=== PATIENT | female | born 1940 | race Caucasian/White ===

== ENCOUNTER 2020-01-04 10:16 | Outpatient (RCR) | payer MEDICARE, SELFPAY | END 2020-03-31 23:59 | disposition home or self-care (01) | LOC: ANHLAB 10:16 | PROVIDERS: PCP Family Medicine; Visit Provider Physician Assistant | DX: R50.9 Fever, unspecified (principal) | CPT/HCPCS: 36415; 86308; 86757; 87040 ==

== ENCOUNTER 2020-01-04 10:24 | Outpatient (CLI) | payer MEDICARE, SELFPAY ==
[2020-01-04 11:27] LABS: Monoscreen Negative (Negative); Negative Monotest Control Negative (Negative); Positive Monotest Control Positive (Positive)
== END 2020-01-04 10:25 | disposition home or self-care (01) ==
PROVIDERS: PCP Family Medicine; Visit Provider Family Medicine
DX: R50.9 Fever, unspecified (principal)
CPT/HCPCS: 36415; 86308; 86757

== ENCOUNTER → 2020-01-04 12:15 | Outpatient (CLI) | payer MEDICARE, SELFPAY ==
--- NOTE | ~2020-01-04 | CT_ITS ---
EXAMINATION: CT knee RT w con DATE: 01/04/2020 13:06 INDICATION: Fever. Right knee pain post knee replacement. TECHNIQUE: High resolution computed tomography (CT) of the right knee was performed with 75 mL Omnipa que-350 intravenous contrast. Additional sagittal and coronal reconstructions were performed. Automat ed exposure control and iterative reconstruction technique were employed. The dose-length product was 211.85 mGy-cm. COMPARISON: Right knee radiographs dated 02/05/2018 FINDINGS: Right total knee arthroplasty without patellar resurfacing which appears well seated in near-anatomic alignment. Metallic streak artifact obscures some of the adjacent bone and soft tissues most promine nt at the level of the tibial tray and surrounding portions of the femoral component. No fracture. No evident periarticular lucency to suggest loosening or osteomyelitis. Small osseous excrescence with cortical and medullary continuity along the posterolateral metaphyseal region of the proximal tibia a long the margin of the proximal tibiofibular joint line suspicious for a small osteochondroma althoug h differential would include a large degenerative marginal osteophyte. There is a small amount of sub articular cystic change along the patellar apical ridge and medial side of the lateral facet likely r elated to osteoarthritis. Postoperative scarring anterior to the knee. No right knee joint effusion. There is contrast opacification extending from the ivwju-apo-yfqp popliteal artery extending into the anterior and posterior tibial and peroneal arteries with small amount of scattered nonhemodynamicall y significant atherosclerotic plaque. There is abrupt transition in the caliber of the hleuy-tsn-ymdf popliteal vein which appears normal in caliber proximally but decompressed versus atretic more dista lly at the level of the femoral component. Assessment for patency is limited by the absence of contra st opacification of the veins. IMPRESSION: 1. Right total knee arthroplasty with no evident joint effusion or acute osseous abnormality. 2. Abrupt transition in caliber in the vnoyc-dhy-bdlj popliteal vein which is of indeterminate etiolo gy or chronicity. The phase of contrast is arterial with minimal if any contrast within the veins ocwart iting assessment for patency/thrombosis. Could consider lower extremity venous Doppler study as clini navi indicated. Reviewed, dictated and finalized at location A. TOR APPRAISER IMPRESSION: 1. Right total knee arthroplasty with no evident joint effusion or acute osseou s abnormality. 2. Abrupt transition in caliber in the wmapx-nnz-tdvz popliteal vein which is o f indeterminate etiology or chronicity. The phase of contrast is arterial with minimal if any contrast within the veins limiting assessment for patency/thromb osis. Could consider lower extremity venous Doppler study as clinically indicat ed.
[2020-01-04 12:46] LABS: Blood Urea Nitrogen 11 mg/dL (8-26); Estimated Glomerular Filt Rate > 60
== END ==
PROVIDERS: PCP Family Medicine; Visit Provider Physician Assistant
DX: M25.561 Pain in right knee (principal); R50.9 Fever, unspecified
CPT/HCPCS: 73701; Q9967

== ENCOUNTER 2020-06-23 09:00 | Outpatient (RCR) | payer SELFPAY | END 2020-06-23 23:59 | disposition home or self-care (01) | LOC: ANHAUDIO 09:00 | PROVIDERS: PCP Family Medicine | DX: Z46.1 Encounter for fitting and adjustment of hearing aid (principal) | CPT/HCPCS: 92593 ==

== ENCOUNTER 2020-10-12 10:19 | Outpatient (CLI) | payer MEDICARE, SELFPAY | END 2020-10-12 10:20 | disposition home or self-care (01) | LOC: ANHAUDASC 10:20 | PROVIDERS: PCP Family Medicine; Visit Provider Otolaryngology | DX: H61.23 Impacted cerumen, bilateral (principal); H90.3 Sensorineural hearing loss, bilateral | CPT/HCPCS: 92557; 92567 ==

== ENCOUNTER 2020-12-14 11:00 | Outpatient (RCR) | payer MEDICARE, SELFPAY | END 2020-12-14 23:59 | disposition home or self-care (01) | LOC: ANHAUDIO 11:00 | PROVIDERS: PCP Family Medicine; Visit Provider Otolaryngology | DX: Z46.1 Encounter for fitting and adjustment of hearing aid (principal) | CPT/HCPCS: 99199; V5261; V5264 ==

== ENCOUNTER 2021-05-25 13:00 | Outpatient (CLI) | payer MEDICARE, SELFPAY ==
--- NOTE | ~2021-05-25 | US_ITS ---
EXAMINATION: US venous doppler [facility] DATE: 05/25/2021 13:53 INDICATION: Left lower limb swelling TECHNIQUE: Grayscale ultrasound images without and with compression and Doppler ultrasound images of the left lower extremity veins were obtained. COMPARISON: None. FINDINGS: The visualized portions of left common femoral vein, profunda (deep) femoral vein, femoral vein, popl iteal vein, peroneal veins, posterior tibial veins, gastrocnemius vein and greater saphenous vein out flow are patent. There are couple loculated fluid collections at the left popliteal fossa, the more s uperficial measuring 3.9 x 1.6 x 2.3 cm in the deeper collection measuring 5.0 x 2.0 x 4.3 cm, the de eper consistent with a Bryan's cyst and the second likely representing an additional ganglion cyst. IMPRESSION: 1. No deep venous thrombosis in the left lower limb. 2. Moderate-sized Bryan's cyst and likely second smaller and more superficial ganglion cyst at the le ft popliteal fossa. Reviewed, dictated and finalized at location A. IMPRESSION: 1. No deep venous thrombosis in the left lower limb. 2. Moderate-sized Bryan's cyst and likely second smaller and more superficial g anglion cyst at the left popliteal fossa.
== END 2021-05-25 13:01 | disposition home or self-care (01) ==
LOC: ANHIMG 13:08
PROVIDERS: PCP Family Medicine; Visit Provider Family Medicine
DX: R60.9 Edema, unspecified (principal); M71.22 Synovial cyst of popliteal space [Baker], left knee
CPT/HCPCS: 93971

== ENCOUNTER 2021-06-20 12:27 | Outpatient (CLI) | payer MEDICARE, SELFPAY ==
--- NOTE | ~2021-06-20 | XR_ITS ---
XR chest 2V DATE: 06/20/2021 12:49 INDICATION: Shortness of breath, hypertension, atrial fibrillation. TECHNIQUE: PA and lateral views COMPARISON: 07/31/2019 2 view chest FINDINGS: Normal heart size. Normal aortic unfolding. No hilar or mediastinal enlargement. Hiatal hernia. No pulmonary infiltrate or consolidation, pleural effusion or pulmonary vascular congestion or pneumo thorax is detected. Degenerative spurring and minimal dextroscoliosis of the thoracic spine. Osteopenia. IMPRESSION: No active cardiopulmonary disease or significant change since 07/31/2019 Reviewed, dictated and finalized at location A. IMPRESSION: No active cardiopulmonary disease or significant change since 2018
== END 2021-06-20 12:28 | disposition home or self-care (01) ==
PROVIDERS: PCP Family Medicine; Visit Provider Nurse Practitioner Family
DX: R06.02 Shortness of breath (principal)
CPT/HCPCS: 71046

== ENCOUNTER 2021-07-06 11:09 | Outpatient (CLI) | payer MEDICARE, SELFPAY ==
--- NOTE | ~2021-07-06 | XR_ITS ---
XR hip RT min 2V DATE: 07/06/2021 11:25 INDICATION: Right hip pain TECHNIQUE: AP and lateral views COMPARISON: 07/24/2016 right hip FINDINGS: There is levoscoliosis the lumbar spine and prominent degenerative disc disease at L4-5 and L5-S1. The pubic symphysis and sacroiliac joints are intact. No fracture, dislocation, avascular necrosis or bone destruction of the right hip. IMPRESSION: Levoscoliosis and degenerative disc disease of the lumbar spine No significant abnormality of the right hip Reviewed, dictated and finalized at location B.
== END 2021-07-06 11:10 | disposition home or self-care (01) ==
PROVIDERS: PCP Family Medicine; Visit Provider Family Medicine
DX: M25.551 Pain in right hip (principal); M51.36 Other intervertebral disc degeneration, lumbar region
CPT/HCPCS: 73502

== ENCOUNTER 2021-07-09 20:11 | Observation (INO) | payer MEDICARE, SELFPAY ==
--- NOTE | ~2021-07-09 | CT_ITS ---
EXAMINATION: CT abd pelvis lumbar w con DATE: 07/09/2021 22:45 INDICATION: Lower abdominal and right flank pain, back pain TECHNIQUE: Computed tomography (CT) of the abdomen and pelvis was performed with 100 cc Omnipaque 350 intravenous contrast. Automated exposure control and iterative reconstruction technique were employe d. Exam dose: 1007.48 mGy-cm total exam DLP. COMPARISON: 08/13/2016 MRI lumbar spine FINDINGS: Minimal discoid atelectasis or scarring at the lung bases. Heart size is within normal rang e. No pericardial or pleural effusion. Moderate size hiatal hernia. The liver, gallbladder, bile ducts, spleen, pancreas and pancreatic duct, and adrenal glands and kidn eys are unremarkable. No urinary tract calculus or hydroureteronephrosis is detected. The urinary cristina dder is relatively evacuated, which may account for moderate thickening of the wall. Uterus and adnex al areas are unremarkable. There is atherosclerotic calcification of the abdominal aorta and iliac arteries but no aneurysm. No intraperitoneal or retroperitoneal or pelvic mass lesion or adenopathy or ascites is detected. Diverticulosis is noted involving the sigmoid colon and to a minimal extent right colon. No CT eviden ce of diverticulitis. Normal appendix. No bowel obstruction, bowel wall thickening, pneumatosis or in traperitoneal free air is detected. Small fat-containing umbilical hernia. Diffuse idiopathic skeletal hyperostosis of the thoracic spine. Mild compression fracture deformity o f T12. Multilevel degenerative disc disease of the lumbar spine. Grade 1 anterolisthesis at L4-5 and L5-S1. Prominent degenerative change at the apophyseal joints. IMPRESSION: Diverticulosis of the colon; no CT evidence of diverticulitis Normal appendix No urinary tract calculus or hydroureteronephrosis Moderate sized hiatal hernia Mild compression fracture deformity of T12, new since 08/13/2016 MRI of the lumbar spine Reviewed, dictated and finalized at Location [facility]. Reviewed, dictated and finalized at location A. IMPRESSION: Diverticulosis of the colon; no CT evidence of diverticulitis Normal appendix No urinary tract calculus or hydroureteronephrosis Moderate sized hiatal hernia Mild compression fracture deformity of T12, new since 08/13/2016 MRI of the lumb ar spine
[2021-07-09 20:10] VITALS: BP 216/94; PULSE 89; RESP 16; TEMP 36.6; O2SAT 95
--- NOTE | 2021-07-09 20:30 | ED.ABDPAIN ---
HPI - Abdominal Pain General Chief Complaint: Back Pain/Injury Stated Complaint: right flank pain Time Seen by Provider: 07/09/21 20:30 History of Present Illness HPI narrative: Right lower back pain radiating into the right hip for weeks. Much worse over the past few days. Causing difficulty with ambulating and taking care of herself. She has had outpatient x-rays and was started on Sargeant without relief. Related Data Home Medications Medication Instructions Recorded Confirmed aspirin 81 mg tablet,delayed 81 mg PO DAILY 11/26/19 07/10/21 release flecainide 100 mg tablet 100 mg PO Q12H 11/26/19 07/10/21 mecobalamin (vitamin B12) 1,000 2,000 mcg SUBLINGUAL DAILY tablet 12/04/19 07/10/21 mcg disintegrating tablet,sublingual prednisone 5 mg tablet 10 mg PO DAILY 11/04/20 07/10/21 leflunomide 20 mg tablet 10 mg PO DAILY 05/25/21 07/10/21 [place] 3 Fish Oil 100 mg PO DAILY 07/09/21 07/10/21 calcium carbonate-vitamin D3 1 tablet PO DAILY 07/09/21 07/10/21 [Calcium with Vitamin D] acebutolol 200 mg PO DAILY 07/10/21 07/10/21 atorvastatin 10 mg PO DAILY 07/10/21 07/10/21 [id number]-czydybtgh-brmdjfal 1 inh INHALATION DAILY 07/10/21 07/10/21 [Trelegy Ellipta] indapamide 1.25 mg PO DAILY 07/10/21 07/10/21 levothyroxine [Synthroid] 75 mcg PO DAILY 07/10/21 07/10/21 Allergies Allergy/AdvReac Type Severity Reaction Status Date / Time No Known Allergies Allergy Unknown Verified 06/20/21 11:56 Review of Systems Review of Systems: All systems reviewed & are unremarkable except as noted in HPI and below Constitutional: Constitutional: Denies chills and Denies fever(s) ENT: Reports system reviewed and no additional complaints, except as documented Cardiovascular: Cardiovascular: Denies chest pain Respiratory: Respiratory: Denies dyspnea Gastrointestinal: Gastrointestinal: Reports no additional gastrointestinal complaints Genitourinary: Genitourinary: Reports flank pain Musculoskeletal: Musculoskeletal: Reports back pain Neurologic: Reports system reviewed and no additional complaints, except as documented [facility] Past Medical History Medical History COPD exacerbation Essential (primary) hypertension High cholesterol Primary osteoarthritis of left knee Strabismus Temporal arteritis Thyroid disease Surgical History Surgical History H/O cataract extraction History of knee surgery right knee 2019 Family History Family History Father Acute myocardial infarction Family history of cardiovascular disease Family history of sudden , Onset Age: 46 Family history of elevated blood lipids Family history of coronary artery disease Grandparent Diabetes mellitus Family history of coronary artery disease Family history of malignant neoplasm of breast in first degree relative Mother Family history of glaucoma Hypertension Family history of elevated blood lipids Sibling Hypertension Social History Social History Smoking status: Never smoker Second hand tobacco smoke exposure: Yes Alcohol intake: current Drinks per week: 2 Substance use: never Gender identity (if verbalized by the patient): Female Spiritual care concerns: No Exam Const: General: no acute distress and alert Orientation/consciousness: patient oriented x3 HENMT: Head: normal to inspection Resp: Effort & Inspection: normal respiratory effort Auscultation: clear to auscultation bilaterally Cardio: Rate: regular rate Rhythm: regular rhythm GI: GI Palp: Yes Soft to palpation and No Tenderness to palpation present (GI) : General: Yes CVA tenderness on the right Back/Spine/Pelvis: Thoracic/Lumbar Spine: paraspinal muscle tenderness and lumbar spinal tenderness Sacroiliac joints: on
--- NOTE | 2021-07-09 20:49 | ECG_ITS ---
Measurements Intervals [place] Rate: 83 P: 27 W[place]: 175 QRS: -33 QRSD: 86 T: 24 QT: 371 QTc: 436 Interpretive Statements SINUS RHYTHM LOW QRS VOLTAGE IN PRECORDIAL LEADS VOLTAGE CRITERIA FOR LVH BORDERLINE R WAVE PROGRESSION, ANTERIOR LEADS INFERIOR INFARCT, AGE INDETERMINATE BASELINE ARTIFACT- I, II, III, AVR, AVL, AVF, V1-V6 ABNORMAL ECG Electronically Signed On 07-10-2021 7:00:25 CDT by Gael Rincon D.O.
[2021-07-09 21:02] VITALS: BP 220/202; PULSE 85; RESP 14; O2SAT 95
[2021-07-09 21:04] VITALS: BP 180/89; PULSE 86; RESP 11; O2SAT 95
[2021-07-09 21:12] VITALS: BP 196/105; PULSE 86; RESP 15; O2SAT 95
[2021-07-09] MEDS: LABETALOL HCL INJ 100 MG/20 ML VIAL 20 MG IV PUSH (21:12)
[2021-07-09] MEDS: MORPHINE SULFATE (*CRX) 4 MG/ML INJ IV PUSH (21:14)
[2021-07-09 21:19] LABS: Hematocrit 46.3 % (37.0-47.0); Hemoglobin 15.3 g/dL (12.0-15.0); Mean Corpuscular Hemoglobin 32.8 pg (26-34); Mean Corpuscular Volume 99.1 fl (80-100); Mean Platelet Volume 10.3 fl (7.4-10.4); Platelet Count Result 151 k/mm3 (150-375); Red Blood Count 4.67 M/mm3 (4.2-5.4); Red Cell Distribution Width 13.8 % (11.5-14.5); White Blood Count 8.3 K/mm3 (4.5-10.0)
[2021-07-09 21:28] LABS: INR 1.4; Prothrombin Time 16.7 Seconds (11.1-14.7)
[2021-07-09 21:29] LABS: Alanine Aminotransferase 20 U/L (4-35); Albumin Level 4.4 g/dL (3.5-5.1); Alkaline Phosphatase 98 U/L (38-126); Anion Gap 7 mmol/L (8-16); Aspartate Amino Transferase 30 U/L (14-36); Blood Urea Nitrogen 11 mg/dL (7-17); Calcium 9.9 mg/dL (8.4-10.2); Carbon Dioxide 28 mmol/L (22-30); Chloride 102 mmol/L (98-107); Estimated CRCL calculation 57 ml/min; Estimated Glomerular Filt Rate > 60; Glucose 106 mg/dL (65-110); Partial Thromboplastin Time 26.7 SECONDS (22.3-36.8); Potassium 3.7 mmol/L (3.4-5.0); Sodium 137 mmol/L (137-145)
[2021-07-09 21:53] LABS: Band Neutrophils Percent 6 % (0-6); Lymphocytes Absolute Manual 0.91 K/mm3 (1.1-4.5); Monocytes Absolute Manual 1.57 K/mm3 (0.1-0.90); Monocytes Percent Manual 19 % (3-9); Neutrophils Absolute Manual 5.81 K/mm3 (1.7-7.2); Neutrophils Percent Manual 64 % (46-73); Platelet Estimate Adequate (Adequate); Total Cells Counted 100
[2021-07-09 22:00] LABS: Add Urine Microscopic? YES; Appearance Urine Clear (Clear); Bilirubin Urine Negative (Negative); Blood Urine Negative (Negative); Color Urine Yellow (Yellow); Glucose Urine UA Negative (Negative); Ketones Urine Negative (Negative); Leukocyte Esterase Ur Trace LEU/UL (Negative); Mucus Urine Rare /lpf; Nitrate Urine Negative (Negative); Protein Urine Negative (Negative); RBC Urine 0-2 /hpf (0-2); Specific Grav Ur 1.012 (1.001-1.035); Squamous Epithelial Cell Urine Many /hpf (Few); Urobilinogen Urine Negative mg/dL (<2.0)
[2021-07-10] VITALS (11 sets, daily range): BP systolic 111–173; BP diastolic 59–84; PULSE 74–93; RESP 9–22; TEMP 36–36.4; O2SAT 92–96; BMI 36.5
[2021-07-10] MEDS: MORPHINE SULFATE (*CRX) 2 MG/ML INJ IV PUSH ×4 (02:43→21:08)
--- NOTE | 2021-07-10 03:31 | ADMGEN ---
This patient, Nidia Lang, was admitted to 2 Medical Room 244-. Patient/family oriented to hospital policies and general routines including ID bracelet, bed and alarms, visiting hours, pain management, procedures, bathroom and other care routines, personal items, smoking policy, room service/diet, and visiting hours. Information on how to activate the Rapid Response Team has been discussed. Patient/Family are encouraged to report perceived risks to care and to ask questions if they do not understand what they are told or what they should do.
[2021-07-10] MEDS: CYANOCOBALAMIN 1,000 MCG TABLET 2000 MCG PO (11:14)
[2021-07-10] MEDS: FLECAINIDE ACETATE 100 MG TABLET PO ×2 (11:14→21:08)
[2021-07-10] MEDS: ASPIRIN 81 MG ENTERIC TABLET PO (11:14)
[2021-07-10] MEDS: INDAPAMIDE 1.25 MG TABLET PO (11:14)
[2021-07-10] MEDS: ACEBUTOLOL HCL 200 MG CAPSULE PO (11:17)
[2021-07-10] MEDS: allopurinoL 100 MG TABLET PO (11:17)
[2021-07-10] MEDS: ATORVASTATIN 10 MG TABLET PO (11:17)
[2021-07-10] MEDS: predniSONE 10 MG TABLET PO (11:17)
--- NOTE | 2021-07-10 12:32 | PM.IMHP ---
H&P: HPI History of Present Illness Date/Time: 07/10/21 12:32 patient 81-year-old female with history of rheumatoid arthritis as well as osteoarthritis presented emergency department with a complaint back pain radiating to right hip, pain is persisting for few weeks now will couple of days its getting worse and difficulty with ambulation and able to do her ADLs, will start the patient on steroid and gabapentin to help with her pain and have PT OT evaluate the patient and further recommendation to follow. also a presenting complaint was abdominal pain CT scan of abdomen did not show diverticulitis or any other pathology, patient does have my T12 compression fracture age indeterminate, will apply Lidoderm patch, will continue to monitor and further recommendation to follow. Chief Complaint: back and abdominal pain Review of Systems Review of Systems: All systems reviewed & are unremarkable except as noted in HPI and below PMFSH Past Medical History Medical History COPD exacerbation Essential (primary) hypertension High cholesterol Primary osteoarthritis of left knee Strabismus Temporal arteritis Thyroid disease Surgical History Surgical History H/O cataract extraction History of knee surgery right knee 2019 Family History Family History Father Acute myocardial infarction Family history of cardiovascular disease Family history of sudden , Onset Age: 46 Family history of elevated blood lipids Family history of coronary artery disease Grandparent Diabetes mellitus Family history of coronary artery disease Family history of malignant neoplasm of breast in first degree relative Mother Family history of glaucoma Hypertension Family history of elevated blood lipids Sibling Hypertension Social History Social History Smoking status: Never smoker Second hand tobacco smoke exposure: Yes Alcohol intake: current Drinks per week: 2 Substance use: never Gender identity (if verbalized by the patient): Female Spiritual care concerns: No Meds Home Medications and Allergies Home Medications Medication Instructions Recorded Confirmed Type aspirin 81 mg tablet,delayed 81 mg PO DAILY 11/26/19 07/10/21 History release flecainide 100 mg tablet 100 mg PO Q12H 11/26/19 07/10/21 History mecobalamin (vitamin B12) 1,000 2,000 mcg SUBLINGUAL DAILY tablet 12/04/19 07/10/21 History mcg disintegrating tablet,sublingual prednisone 5 mg tablet 10 mg PO DAILY 11/04/20 07/10/21 History allopurinol 100 mg tablet 100 mg PO DAILY #90 tablet 11/10/20 07/10/21 Rx leflunomide 20 mg tablet 10 mg PO DAILY 05/25/21 07/10/21 History albuterol sulfate 90 mcg/actuation 1 - 2 inh INHALATION Q4-6H PRN 06/20/21 07/10/21 Rx aerosol inhaler #8.5 g [place] 3 Fish Oil 100 mg PO DAILY 07/09/21 07/10/21 History calcium carbonate-vitamin D3 1 tablet PO DAILY 07/09/21 07/10/21 History [Calcium with Vitamin D] acebutolol 200 mg PO DAILY 07/10/21 07/10/21 History atorvastatin 10 mg PO DAILY 07/10/21 07/10/21 History eiwfqliiust-atsbospvp-wgzbwqub 1 inh INHALATION DAILY 07/10/21 07/10/21 History [Trelegy Ellipta] indapamide 1.25 mg PO DAILY 07/10/21 07/10/21 History levothyroxine [Synthroid] 75 mcg PO DAILY 07/10/21 07/10/21 History Allergies Allergy/AdvReac Type Severity Reaction Status Date / Time No Known Allergies Allergy Unknown Verified 06/20/21 11:56 Vital Signs Vital Signs - 24 hr 07/09/21 20:10 07/09/21 21:02 07/09/21 21:04 Temperature 97.9 F Pulse Rate 89 85 86 Respiratory Rate 16 14 11 L Blood Pressure 216/94 H 220/202 H 180/89 H Pulse Oximetry 95 95 95 07/09/21 21:12 07/10/21 00:32 07/10/21 01:02 Temperature Pulse Rate 86 81 78 Respiratory Rate 15 9 L 2
[2021-07-10] MEDS: LIDOCAINE 5% PATCH 2 PATCH TRANSDERM (15:42)
[2021-07-10] MEDS: OMEGA 3 POLYUNSAT FATTY ACIDS 1 GM CAP PO (15:43)
[2021-07-10] MEDS: methylPREDNISolone SOD SUCC 125 MG VIAL 60 MG IV PUSH (15:43)
[2021-07-10] MEDS: LEFLUNOMIDE 10 MG TABLET 1 EACH BY MOUTH (15:44)
[2021-07-10] MEDS: GABAPENTIN 100 MG CAPSULE PO ×2 (16:18→18:09)
[2021-07-10] MEDS: methylPREDNISolone SOD SUCC 40 MG VIAL 20 MG IV PUSH (21:07)
[2021-07-11 05:38] VITALS: BP 140/73; PULSE 94; RESP 18; TEMP 36.3; O2SAT 93
[2021-07-11] MEDS: LIDOCAINE 5% PATCH 2 PATCH TRANSDERM (08:44)
[2021-07-11 08:45] VITALS: PULSE 100
[2021-07-11] MEDS: ACEBUTOLOL HCL 200 MG CAPSULE PO (08:45)
[2021-07-11] MEDS: allopurinoL 100 MG TABLET PO (08:45)
[2021-07-11] MEDS: GABAPENTIN 100 MG CAPSULE PO (08:46)
[2021-07-11] MEDS: ATORVASTATIN 10 MG TABLET PO (08:46)
[2021-07-11] MEDS: CYANOCOBALAMIN 1,000 MCG TABLET 2000 MCG PO (08:46)
[2021-07-11] MEDS: ASPIRIN 81 MG ENTERIC TABLET PO (08:47)
[2021-07-11] MEDS: LEFLUNOMIDE 10 MG TABLET 1 EACH BY MOUTH (08:47)
[2021-07-11] MEDS: INDAPAMIDE 1.25 MG TABLET PO (08:47)
[2021-07-11] MEDS: OMEGA 3 POLYUNSAT FATTY ACIDS 1 GM CAP PO (08:47)
[2021-07-11 08:48] VITALS: PULSE 100
[2021-07-11] MEDS: FLECAINIDE ACETATE 100 MG TABLET PO (08:48)
--- NOTE | 2021-07-11 09:27 | PM.IMPN ---
Progress Note: A&P Assessment and Plan (1) Low back pain: Code(s): M54.5 - Low back pain Status: Acute Assessment and Plan: 07/10/21 12:32 patient 81-year-old female with history of rheumatoid arthritis as well as osteoarthritis presented emergency department with a complaint back pain radiating to right hip, pain is persisting for few weeks now will couple of days its getting worse and difficulty with ambulation and able to do her ADLs, will start the patient on steroid and gabapentin to help with her pain and have PT OT evaluate the patient and further recommendation to follow. also a presenting complaint was abdominal pain CT scan of abdomen did not show diverticulitis or any other pathology, patient does have my T12 compression fracture age indeterminate, will apply Lidoderm patch, will continue to monitor and further recommendation to follow. (2) Uncontrolled hypertension: Code(s): I10 - Essential (primary) hypertension Status: Acute Assessment and Plan: upon arrival patient blood pressure was extremity 216/94, most likely secondary to pain and patient may have not taken home medication, since then patient blood pressure is close to target will continue to monitor. (3) Right hip pain: Code(s): M25.551 - Pain in right hip Status: Acute Assessment and Plan: patient with history of osteoarthritis, most likely patient has osteoarthritis will start the patient on steroid and gabapentin, will have PT OT evaluate the patient and further recommendation to follow. (4) Primary osteoarthritis of left knee: Code(s): M17.12 - Unilateral primary osteoarthritis, left knee Status: Chronic Assessment and Plan: patient with history of osteoarthritis of the knee seen by orthopedic surgeon recommending arthroplasty however patient on oral prednisone due to temporal arteritis unable to get off the prednisone, surgery is on hold until patient is off the prednisone. (5) Temporal arteritis: Code(s): M31.6 - Other giant cell arteritis Status: Chronic Assessment and Plan: patient with a temperature arthritis seen by Rheumatology on prednisone states the headache is better. Subjective Date/time seen: 07/11/21 09:27 Review of Systems Review of Systems: All systems reviewed & are unremarkable except as noted in HPI and below Exam Narrative: elderly frail hard of hearing Patient is comfortable, NAD HEENT: eyes are clear and none icteric LUNGS:CTA HEART: RR S1S2 ABD: BS+, Soft and nontender Lower extremities: no edema SKIN: nonjaundiced Neuro: grossly intact. Objective Data Vital Signs Vital Signs: Vital Signs - 24 hr 07/10/21 11:14 07/10/21 11:17 07/10/21 12:00 Temperature 96.9 F L Pulse Rate 93 93 74 Respiratory Rate 16 Blood Pressure 111/68 Pulse Oximetry 94 07/10/21 21:08 07/10/21 21:37 07/11/21 05:38 Temperature 97.6 F 97.4 F L Pulse Rate 74 85 94 Respiratory Rate 18 18 Blood Pressure 138/59 L 140/73 Pulse Oximetry 92 93 07/11/21 08:45 07/11/21 08:48 Temperature Pulse Rate 100 100 Respiratory Rate Blood Pressure Pulse Oximetry Intake/Output Intake/Output: Intake & Output 07/08/21 07/09/21 07/10/21 07/11/21 23:59 23:59 23:59 23:59 Intake Total 760 200 Output Total 400 100 Balance 360 100 Meds/Results Medications: Active Medications Generic Name Dose Route Start Last Admin Trade Name Freq PRN Reason Stop Dose Admin Acebutolol HCl 200 mg 07/10/21 09:00 07/11/21 08:45 Acebutolol Hcl 200 Mg Capsule PO 200 mg DAILY KEYON Administration Albuterol 1 - 2 puff 07/10/21 10:04 Albuterol Sulfate (*Sp) Aerosol 1 Puff INHALATION Q4-6H PRN shortness of breath or wheezing Allopurinol 100 mg 07/10/21 09:00 07/11/21 08:45 Allopurinol 100 Mg Tablet PO 100 mg DAILY KEYON Administration Aspirin 81 mg 07/10/21 09:00 07/11/21 08:47 Aspirin 81 Mg
--- NOTE | 2021-07-11 09:51 | PM.DS ---
DS: Admitting Diagnosis Admitting Diagnosis back pain right hip pain DS: Discharge Diagnosis Discharge Diagnosis (1) Low back pain: Code(s): M54.5 - Low back pain Status: Acute (2) Uncontrolled hypertension: Code(s): I10 - Essential (primary) hypertension Status: Acute (3) Right hip pain: Code(s): M25.551 - Pain in right hip Status: Acute (4) Temporal arteritis: Code(s): M31.6 - Other giant cell arteritis Status: Chronic DS: Summary Hospital Course Hospital Course: 81-year-old female with history of rheumatoid arthritis as well as osteoarthritis presented emergency department with a complaint back pain radiating to right hip, pain is persisting for few weeks now will couple of days its getting worse and difficulty with ambulation and able to do her ADLs. patient had seen primary care doctor who has ordered x-rays and Vicodin for pain control however pain was not bearable hands came to the ER for evaluation. She was evaluated with a right hip x-ray which showed levoscoliosis and degenerative disc disease of the lumbar spine with no significant abnormality in the right hip. A CT of the abdomen pelvis lumbar with contrast was done which showed diverticulosis of the colon with no evidence of diverticulitis. With normal apnea next. No urinary tract calculus or hydronephrosis. Shows moderate-size hiatal hernia with mild compression fracture deformity of T12 which is new since 2015 MRI she was started on IV steroid along with gabapentin is small does and lidocaine patch. She was evaluated with physical therapy and occupational therapy during the hospital stay. She improved with these management. Is suspected that the pain is related to lumbar strain versus osteoarthritis and degenerative disc disease in the back. She does not have any evidence of any fracture or any osteoarthritis in the hip. She has had gabapentin in the past with limited success however she did improve with start of this medication has suggested to continue and follow up as an outpatient for continued need for this medication. She was suggested to have home health therapy to continue physical therapy and occupational therapy at home which is arranged at the time of discharge. With improvement with steroid her ASD and usual prednisone dose was increased to 20 mg a day with further taper in the next week or 2 back to her usual doses of 10 mg daily. She takes prednisone 10 mg a day for history of temporal arteritis. She was noted have uncontrolled hypertension on admission which is most likely related to her pain. Her blood pressure was better controlled with better control of the pain and was within normal limit at the time of discharge. She was continued on her usual home medications for her blood pressure during the hospital stay. She is advised to follow up with primary care doctor for continued evaluation and management of her back pain/ right hip pain Quality Status at Discharge Overall status at discharge: patient is progressing back to baseline Time Spent with Patient Time attestation: Total time spent providing and/or coordinating discharge services: 45 minutes Exam Narrative: elderly frail hard of hearing not in acute distress Patient is comfortable, NAD HEENT: eyes are clear and none icteric LUNGS:CTA no respiratory distress HEART: RR S1S2 ABD: BS+, Soft and nontender Lower extremities: no edema no cyanosis or clubbing SKIN: nonjaundiced Neuro: grossly intact. alert and oriented x3 able to ambulate without any support /device DS: Data Imaging Radiologist's impression: ITS Impressions Miscellaneous CT Procedure 07/10/21 06:58 IMPRESSION: Diverticulosis of the colon; no CT evidence of diverticulitis Normal appendix No urinary tract calculus or hydroureteronephrosis Moderate sized hiatal hernia Mild compression fracture deformity of T12, new since 08/13/2016 MRI of the lumbar spine
[2021-07-11] MEDS: FLUTICASONE/UMECLIDIN/VILANTER 100-62.5-25 MCG ELLIPTA 1 PUFF INHALATION (10:20)
[2021-07-11 10:22] VITALS: O2SAT 95
[2021-07-11] MEDS: predniSONE 20 MG TABLET PO (10:33)
--- NOTE | 2021-07-11 11:08 | PCOTNOTE ---
Attempted to see patient, patient declined as she was getting discharged.
== END 2021-07-11 11:56 | disposition home health service (06) ==
LOC: ANHED 07-10 03:03 → ANH2MED 07-10 06:30
PROVIDERS: Admitting Provider Internal Medicine; Emergency Provider Emergency Medicine; PCP Family Medicine; Visit Provider Internal Medicine
DX: M54.5 Low back pain (principal); M48.54XA Collapsed vertebra, not elsewhere classified, thoracic region, initial encounter for fracture; I10 Essential (primary) hypertension; J44.9 Chronic obstructive pulmonary disease, unspecified; E78.00 Pure hypercholesterolemia, unspecified; M31.6 Other giant cell arteritis; M06.9 Rheumatoid arthritis, unspecified; E07.9 Disorder of thyroid, unspecified; Z79.82 Long term (current) use of aspirin; Z79.51 Long term (current) use of inhaled steroids; K57.30 Diverticulosis of large intestine without perforation or abscess without bleeding; K44.9 Diaphragmatic hernia without obstruction or gangrene
CPT/HCPCS: 36415; 72132; 74177; 80053; 81001; 85025; 85610; 85730; 93005; 96374; 96375; 96376; 97110; 97161; 97165; 99285; A9270; G0378; J2270; J2920; J2930; J7512; Q9967

== ENCOUNTER 2021-07-23 11:58 | Emergency (ER) | payer MEDICARE, SELFPAY ==
[2021-07-23 12:00] VITALS: BP 158/89; PULSE 80; RESP 16; TEMP 36.4; O2SAT 96
--- NOTE | 2021-07-23 13:01 | ED.BACK ---
HPI - Back Pain/Injury General Chief Complaint: Back Pain/Injury Stated Complaint: BACK PAIN Time Seen by Provider: 07/23/21 12:49 History of Present Illness HPI Narrative: 81 yo female w/ h/o compression fracture presents to the ED c/o back pain. She was admitted here 2 weeks ago for pain control after she was found to have a lumbar compression fracture. She has been on hydrocodone 10/325 mg. She reports that this was not controlling her pain, so tramadol 100 mg was added. Even after taking both of these this morning her pain was not controlled. On the way here EMS gave her 4 mg morphine. She says that improved her pain ,but it is still significant. She refused penitentiary placement. She has an appointment with pain management next week. Related Data Home Medications Medication Instructions Recorded Confirmed aspirin 81 mg tablet,delayed 81 mg PO DAILY 11/26/19 07/18/21 release [place] 3 Fish Oil 100 mg PO DAILY 07/09/21 07/18/21 calcium carbonate-vitamin D3 1 tablet PO DAILY 07/09/21 07/18/21 [Calcium with Vitamin D] Trelegy Ellipta 1 inh INHALATION DAILY 07/10/21 07/18/21 acebutolol 200 mg PO DAILY 07/10/21 07/18/21 indapamide 1.25 mg PO DAILY 07/10/21 07/18/21 levothyroxine [Synthroid] 75 mcg PO DAILY 07/10/21 07/18/21 Allergies Allergy/AdvReac Type Severity Reaction Status Date / Time No Known Allergies Allergy Unknown Verified 07/23/21 12:20 Review of Systems Review of Systems: All systems reviewed & are unremarkable except as noted in HPI and below Constitutional: Constitutional: Denies chills, Denies fever(s) and Denies weakness ENT: Denies dizziness Cardiovascular: Cardiovascular: Denies chest pain Respiratory: Respiratory: Denies dyspnea Gastrointestinal: Gastrointestinal: Denies nausea Genitourinary: Genitourinary: Denies hematuria and Denies dysuria Musculoskeletal: Musculoskeletal: Reports back pain Neurologic: Denies numbness and Denies weakness [facility] Past Medical History Medical History COPD exacerbation Essential (primary) hypertension High cholesterol Primary osteoarthritis of left knee Strabismus Temporal arteritis Thyroid disease Surgical History Surgical History H/O cataract extraction History of knee surgery right knee 2019 Family History Family History Father Acute myocardial infarction Family history of cardiovascular disease Family history of sudden , Onset Age: 46 Family history of elevated blood lipids Family history of coronary artery disease Grandparent Diabetes mellitus Family history of coronary artery disease Family history of malignant neoplasm of breast in first degree relative Mother Family history of glaucoma Hypertension Family history of elevated blood lipids Sibling Hypertension Social History Social History Smoking status: Never smoker Second hand tobacco smoke exposure: Yes Alcohol intake: current Drinks per week: 2 Substance use: never Gender identity (if verbalized by the patient): Female Spiritual care concerns: No Exam Const: General: cooperative, no acute distress and uncomfortable Nutritional Appearance: well nourished Orientation/consciousness: patient oriented x3 HENMT: Head: normal to inspection Resp: Effort & Inspection: normal respiratory effort Auscultation: clear to auscultation bilaterally Cardio: Rate: regular rate Rhythm: regular rhythm Skin: General skin exam: normal color Neuro: General: patient oriented x3, moves all extremities, no focal motor deficits and CN's II-XI intact bilaterally Speech: normal speech Extrem: General: normal to inspection Psych: Appearance: grossly normal Mental Status: mental status grossly normal Affect: normal affect At
[2021-07-23] MEDS: HYDROmorphone HCL INJ (*CRX) 1 MG/ML SYR 0.5 MG IM (14:59)
[2021-07-23 16:05] VITALS: BP 173/86; PULSE 74; RESP 16; O2SAT 100
== END 2021-07-23 16:05 | disposition home or self-care (01) ==
PROVIDERS: Emergency Provider Emergency Medicine; PCP Family Medicine
DX: M54.5 Low back pain (principal); J44.9 Chronic obstructive pulmonary disease, unspecified; I10 Essential (primary) hypertension; Z79.82 Long term (current) use of aspirin
CPT/HCPCS: 96372; 99283; J1170

== ENCOUNTER → 2021-08-03 17:49 | Outpatient (CLI) | payer MEDICARE, SELFPAY ==
--- NOTE | ~2021-08-03 | MR_ITS ---
EXAMINATION: MR lumbar spine wo con DATE: 08/03/2021 18:43 INDICATION: Acute lumbar radiculopathy. TECHNIQUE: Magnetic resonance imaging (MRI) of the lumbar spine was performed without intravenous con trast. Sequences included sagittal T2-weighted FSE, sagittal T2-weighted FS FSE, sagittal STIR FSE, s agittal T1-weighted FSE, and axial T2-weighted FSE. COMPARISON: Lumbar spine MRI 08/13/2016, CT 07/09/2021 FINDINGS: There is 22 degrees levoscoliosis of lumbar spine. There is a burst fracture of L1 inferior endplate with 1/5 loss of height of bone marrow edema, and retropulsion of bone 3 mm into central sp inal canal. There is 3 mm retrolisthesis of T12 on L1 and L1 on L2, 3 mm anterolisthesis of L3 on L4, and 5 mm anterolisthesis of L5 on S1. There is a chronic compression fracture of T12 with 1/5 loss o f height. There is severely decreased disc height at L1-L2 and L2-L3, mildly decreased disc height at L3-L4, severely decreased disc height at L4-L5, and moderately decreased disc height at L5-S1. The d istal spinal cord signal intensity is normal. The conus medullaris is at L2. The following disc level s are specifically discussed: L1-L2: The disc is bulging and has an annular fissure. There is severe bilateral facet joint osteoart hritis. There is moderate right and mild left neural foraminal stenosis. There is moderate central ca nal stenosis. L2-L3: The disc is bulging. There is severe bilateral facet joint osteoarthritis. There is mild bilat eral neural foraminal stenosis. There is mild central canal stenosis. L3-L4: The disc is bulging and has an annular fissure. There is severe bilateral facet joint osteoart hritis. There is mild bilateral neural foraminal stenosis. There is moderate central canal stenosis. L4-L5: The disc is bulging and has an annular fissure. There is severe bilateral facet joint osteoart hritis. There is mild bilateral neural foraminal stenosis. There is mild central canal stenosis. L5-S1: The disc is bulging and has an annular fissure. There is severe bilateral facet joint osteoart hritis. There is mild bilateral neural foraminal stenosis. There is no central canal stenosis. IMPRESSION: 1. Acute L1 burst fracture, new from 07/09/2021. 2. Severe lumbar spondylosis. 3. Lumbar levoscoliosis. Reviewed, dictated and finalized at location A.
== END ==
PROVIDERS: PCP Family Medicine; Visit Provider Pain Medicine Pain Medicine
DX: M54.16 Radiculopathy, lumbar region (principal); M47.816 Spondylosis without myelopathy or radiculopathy, lumbar region; S32.011A Stable burst fracture of first lumbar vertebra, initial encounter for closed fracture; M41.9 Scoliosis, unspecified
CPT/HCPCS: 72148

== ENCOUNTER 2021-09-03 08:50 | Inpatient (IN) | payer MEDICARE, SELFPAY ==
[2021-09-03] VITALS (9 sets, daily range): BP systolic 117–177; BP diastolic 63–104; PULSE 70–83; RESP 12–18; TEMP 36.3–36.6; O2SAT 94–99
--- NOTE | ~2021-09-03 | CT_ITS ---
EXAMINATION: CT abdomen pelvis wo con DATE: 09/03/2021 12:53 INDICATION: History of compression fracture. Abdomen pain. Bilateral hip pain. TECHNIQUE: Computed tomography (CT) of the abdomen and pelvis was performed without intravenous contr ast. The dose-length product was 1146.71 mGy-cm. Automated exposure control and iterative reconstruction technique were employed. COMPARISON: CT lumbar spine and abdomen dated 07/09/2021. FINDINGS: Lung bases are unremarkable. Heart size normal. No significant pleural or pericardial effus ion. The liver, spleen, pancreas, adrenal glands and kidneys are unremarkable. Gallbladder is mildly diste nded. Nonobstructive bowel gas pattern. Normal appendix. Colonic diverticulosis without evidence for diverticulitis. There is focal soft tissue anterior to the left psoas muscle measuring 2.8 x 1.3 cm w hich has a cystic appearance, likely benign. There is a new compression fracture of L1. There is stab le chronic T12 compression fracture at the superior endplate. There is levoscoliosis. There is osteoa rthritis of the hips. No acute hip fracture is identified. No definite sacral fracture. No significan t vascular abnormality. No lymphadenopathy. IMPRESSION: 1. New L1 compression fracture with approximately 25% loss of vertebral body height. 2: Stable superior endplate compression fracture of T12. Reviewed, dictated and finalized at location A. IMPRESSION: 1. New L1 compression fracture with approximately 25% loss of vertebral body he ight. 2: Stable superior endplate compression fracture of T12.
--- NOTE | ~2021-09-03 | XR_ITS ---
XR hip BI 2V w AP pelvis 09/03/2021 11:24 INDICATION: Bilateral hip pain PROCEDURE: 2 views each hip and AP pelvis COMPARISON: 07/06/2021 FINDINGS: Fracture, dislocation or subluxation is not identified. Pelvic rings are intact. There are mild degenerative changes of the hips. The soft tissues appear within normal limits. No foreign bodi es are identified. IMPRESSION: 1: NO ACUTE BONE OR JOINT ABNORMALITY IDENTIFIED. Reviewed, dictated and finalized at location A.
--- NOTE | 2021-09-03 11:05 | ED.GENADULT ---
HPI - General Adult General Chief complaint: Extremity Injury, Lower <JEAN PAUL Mccoy BC - Last Filed: 09/03/21 15:41> Stated complaint: pain that is worse <JEAN PAUL Mccoy BC - Last Filed: 09/03/21 15:41> Time Seen by Provider: 09/03/21 10:22 <JEAN PAUL Mccoy BC - Last Filed: 09/03/21 15:41> Source: patient <JEAN PAUL Mccoy BC - Last Filed: 09/03/21 15:41> Mode of arrival: EMS <JEAN PAUL Mccoy BC - Last Filed: 09/03/21 15:41> Limitations: no limitations <JEAN PAUL Mccoy BC - Last Filed: 09/03/21 15:41> History of Present Illness HPI narrative: Patient presents for evaluation of left hip pain since yesterday. She contacted EMS due to severity of her pain. She cannot identify any injury or event that caused her pain. She was sitting in a chair at the time of symptom onset and pain progressively worsened since then. She states the pain is throbbing, 10 out of 10 in severity, without radicular component. No saddle anesthesia. No bladder/bowel incontinence. She was admitted here in July of she was having low back pain. Prior to the time of her admission she had an x-ray of her lumbar spine that showed level scoliosis with DDD. She was treated with vicodin. Pain persisted. She had a CT here that showed compression deformity at T12. She was evaluated by PT and OT. She returned after her time of discharge with continued pain. She was discharged from the emergency department after that evaluation with an increase in her pain medication. She states that her vocational psychologist told her that her T12 compression fracture was likely secondary to prednisone use for temporal arteritis. No additional complaints or concerns. <JEAN PAUL Mccoy BC - Last Filed: 09/03/21 15:41> Related Data Home medications: Home Medications Medication Instructions Recorded Confirmed aspirin 81 mg tablet,delayed 81 mg PO DAILY 11/26/19 09/03/21 release [place] 3 Fish Oil 100 mg PO DAILY 07/09/21 09/03/21 calcium carbonate-vitamin D3 1 tablet PO DAILY 07/09/21 09/03/21 [Calcium with Vitamin D] Alia Ellipta 1 inh INHALATION DAILY 07/10/21 09/03/21 acebutolol 200 mg PO DAILY 07/10/21 09/03/21 indapamide 1.25 mg PO DAILY 07/10/21 09/03/21 allopurinol 100 mg PO DAILY 09/03/21 09/03/21 atorvastatin 10 mg PO DAILY 09/03/21 09/03/21 docusate sodium 100 mg PO DAILY 09/03/21 09/03/21 flecainide 100 mg PO Q12H 09/03/21 09/03/21 leflunomide 20 mg PO DAILY 09/03/21 09/03/21 levothyroxine [Synthroid] 75 mcg PO DAILY 09/03/21 09/03/21 oxycodone-acetaminophen [Percocet] 1 tablet PO Q6H PRN 09/03/21 09/03/21 prednisone 12.5 mg PO DAILY 09/03/21 09/03/21 <JEAN PAUL Mccoy BC - Last Filed: 09/03/21 15:41> Allergies/adverse reactions: Allergies Allergy/AdvReac Type Severity Reaction Status Date / Time No Known Allergies Allergy Unknown Verified 09/03/21 18:48 <JEAN PAUL Mccoy BC - Last Filed: 09/03/21 15:41> Review of Systems Review of Systems: CONSTITUTIONAL: Denies fever, chills, or sweats. EYES: Denies visual changes, redness, or discharge. ENT: Denies rhinorrhea, congestion, sore throat, or otalgia. CARDIOVASCULAR: Denies chest pain, palpitations, or edema. RESPIRATORY: Denies cough or dyspnea. GASTROINTESTINAL: Denies abdominal pain, nausea, vomiting, or diarrhea. GENITOURINARY: Denies dysuria or hematuria. SKIN: Denies rash or itching. MUSCULOSKELETAL: Reports low back pain and bilateral hip pain NEUROLOGIC: Denies headache, numbness, dizziness, or weakness. PSYCHIATRIC: Denies anxiety or depression. <JEAN PAUL Mccoy BC - Last Filed: 09/03/21 15:41> PMFSH Past Medical History Medical History: Medical History (Updated 09/03/21 @ 22:59 by Radha Mack PA-C) Essential (primary) hypertension Gastroesophageal reflux disease Gout High cholesterol Hypothyroidism Obstructive sleep apnea on CPAP Paroxysmal atr
[2021-09-03] MEDS: ONDANSETRON INJ 4 MG/2 ML VIAL IV PUSH (11:18)
[2021-09-03] MEDS: MORPHINE SULFATE (*CRX) 2 MG/ML INJ IV PUSH (11:18)
[2021-09-03 12:15] LABS: Basophils Absolute Auto 0.1 K/mm3 (0.0-0.1); Basophils Percent Auto 0.5 % (0.2-1.2); Eosinophils Absolute Auto 0.1 K/mm3 (0-0.3); Eosinophils Percent Auto 0.5 % (0-4.4); Hematocrit 41.5 % (37.0-47.0); Hemoglobin 14.2 g/dL (12.0-15.0); Immature Granulocyte Absolute 0.64 K/mm3 (0.00-0.031); Immature Granulocyte Percent A 5.8 % (0-0.5); Lymphocytes Absolute Auto 1.92 K/mm3 (0.9-3.2); Lymphocytes Percent Auto 17.5 % (18.3-44.2); Mean Corpuscular HGB Conc 34.2 g/dl (32-36); Mean Corpuscular Hemoglobin 33.8 pg (26-34); Mean Corpuscular Volume 98.8 fl (80-100); Mean Platelet Volume 10.1 fl (7.4-10.4); Monocytes Absolute Auto 2.7 K/mm3 (0.1-0.6); Monocytes Percent Auto 24.6 % (2.6-8.5); Neutrophils Absolute Auto 5.6 K/mm3 (1.3-6.7); Neutrophils Percent Auto 51.1 % (45.5-73.1); Platelet Count Result 111 k/mm3 (150-375); Red Cell Distribution Width 14.1 % (11.5-14.5)
[2021-09-03 12:24] LABS: Prothrombin Time 12.8 Seconds (11.1-14.7)
[2021-09-03 12:25] LABS: Partial Thromboplastin Time 24.8 SECONDS (22.3-36.8)
[2021-09-03 12:26] LABS: Alanine Aminotransferase 16 U/L (4-35); Albumin Level 3.9 g/dL (3.5-5.1); Alkaline Phosphatase 107 U/L (38-126); Anion Gap 4 mmol/L (8-16); Aspartate Amino Transferase 26 U/L (14-36); Bilirubin,Total 1.4 mg/dL (0.2-1.3); Blood Urea Nitrogen 16 mg/dL (7-17); Calcium 8.9 mg/dL (8.4-10.2); Carbon Dioxide 32 mmol/L (22-30); Chloride 101 mmol/L (98-107); Estimated CRCL calculation 55 ml/min; Estimated Glomerular Filt Rate > 60; Glucose 81 mg/dL (65-110); Sodium 137 mmol/L (137-145)
[2021-09-03] MEDS: oxyCODONE/ACETAMINOPHEN (*CRX) 5-325 MG TABLET 1 TABLET PO (12:33)
[2021-09-03] MEDS: POTASSIUM CHLORIDE 20 MEQ TABLET 40 MEQ PO (13:38)
--- NOTE | 2021-09-03 14:36 | PCCCNOTE ---
Spoke with Ruthie at [facility] regarding possible transfer there today from the ED. Appears there is bed availability and Coordinator at [facility] will evaluate whether patient can be accepted. Clinicals faxed over. Updated Mauro in the ED
[2021-09-03 15:06] LABS: EDCOVIDSCREEN Negative (Negative)
[2021-09-03] MEDS: diazePAM (*CRX) 5 MG TABLET PO (15:41)
--- NOTE | 2021-09-03 16:13 | PCCCNOTE ---
Patient unable to pay $334 x30 day cost of [employer] and is unable to ambulate due to pain. Please update [employer] with patient's progress and potential for long-term care insurance coverage (patient does not have policy information with her but will attempt to have her son obtain the information when he arrives from [place])
--- NOTE | 2021-09-03 17:40 | ADMGEN ---
This patient, Nidia Lang, was admitted to Medical Room 252-. Patient/family oriented to hospital policies and general routines including ID bracelet, bed and alarms, visiting hours, pain management, procedures, bathroom and other care routines, personal items, smoking policy, room service/diet, and visiting hours. Information on how to activate the Rapid Response Team has been discussed. Patient/Family are encouraged to report perceived risks to care and to ask questions if they do not understand what they are told or what they should do.
--- NOTE | 2021-09-03 17:45 | PM.IMHP ---
H&P: HPI History of Present Illness Date/Time: 09/03/21 17:45 Chief Complaint: Back and left hip pain. Narrative: This is an 81-year-old female with COPD, paroxysmal atrial fibrillation, sleep apnea, hypertension, hypothyroidism, temporal arteritis, and dyslipidemia who presented to the emergency department earlier today via EMS from home for evaluation of back and left hip pain. She has been having ongoing issues with chronic back pain for the past 4 to 5 months, to the point where she is now having to see pain management. Per patient report, she had a thoracic burst fracture which has been causing most of her pain, and her dress operator attributes it to her long-term steroid use. She takes oxycodone at home which does help somewhat however last Saturday she received a steroid injection which helped her pain for only a few days. In any regard, yesterday she began experiencing worsening, diffuse low back pain radiating to the left hip that she describes as constant and throbbing though will become sharp with movement.. Her pain medications have not provided her with any relief whatsoever and due to such severe pain she came in today for evaluation where she was found to have a new L1 compression fracture. Due to difficulties controlling her pain and inability to care for herself at home at this time (she lives alone and cannot currently move without pain) she is being admitted. She has not had any falls or injury. No saddle anesthesia, numbness, bowel, or bladder incontinence. She has not had fever, chills, or sweats. Review of Systems Review of Systems: Twelve systems were reviewed with pertinent positives and negatives as per HPI. No fever, chills, or sweats. No recent cold or flu symptoms. Diagnosed with temporal arteritis in January 2020 and she has been on long-term steroids since that time. When they try to wean her steroids her headaches come back, unfortunately. No nausea, vomiting, or diarrhea. She denies dysuria. Except as documented, all other systems were reviewed and are negative. [facility] Past Medical History Medical History (Updated 09/03/21 @ 22:59 by Radha Mack PA-C) Essential (primary) hypertension Gastroesophageal reflux disease Gout High cholesterol Hypothyroidism Obstructive sleep apnea on CPAP Paroxysmal atrial fibrillation Primary osteoarthritis of left knee Strabismus T12 compression fracture Temporal arteritis Surgical History Surgical History (Updated 09/03/21 @ 22:47 by Radha Mack PA-C) History of arthroscopy of right knee (2019) History of cataract extraction History of thyroidectomy History of tonsillectomy History of tubal ligation Family History Family History Father Acute myocardial infarction Family history of cardiovascular disease Family history of sudden , Onset Age: 46 Family history of elevated blood lipids Family history of coronary artery disease Grandparent Diabetes mellitus Family history of coronary artery disease Family history of malignant neoplasm of breast in first degree relative Mother Family history of glaucoma Hypertension Family history of elevated blood lipids Sibling Hypertension Social History Social History (Updated 09/03/21 @ 22:47 by Radha Mack PA-C) Social History: Surrogate decision maker: Chris Lang, son. Code status: Full code. 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 Meds Home Medications and Allergies Home Medications Medication Instructions Recorded Confirmed Type aspirin 81 mg tablet,delayed 81 mg PO DAILY 11/26/19 09/03/21 History release [place] 3 Fish Oil 100 mg PO DAILY 07/09/21 09/03/21 History calcium carbonate-vitamin D3 1 tablet P
[2021-09-03] MEDS: HYDROmorphone HCL INJ (*CRX) 1 MG/ML SYR 0.5 MG IV PUSH (18:23)
[2021-09-03] MEDS: MORPHINE SULFATE (*CRX) 4 MG/ML INJ IV PUSH (21:45)
[2021-09-04] VITALS (8 sets, daily range): BP systolic 117–143; BP diastolic 51–60; PULSE 80–102; RESP 12–20; TEMP 36.3–36.7; O2SAT 94–99; BMI 35.6
[2021-09-04] MEDS: DOCUSATE SODIUM 100 MG CAPSULE PO ×2 (00:19→08:50)
[2021-09-04] MEDS: FLECAINIDE ACETATE 100 MG TABLET PO ×3 (00:19→20:53)
[2021-09-04] MEDS: HYDROcodone/acetaminophen (*CRX) 10-325 MG TABLET 1 TAB PO ×4 (00:20→22:03)
[2021-09-04] MEDS: MORPHINE SULFATE (*CRX) 4 MG/ML INJ IV PUSH (04:16)
[2021-09-04 05:50] LABS: Basophils Absolute Auto 0.1 K/mm3 (0.0-0.1); Basophils Percent Auto 0.6 % (0.2-1.2); Hematocrit 41.4 % (37.0-47.0); Hemoglobin 14.1 g/dL (12.0-15.0); Immature Granulocyte Absolute 0.59 K/mm3 (0.00-0.031); Immature Granulocyte Percent A 7.2 % (0-0.5); Lymphocytes Absolute Auto 1.58 K/mm3 (0.9-3.2); Lymphocytes Percent Auto 19.3 % (18.3-44.2); Mean Corpuscular HGB Conc 34.1 g/dl (32-36); Mean Corpuscular Hemoglobin 33.7 pg (26-34); Mean Corpuscular Volume 98.8 fl (80-100); Mean Platelet Volume 9.9 fl (7.4-10.4); Monocytes Absolute Auto 2.6 K/mm3 (0.1-0.6); Monocytes Percent Auto 31.5 % (2.6-8.5); Neutrophils Absolute Auto 3.4 K/mm3 (1.3-6.7); Neutrophils Percent Auto 41.4 % (45.5-73.1); Platelet Count Result 106 k/mm3 (150-375); Red Blood Count 4.19 M/mm3 (4.2-5.4); Red Cell Distribution Width 14.2 % (11.5-14.5); White Blood Count 8.2 K/mm3 (4.5-10.0)
[2021-09-04 06:04] LABS: Anion Gap 2 mmol/L (8-16); Blood Urea Nitrogen 14 mg/dL (7-17); Calcium 9.1 mg/dL (8.4-10.2); Carbon Dioxide 31 mmol/L (22-30); Chloride 102 mmol/L (98-107); Estimated CRCL calculation 55 ml/min; Estimated Glomerular Filt Rate > 60; Glucose 76 mg/dL (65-110); Magnesium 1.9 mg/dL (1.6-2.3); Potassium 3.8 mmol/L (3.4-5.0); Sodium 135 mmol/L (137-145)
[2021-09-04] MEDS: LEVOTHYROXINE SODIUM 75 MCG TABLET PO (06:14)
[2021-09-04 07:41] LABS: Add Urine Microscopic? YES; Appearance Urine Clear (Clear); Bilirubin Urine Negative (Negative); Blood Urine Negative (Negative); Color Urine Yellow (Yellow); Glucose Urine UA Negative (Negative); Ketones Urine Trace mg/dL (Negative); Leukocyte Esterase Ur Trace LEU/UL (Negative); Mucus Urine Rare /lpf; Nitrate Urine Negative (Negative); Protein Urine Negative (Negative); Specific Grav Ur 1.019 (1.001-1.035); Squamous Epithelial Cell Urine Few /hpf (Few); Urobilinogen Urine Negative mg/dL (<2.0)
--- NOTE | 2021-09-04 07:57 | PCOTNOTE ---
Attempted OT evaluation, per RN wait for determining if patient needs a back brace. Will follow and attempt at later time.
[2021-09-04] MEDS: FLUTICASONE/UMECLIDIN/VILANTER 100-62.5-25 MCG ELLIPTA 1 PUFF INHALATION (08:29)
[2021-09-04] MEDS: allopurinoL 100 MG TABLET PO (08:49)
[2021-09-04] MEDS: predniSONE 10 MG TABLET PO (08:49)
[2021-09-04] MEDS: ACEBUTOLOL HCL 200 MG CAPSULE PO (08:50)
[2021-09-04] MEDS: ASPIRIN 81 MG ENTERIC TABLET PO (08:50)
[2021-09-04] MEDS: ATORVASTATIN 10 MG TABLET PO (08:50)
[2021-09-04] MEDS: INDAPAMIDE 1.25 MG TABLET PO (08:51)
[2021-09-04] MEDS: LEFLUNOMIDE 20 MG TABLET PO (08:51)
[2021-09-04] MEDS: LIDOCAINE 5% PATCH 1 PATCH TRANSDERM (08:52)
--- NOTE | 2021-09-04 10:50 | PCOTNOTE ---
Attempted OT evaluation, per RN back brace is ordered but has not arrived yet, will follow and attempt when back brace is received.
--- NOTE | 2021-09-04 11:00 | PM.IMPN ---
Progress Note: A&P Assessment and Plan (1) Closed compression fracture of L1 vertebra: Qualifiers: Encounter type: initial encounter Qualified Code(s): S32.010A - Wedge compression fracture of first lumbar vertebra, initial encounter for closed fracture Code(s): S32.010A - Wedge compression fracture of first lumbar vertebra, initial encounter for closed fracture Status: Acute Assessment and Plan: Presented with back pain radiating to bilateral hips that she rates as 8/10. CT abdomen/pelvis showed new L1 compression fracture with approximately 25% loss of vertebral body height MRI performed on 08/03/21 reviewed, shows acute L1 burst fracture Appreciate orthopedic surgery evaluation TLSO brace ordered Supportive care to include ice, heat, lidocaine patch, analgesics as needed Appreciate PT/OT evals. She has requested rehab placement Will evaluate vitamin-D levels and supplement as needed. She will need DEXA scan as an outpatient. She is at high risk for fractures given chronic steroid use (2) T12 compression fracture: Code(s): S22.080A - Wedge compression fracture of T11-T12 vertebra, initial encounter for closed fracture Status: Acute Assessment and Plan: Onset June 2021 She has been followed by pain management Had steroid injection on 08/28/2021 (3) Intractable pain: Code(s): R52 - Pain, unspecified Status: Acute Assessment and Plan: Plan as above (4) Hypokalemia: Code(s): E87.6 - Hypokalemia Status: Acute Assessment and Plan: Potassium low on presentation and was supplemented Potassium 3.8 today Continue to monitor BMP (5) Paroxysmal atrial fibrillation: Code(s): I48.0 - Paroxysmal atrial fibrillation Status: Acute Assessment and Plan: Rate is controlled at this time. Established with Cardiology at [facility] Continue flecainide Not on chronic anticoagulation as she reports only 1 episode of atrial fibrillation in the past (6) Obstructive sleep apnea on CPAP: Code(s): G47.33 - Obstructive sleep apnea (adult) (pediatric); Z99.89 - Dependence on other enabling machines and devices Status: Acute Assessment and Plan: Continue CPAP during hospitalization (7) Temporal arteritis: Code(s): M31.6 - Other giant cell arteritis Status: Chronic Assessment and Plan: Onset over 1 year ago Managed by Rheumatology on immunosuppressive therapy Continue prednisone daily Continue leflunomide She reports her cad operator suspects chronic steroid use to be the cause of her compression fractures Subjective Date/time seen: 09/04/21 11:00 Interval history: Date of service: 09/04/2021 Nidia Lang is an 81-year-old female with a history of hypertension, hypothyroidism, MEGAN, paroxysmal atrial fibrillation not on chronic anticoagulation, history of T12 compression fracture followed by pain management and maintained with steroid injections, and history of temporal arteritis on immunosuppresive therapy who is seen in follow up for L1 compression fracture. She has steroid injection 1 week ago on 08/28/2021 per her pain management provider that gave her some pain relief for 2-3 days and since then developed worsened low back pain that started in the right lower back and then spread across the bilateral hips. She denies numbness or tingling of her lower extremities but reports that her right leg feels a bit funny. She denies pain in the buttocks or the back of the legs. Denies loss of bowel or bladder control, though notes 2 days ago, she was incontinent symptoms because she could not get up to use the restroom due to her pain. Denies saddle anesthesia. She rates her back pain as 8/10. She denies nausea or vomiting but does know a decreased appetite. Her last bowel movement was 3 days ago. She denies any urinary symptoms. Denies shortness breath, cough, chest pain,
--- NOTE | 2021-09-04 13:14 | PM.CNOR ---
Assessment and Plan Assessment and plan (1) Closed compression fracture of L1 vertebra: Qualifiers: Encounter type: initial encounter Qualified Code(s): S32.010A - Wedge compression fracture of first lumbar vertebra, initial encounter for closed fracture Code(s): S32.010A - Wedge compression fracture of first lumbar vertebra, initial encounter for closed fracture Status: Acute Assessment and Plan: History, exam, radiographs, CT scan and lumbar spine MRI reviewed. Lumbar spine MRI from August revealed an acute L1 burst fracture which was new from CT scan in July of 2021. CT scan July of 2021 revealed a mild compression fracture of T12. CT scan performed during this hospitalization revealed an L1 compression fracture with approximately 25% loss of vertebral body height. Patient is being followed by pain management and underwent injection 1 week ago per patient report. There is previous discussion regarding a vertebroplasty. Patient was deemed not to be a candidate per patient report. Records requested from [facility] in [facility] for further evaluation review. Patient does have a lumbar corset brace which she received from pain management per patient report an explanation. She reports mild relief of pain today. She can be weight-bearing as tolerated. Recommended family to bring her lumbar corset brace for mobilization with physical therapy. Pain control. Ice or heat as patient tolerates. no surgical intervention planned at this time. Will continue to monitor. History of Present Illness HPI Consult date: 09/04/21 Consult reason: fracture (L1 Burst Fracture ) Chief complaint: L1 fracture/intractable pain Narrative: 81-year-old female admitted with acute lumbar spine pain. History, exam and imaging reviewed with the patient. She reports having been seen by the [facility] in [facility] last week. She underwent a cortisone injection in her lumbar spine due to an L1 compression fracture which was found on lumbar spine MRI on August 03. Patient reports that she had previously discussed both surgical and conservative treatment options with the pain management physician. It was determined that she would not be a successful candidate for what sounds to be vertebroplasty. There was a decision made to proceed with cortisone injection. Injection was performed last week per the patient report and she noticed an increase in pain status post injection. This prompted her Rival to the emergency room. A CT scan was obtained which revealed an acute L1 burst fracture. Upon further review, L1 burst fracture was present on MRI seen on 08/03. Today, patient reports that she is starting to have some relief of pain. She reports that she does have a lumbar corset brace at home. She has not been wearing that. Review of Systems Constitutional: Constitutional: Reports no additional constitutional complaints, Denies excessive sweating, Denies fever(s) and Denies weight gain Eyes: Eyes: Reports no additional eye complaints and Denies change in vision ENT: Reports system reviewed and no additional complaints, except as documented and Reports Normal hearing present Cardiovascular: Cardiovascular: Denies chest pain, Denies diaphoresis, Denies leg ulcers and Denies dyspnea on exertion Respiratory: Respiratory: Reports no additional respiratory complaints, Denies cough and Denies dyspnea on exertion Gastrointestinal: Gastrointestinal: Reports no additional gastrointestinal complaints, Denies abdominal pain, Denies constipation, Denies nausea and Denies vomiting Genitourinary: Genitourinary: Denies hematuria and Denies urinary frequency Musculoskeletal: Musculoskeletal: Reports no additional musculoskeletal complaints and Reports as per HPI Neurologic: Reports Normal hearing present Endocrine: Endocrine: Reports no additional endocrine complaints, Denies change in body appea
--- NOTE | 2021-09-04 17:28 | PC.NURSE ---
plate hanger here to fir brace
[2021-09-05] VITALS (10 sets, daily range): BP systolic 117–150; BP diastolic 59–83; PULSE 77–92; RESP 14–20; TEMP 36–36.7; O2SAT 92–96
[2021-09-05] MEDS: HYDROcodone/acetaminophen (*CRX) 10-325 MG TABLET 1 TAB PO ×2 (04:46→12:33)
[2021-09-05] MEDS: LEVOTHYROXINE SODIUM 75 MCG TABLET PO (06:16)
[2021-09-05 06:21] LABS: Hematocrit 40.6 % (37.0-47.0); Hemoglobin 13.6 g/dL (12.0-15.0); Mean Corpuscular HGB Conc 33.5 g/dl (32-36); Mean Corpuscular Hemoglobin 33.6 pg (26-34); Mean Corpuscular Volume 100.2 fl (80-100); Mean Platelet Volume 10.6 fl (7.4-10.4); Platelet Count Result 97 k/mm3 (150-375); Red Blood Count 4.05 M/mm3 (4.2-5.4); Red Cell Distribution Width 14.2 % (11.5-14.5); White Blood Count 6.9 K/mm3 (4.5-10.0)
[2021-09-05 06:33] LABS: Anion Gap 5 mmol/L (8-16); Blood Urea Nitrogen 12 mg/dL (7-17); Calcium 9.2 mg/dL (8.4-10.2); Carbon Dioxide 31 mmol/L (22-30); Chloride 102 mmol/L (98-107); Estimated CRCL calculation 56 ml/min; Estimated Glomerular Filt Rate > 60; Glucose 91 mg/dL (65-110); Potassium 3.3 mmol/L (3.4-5.0); Sodium 138 mmol/L (137-145)
[2021-09-05] MEDS: oxyCODONE/ACETAMINOPHEN (*CRX) 5-325 MG TABLET 1 TABLET PO (06:59)
[2021-09-05 08:13] LABS: Vitamin D 25 Hydroxy 18.9 ng/mL
[2021-09-05] MEDS: LIDOCAINE 5% PATCH 1 PATCH TRANSDERM (08:55)
[2021-09-05] MEDS: DOCUSATE SODIUM 100 MG CAPSULE PO (08:57)
[2021-09-05] MEDS: LEFLUNOMIDE 20 MG TABLET PO (08:58)
[2021-09-05] MEDS: ACEBUTOLOL HCL 200 MG CAPSULE PO (08:58)
[2021-09-05] MEDS: allopurinoL 100 MG TABLET PO (08:58)
[2021-09-05] MEDS: FLECAINIDE ACETATE 100 MG TABLET PO ×2 (08:58→21:07)
[2021-09-05] MEDS: INDAPAMIDE 1.25 MG TABLET PO (08:58)
[2021-09-05] MEDS: ATORVASTATIN 10 MG TABLET PO (08:58)
[2021-09-05] MEDS: ASPIRIN 81 MG ENTERIC TABLET PO (08:58)
[2021-09-05] MEDS: predniSONE 10 MG TABLET PO (08:58)
[2021-09-05] MEDS: FLUTICASONE/UMECLIDIN/VILANTER 100-62.5-25 MCG ELLIPTA 1 PUFF INHALATION (09:14)
[2021-09-05] MEDS: MORPHINE SULFATE (*CRX) 2 MG/ML INJ 1 MG IV PUSH ×2 (09:54→17:13)
--- NOTE | 2021-09-05 10:01 | PM.PNORT ---
Progress Note: A&P Assessment and Plan (1) Closed compression fracture of L1 vertebra: Qualifiers: Encounter type: initial encounter Qualified Code(s): S32.010A - Wedge compression fracture of first lumbar vertebra, initial encounter for closed fracture <JEAN PAUL Brady - Last Filed: 09/05/21 10:25> Code(s): S32.010A - Wedge compression fracture of first lumbar vertebra, initial encounter for closed fracture <JEAN PAUL Brady - Last Filed: 09/05/21 10:25> Status: Acute <JEAN PAUL Brady - Last Filed: 09/05/21 10:25> Assessment and Plan: As previously indicated, lumbar spine MRI from August revealed an acute L1 burst fracture which is new from a CT scan noted in July 2021. CT scan on this admission also shows an L1 compression fracture with approximately 25% loss of vertebral body height. Patient has been being followed by Dr. Chao at [facility] in [place], [place]. Patient underwent a an injection of her lumbar spine last week. Awaiting records to be faxed from this office for confirmation of procedures and recent treatment history. She has previously discussed vertebroplasty however was not felt to be a candidate and wanted to proceed with conservative treatment. Patient does have a lumbar corset brace at home. She has 1 at the bedside as well. Patient did get out of the bed to the chair today with her corset brace on. She reports being unable to tolerate out of the chair due to pain. Her pain has worsened from yesterday. She felt her pain was tolerable yesterday. Will initiate scheduled ibuprofen. Discussed with hospitalist service who agrees with plan of care. Continue pain control. Heat pack to be obtained for lumbar spine pain. Lidocaine patches as well. Patient to utilize lumbar corset when out of bed. PT and OT as tolerated. Upon discharge, patient will follow up with Dr. Chao's office. <Lisa GonzalezJEAN PAUL anguiano - Last Filed: 09/05/21 10:25> Additional Plan Imaging, assessment and plan reviewed with attending MD, Dr. Love. No further recommendations at this time. <Lisa ManSharri CarlosJEAN PAUL anguiano - Last Filed: 09/05/21 10:25> Record, diagnostics and orthopedic consultation reviewed. Chronic T12 compression fracture and subacute L1 compression fracture. Apparently not a candidate for vertebroplasty. Currently under care of pain management. Agree with orthopedic consultation and recommendations. Will continue to follow. <Gino Love MD - Last Filed: 09/05/21 11:44> Subjective Subjective Date/Time Seen: 09/05/21 10:01 <JEAN PAUL Brady - Last Filed: 09/05/21 10:25> Interval history: Patient reports increasing lumbar spine pain today. She feels her pain was well controlled yesterday however she has increased pain today. She attempted to get out of the bed to the chair with her lumbar corset brace and was unable to tolerate sitting up in the chair for very long. She is now back in bed and her pain has slightly improved. Overall, no new concerns today aside from increased pain. <JEAN PAUL Brady - Last Filed: 09/05/21 10:25> Review of Systems Constitutional: Constitutional: Reports no additional constitutional complaints, Denies excessive sweating, Denies fever(s) and Denies weight gain <JEAN PAUL Brady - Last Filed: 09/05/21 10:25> Eyes: Eyes: Reports no additional eye complaints and Denies change in vision <JEAN PAUL Brady - Last Filed: 09/05/21 10:25> ENT: Reports system reviewed and no additional complaints, except as documented and Reports Normal hearing present <JEAN PAUL Brady - Last Filed: 09/05/21 10:25> Cardiovascular: Cardiovascular: Denies chest pain, Denies diaphoresis, Denies leg ulcers and Denies dyspnea on exertion <JEAN PAUL Brady - Last Filed: 09/05/21 10:25> Respiratory: Respiratory: Reports no additional respiratory complaints, Denies cough and Denies dyspnea on exertio
[2021-09-05] MEDS: PANTOPRAZOLE 40 MG TABLET PO (12:29)
[2021-09-05] MEDS: IBUPROFEN 600 MG TABLET PO ×2 (12:29→17:08)
[2021-09-05] MEDS: POTASSIUM CHLORIDE 20 MEQ TABLET PO (12:29)
--- NOTE | 2021-09-05 16:02 | PM.IMPN ---
Progress Note: A&P Assessment and Plan (1) Closed compression fracture of L1 vertebra: Qualifiers: Encounter type: initial encounter Qualified Code(s): S32.010A - Wedge compression fracture of first lumbar vertebra, initial encounter for closed fracture Code(s): S32.010A - Wedge compression fracture of first lumbar vertebra, initial encounter for closed fracture Status: Acute Assessment and Plan: Presented with back pain radiating to bilateral hips that she rates as 8/10. CT abdomen/pelvis showed L1 compression fracture with approximately 25% loss of vertebral body height, also evident on MRI performed on 08/03/2021. Appreciate orthopedic surgery evaluation Continue TLSO brace Supportive care to include ice, heat, lidocaine patch, analgesics as needed Appreciate PT/OT evals. She has requested rehab placement She will need DEXA scan as an outpatient. She is at high risk for fractures given chronic steroid use. Will begin vitamin-D supplementation. (2) T12 compression fracture: Code(s): S22.080A - Wedge compression fracture of T11-T12 vertebra, initial encounter for closed fracture Status: Acute Assessment and Plan: Onset June 2021 She has been followed by pain management Had steroid injection on 08/28/2021 Pain management records have been requested (3) Intractable pain: Code(s): R52 - Pain, unspecified Status: Acute Assessment and Plan: Plan as above (4) Hypokalemia: Code(s): E87.6 - Hypokalemia Status: Acute Assessment and Plan: Potassium 3.3 today, likely related to poor p.o. intake Supplement of 20 mEq p.o. KCl Continue to monitor BMP (5) Paroxysmal atrial fibrillation: Code(s): I48.0 - Paroxysmal atrial fibrillation Status: Acute Assessment and Plan: Rate is controlled at this time. Established with Cardiology at [facility] Continue flecainide Not on chronic anticoagulation as she reports only 1 episode of atrial fibrillation in the past (6) Obstructive sleep apnea on CPAP: Code(s): G47.33 - Obstructive sleep apnea (adult) (pediatric); Z99.89 - Dependence on other enabling machines and devices Status: Acute Assessment and Plan: Continue CPAP during hospitalization (7) Temporal arteritis: Code(s): M31.6 - Other giant cell arteritis Status: Chronic Assessment and Plan: Onset over 1 year ago Managed by Rheumatology on immunosuppressive therapy Continue prednisone daily Continue leflunomide 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 She is doing better at this time. This morning she was having uncontrolled pain but she notes improvement this afternoon. She still complains of 6/10 pain that starts in her left hip in spreads across her low back. Denies numbness or tingling of lower extremities. Denies saddle anesthesia. She was able to get up today and walk to the bathroom, but noted this did cause her increased pain. She has been wearing her brace but does not like wearing this as it is uncomfortable. She reports her appetite has been lower. She denies abdominal pain, nausea, vomiting, fevers, or chills. Her last bowel movement was 4 days ago. She denies any urinary symptoms and has been using the bedpan without difficulty. Review of Systems Review of Systems: All systems reviewed & are unremarkable except as
[2021-09-06] VITALS (13 sets, daily range): BP systolic 120–145; BP diastolic 54–78; PULSE 72–101; RESP 18–22; TEMP 36–36.5; O2SAT 94–97
[2021-09-06] MEDS: IBUPROFEN 600 MG TABLET PO ×4 (00:07→23:47)
[2021-09-06 05:39] LABS: Hematocrit 38.7 % (37.0-47.0); Mean Corpuscular HGB Conc 33.6 g/dl (32-36); Mean Corpuscular Hemoglobin 33.6 pg (26-34); Mean Platelet Volume 10.5 fl (7.4-10.4); Platelet Count Result 94 k/mm3 (150-375); Red Blood Count 3.87 M/mm3 (4.2-5.4); White Blood Count 8.2 K/mm3 (4.5-10.0)
[2021-09-06 05:53] LABS: Anion Gap 4 mmol/L (8-16); Blood Urea Nitrogen 15 mg/dL (7-17); Calcium 9.1 mg/dL (8.4-10.2); Carbon Dioxide 31 mmol/L (22-30); Chloride 103 mmol/L (98-107); Estimated CRCL calculation 50 ml/min; Estimated Glomerular Filt Rate > 60; Glucose 91 mg/dL (65-110); Magnesium 1.9 mg/dL (1.6-2.3); Potassium 3.5 mmol/L (3.4-5.0); Sodium 138 mmol/L (137-145)
[2021-09-06] MEDS: LEVOTHYROXINE SODIUM 75 MCG TABLET PO (06:14)
[2021-09-06] MEDS: FLUTICASONE/UMECLIDIN/VILANTER 100-62.5-25 MCG ELLIPTA 1 PUFF INHALATION (07:47)
[2021-09-06] MEDS: HYDROcodone/acetaminophen (*CRX) 10-325 MG TABLET 1 TAB PO ×3 (07:52→21:02)
[2021-09-06] MEDS: allopurinoL 100 MG TABLET PO (07:53)
[2021-09-06] MEDS: predniSONE 10 MG TABLET PO (07:53)
[2021-09-06] MEDS: ACEBUTOLOL HCL 200 MG CAPSULE PO (07:53)
[2021-09-06] MEDS: predniSONE 2.5 MG TABLET PO (07:53)
[2021-09-06] MEDS: ASPIRIN 81 MG ENTERIC TABLET PO (07:54)
[2021-09-06] MEDS: CHOLECALCIFEROL 1,000 UNITS TABLET 1000 UNITS PO (07:54)
[2021-09-06] MEDS: DOCUSATE SODIUM 100 MG CAPSULE PO (07:54)
[2021-09-06] MEDS: ATORVASTATIN 10 MG TABLET PO (07:54)
[2021-09-06] MEDS: PANTOPRAZOLE 40 MG TABLET PO (07:55)
[2021-09-06] MEDS: FLECAINIDE ACETATE 100 MG TABLET PO ×2 (07:55→20:46)
[2021-09-06] MEDS: LEFLUNOMIDE 20 MG TABLET PO (07:55)
[2021-09-06] MEDS: LIDOCAINE 5% PATCH 1 PATCH TRANSDERM (07:55)
[2021-09-06] MEDS: INDAPAMIDE 1.25 MG TABLET PO (07:55)
[2021-09-06] MEDS: ENOXAPARIN 40 MG/0.4 ML SYRINGE SUB-Q (07:55)
--- NOTE | 2021-09-06 07:59 | PM.PNORT ---
Progress Note: A&P Assessment and Plan (1) Closed compression fracture of L1 vertebra: Qualifiers: Encounter type: initial encounter Qualified Code(s): S32.010A - Wedge compression fracture of first lumbar vertebra, initial encounter for closed fracture Code(s): S32.010A - Wedge compression fracture of first lumbar vertebra, initial encounter for closed fracture Status: Acute Assessment and Plan: Lumbar spine MRI from August revealed an acute L1 burst fracture which is new from a CT scan noted in July 2021. CT scan on this admission also shows an L1 compression fracture with approximately 25% loss of vertebral body height. Continue pain control. Heat pack to be obtained for lumbar spine pain. Lidocaine patches as well. Patient to utilize lumbar corset when out of bed. PT and OT as tolerated. Okay for discharge to rehab/skilled nursing when cleared. Upon discharge, patient will follow up with Dr. Chao's office. Subjective Subjective Date/Time Seen: 09/06/21 07:59 Principal diagnosis: L1 compression fracture Interval history: patient awake and alert this morning. Complains of low back pain. Difficulty mobilizing. Plan for rehab/skilled nursing. Review of Systems Constitutional: Constitutional: Reports no additional constitutional complaints, Denies excessive sweating, Denies fever(s) and Denies weight gain Eyes: Eyes: Reports no additional eye complaints and Denies change in vision ENT: Reports system reviewed and no additional complaints, except as documented and Reports Normal hearing present Cardiovascular: Cardiovascular: Denies chest pain, Denies diaphoresis, Denies leg ulcers and Denies dyspnea on exertion Respiratory: Respiratory: Reports no additional respiratory complaints, Denies cough and Denies dyspnea on exertion Gastrointestinal: Gastrointestinal: Reports no additional gastrointestinal complaints, Denies abdominal pain, Denies constipation, Denies nausea and Denies vomiting Genitourinary: Genitourinary: Denies hematuria and Denies urinary frequency Musculoskeletal: Musculoskeletal: Reports no additional musculoskeletal complaints and Reports as per HPI Neurologic: Reports Normal hearing present Endocrine: Endocrine: Reports no additional endocrine complaints, Denies change in body appearance, Denies excessive sweating, Denies polyphagia, Denies polydipsia and Denies polyuria Exam Const: General: cooperative Nutritional Appearance: average body habitus Orientation/consciousness: patient oriented x3 Limitations: no limitations HENMT: Head: normal to inspection Ears: hearing grossly normal bilaterally General nose exam: Normal external nose present Face and sinus: normal facial exam Mouth: Yes moist mucous membranes Teeth and gingiva: dentition normal Eyes: General: appearance normal, both eyes and all related structures Pupils: Equal, round and reactive pupils present EOM: EOMs intact bilaterally Neck: Neck: normal visual inspection Chest: Chest palpation & inspection: normal inspection of the chest Resp: Effort & Inspection: normal respiratory effort and able to speak in complete sentences Cardio: Jugular venous distension: no JVD Back/Spine/Pelvis: Thoracic/Lumbar Spine: thoraco-lumbar ROM limited (by pain ) with forward flexion, with lateral flexion to the right, with lateral flexion to the left, with rotation to the right and with rotation to the left and straight leg raise positive (b/l ) Pelvis: buttock tenderness Other: Lumbar spine pain with radiation across bilateral hips. Positive ankle dorsiflexion/ plantar flexion. Sensation intact to the toes. Range of motion of the knees without limitation. No joint effusions noted. Neuro: General: patient oriented x3 Cranial nerves: Yes Equal, round and reactive pupils present Extrem: Other: Patient with lumbar spine pain which radiates across the lumbar back to both the right and left hip. Palpable
[2021-09-06] MEDS: MORPHINE SULFATE (*CRX) 2 MG/ML INJ 1 MG IV PUSH (10:29)
--- NOTE | 2021-09-06 15:16 | PM.IMPN ---
Progress Note: A&P Assessment and Plan (1) Closed compression fracture of L1 vertebra: Qualifiers: Encounter type: initial encounter Qualified Code(s): S32.010A - Wedge compression fracture of first lumbar vertebra, initial encounter for closed fracture Code(s): S32.010A - Wedge compression fracture of first lumbar vertebra, initial encounter for closed fracture Status: Acute Assessment and Plan: Presented with back pain radiating to bilateral hips CT abdomen/pelvis showed L1 compression fracture with approximately 25% loss of vertebral body height, also evident on MRI performed on 08/03/2021. Appreciate orthopedic surgery evaluation Continue TLSO brace Supportive care to include ice, heat, lidocaine patch, analgesics as needed Appreciate PT/OT evals. Hopeful discharge to SNF tomorrow She will need DEXA scan as an outpatient. She is at high risk for fractures given chronic steroid use. Will begin vitamin-D supplementation. (2) T12 compression fracture: Code(s): S22.080A - Wedge compression fracture of T11-T12 vertebra, initial encounter for closed fracture Status: Acute Assessment and Plan: Onset June 2021 She has been followed by pain management Had steroid injection on 08/28/2021 Pain management records have been requested Continue outpatient follow-up with pain management (3) Intractable pain: Code(s): R52 - Pain, unspecified Status: Acute Assessment and Plan: Plan as above. Pain has improved significantly. (4) Hypokalemia: Code(s): E87.6 - Hypokalemia Status: Acute Assessment and Plan: Potassium 3.5 today Continue to monitor BMP (5) Paroxysmal atrial fibrillation: Code(s): I48.0 - Paroxysmal atrial fibrillation Status: Acute Assessment and Plan: Rate is controlled at this time. Established with Cardiology at [facility] Continue flecainide Not on chronic anticoagulation as she reports only 1 episode of atrial fibrillation in the past (6) Obstructive sleep apnea on CPAP: Code(s): G47.33 - Obstructive sleep apnea (adult) (pediatric); Z99.89 - Dependence on other enabling machines and devices Status: Acute Assessment and Plan: Continue CPAP during hospitalization (7) Temporal arteritis: Code(s): M31.6 - Other giant cell arteritis Status: Chronic Assessment and Plan: Onset over 1 year ago Managed by Rheumatology on immunosuppressive therapy Continue prednisone daily Continue leflunomide 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 She is doing pretty well today. She rates her low back pain as 6/10. She has been able to get up and walk around with therapy and has been sitting in the chair. She has been wearing her brace. She still has not had a bowel movement and reports feeling constipated. She states that she is not eating much but did do well with eating her lunch today. Denies urinary symptoms. Denies nausea, vomiting, fever, chills, shortness breath, cough, chest pain, dizziness, lightheadedness. Review of Systems Review of Systems: All systems reviewed & are unremarkable except as noted in HPI and below Exam Narrative: Ms. Lang is a well-nourished, well-appearing 81-year-old female who is lying supine in bed. She appears comfortable and is in NARD. Neuro: awake, alert and oriented x4, speech clear,
[2021-09-07] VITALS (7 sets, daily range): BP systolic 110–120; BP diastolic 52–60; PULSE 62–85; RESP 14–20; TEMP 35.8–36.6; O2SAT 96–98
[2021-09-07] MEDS: IBUPROFEN 600 MG TABLET PO ×2 (06:09→11:09)
[2021-09-07] MEDS: LEVOTHYROXINE SODIUM 75 MCG TABLET PO (06:09)
[2021-09-07 07:05] LABS: Anion Gap 5 mmol/L (8-16); Blood Urea Nitrogen 16 mg/dL (7-17); Calcium 8.9 mg/dL (8.4-10.2); Carbon Dioxide 28 mmol/L (22-30); Chloride 104 mmol/L (98-107); Estimated CRCL calculation 50 ml/min; Estimated Glomerular Filt Rate > 60; Glucose 81 mg/dL (65-110); Potassium 2.9 mmol/L (3.4-5.0); Sodium 137 mmol/L (137-145)
[2021-09-07] MEDS: polyethylene glycoL 3350 17 GM POWD.PACK PO (07:42)
[2021-09-07] MEDS: LIDOCAINE 5% PATCH 1 PATCH TRANSDERM (07:42)
[2021-09-07] MEDS: FLUTICASONE/UMECLIDIN/VILANTER 100-62.5-25 MCG ELLIPTA 1 PUFF INHALATION (07:55)
[2021-09-07] MEDS: predniSONE 10 MG TABLET PO (08:02)
[2021-09-07] MEDS: allopurinoL 100 MG TABLET PO (08:02)
[2021-09-07] MEDS: predniSONE 2.5 MG TABLET PO (08:02)
[2021-09-07] MEDS: ASPIRIN 81 MG ENTERIC TABLET PO (08:03)
[2021-09-07] MEDS: FLECAINIDE ACETATE 100 MG TABLET PO (08:03)
[2021-09-07] MEDS: CHOLECALCIFEROL 1,000 UNITS TABLET 1000 UNITS PO (08:03)
[2021-09-07] MEDS: ACEBUTOLOL HCL 200 MG CAPSULE PO (08:03)
[2021-09-07] MEDS: DOCUSATE SODIUM 100 MG CAPSULE PO (08:03)
[2021-09-07] MEDS: ATORVASTATIN 10 MG TABLET PO (08:03)
[2021-09-07] MEDS: LEFLUNOMIDE 20 MG TABLET PO (08:04)
[2021-09-07] MEDS: INDAPAMIDE 1.25 MG TABLET PO (08:04)
[2021-09-07] MEDS: PANTOPRAZOLE 40 MG TABLET PO (08:04)
[2021-09-07] MEDS: HYDROcodone/acetaminophen (*CRX) 10-325 MG TABLET 1 TAB PO ×3 (08:07→16:05)
[2021-09-07 08:33] LABS: Basophils Percent Auto 0.2 % (0.2-1.2); Hematocrit 40.9 % (37.0-47.0); Hemoglobin 13.4 g/dL (12.0-15.0); Immature Granulocyte Absolute 0.34 K/mm3 (0.00-0.031); Immature Granulocyte Percent A 3.5 % (0-0.5); Lymphocytes Absolute Auto 1.21 K/mm3 (0.9-3.2); Lymphocytes Percent Auto 12.5 % (18.3-44.2); Mean Corpuscular HGB Conc 32.8 g/dl (32-36); Mean Corpuscular Hemoglobin 33.4 pg (26-34); Mean Platelet Volume 11.4 fl (7.4-10.4); Monocytes Absolute Auto 2.6 K/mm3 (0.1-0.6); Monocytes Percent Auto 26.7 % (2.6-8.5); Neutrophils Absolute Auto 5.5 K/mm3 (1.3-6.7); Neutrophils Percent Auto 57.1 % (45.5-73.1); Platelet Count Result 94 k/mm3 (150-375); Red Blood Count 4.01 M/mm3 (4.2-5.4); Red Cell Distribution Width 14.2 % (11.5-14.5); White Blood Count 9.7 K/mm3 (4.5-10.0)
--- NOTE | 2021-09-07 09:15 | PM.PNORT ---
Progress Note: A&P Assessment and Plan (1) Closed compression fracture of L1 vertebra: Qualifiers: Encounter type: initial encounter Qualified Code(s): S32.010A - Wedge compression fracture of first lumbar vertebra, initial encounter for closed fracture Code(s): S32.010A - Wedge compression fracture of first lumbar vertebra, initial encounter for closed fracture Status: Acute Assessment and Plan: Lumbar spine MRI from August revealed an acute L1 burst fracture which is new from a CT scan noted in July 2021. CT scan on this admission also shows an L1 compression fracture with approximately 25% loss of vertebral body height. Continue pain control. Heat pack to be obtained for lumbar spine pain. Lidocaine patches as well. Patient to utilize lumbar corset when out of bed. PT and OT as tolerated. Dispo: Okay for d/c to rehab/skilled nursing when medically cleared. Upon discharge, patient will follow up with Dr. Chao's office. Subjective Subjective Date/Time Seen: 09/07/21 09:15 Interval history: Patient awake and alert this morning. Continue complaints of low back pain, mild improvement today. Improvement with pain when ambulating around the room yesterday with PT. Review of Systems Constitutional: Constitutional: Reports no additional constitutional complaints, Denies excessive sweating, Denies fever(s) and Denies weight gain Eyes: Eyes: Reports no additional eye complaints and Denies change in vision ENT: Reports system reviewed and no additional complaints, except as documented and Reports Normal hearing present Cardiovascular: Cardiovascular: Denies chest pain, Denies diaphoresis, Denies leg ulcers and Denies dyspnea on exertion Respiratory: Respiratory: Reports no additional respiratory complaints, Denies cough and Denies dyspnea on exertion Gastrointestinal: Gastrointestinal: Reports no additional gastrointestinal complaints, Denies abdominal pain, Denies constipation, Denies nausea and Denies vomiting Genitourinary: Genitourinary: Denies hematuria and Denies urinary frequency Musculoskeletal: Musculoskeletal: Reports no additional musculoskeletal complaints and Reports as per HPI Neurologic: Reports Normal hearing present Endocrine: Endocrine: Reports no additional endocrine complaints, Denies change in body appearance, Denies excessive sweating, Denies polyphagia, Denies polydipsia and Denies polyuria Exam Const: General: cooperative Nutritional Appearance: average body habitus Orientation/consciousness: patient oriented x3 Limitations: no limitations HENMT: Head: normal to inspection Ears: hearing grossly normal bilaterally General nose exam: Normal external nose present Face and sinus: normal facial exam Mouth: Yes moist mucous membranes Teeth and gingiva: dentition normal Eyes: General: appearance normal, both eyes and all related structures Pupils: Equal, round and reactive pupils present EOM: EOMs intact bilaterally Neck: Neck: normal visual inspection Chest: Chest palpation & inspection: normal inspection of the chest Resp: Effort & Inspection: normal respiratory effort and able to speak in complete sentences Cardio: Jugular venous distension: no JVD Back/Spine/Pelvis: Thoracic/Lumbar Spine: thoraco-lumbar ROM limited (by pain ) with forward flexion, with lateral flexion to the right, with lateral flexion to the left, with rotation to the right and with rotation to the left and straight leg raise positive (b/l ) Pelvis: buttock tenderness Other: Lumbar spine pain with radiation across bilateral hips. Positive ankle dorsiflexion/ plantar flexion. Sensation intact to the toes. Range of motion of the knees without limitation. No joint effusions noted. Neuro: General: patient oriented x3 Cranial nerves: Yes Equal, round and reactive pupils present Extrem: Other: Patient with lumbar spine pain which radiates across the lumbar back to both the right and left h
--- NOTE | 2021-09-07 10:31 | PCNFU ---
Nutrition Follow-Up Complete: Inadequate Oral Intake as related to L1 fx as evidenced by poor po intake and weight loss reported. Goal: Meet estimated nutritional needs Patient is progressing towards goal. We will continue current goal. Pt current nutrition is Regular with Ensure compact BID. Last recorded weight is 90.5 kg, up from 86.1 kg. Bowel Motility:+BM reported 09/06 Labs Reviewed:Glu 205, Alb 2.5,Hgb 10.0, Hct 30.8 Meds Noted:Vit D, Lipitor, Lozol, Tambocor, Protonix, Prednisone, Synthroid. Additional Notes: Nutrition follow up. Patient seen today, states to poor appetite. Oral intake has been 5-50% of most meals, for breakfast today-bites. She is receiving the Ensure compact BID but telling me today she has not drank them yet. Diet supplements were encouraged and will send chocolate per patient preference. Agree with diet orders. Monitoring: Will monitor every 3 days.
[2021-09-07] MEDS: POTASSIUM CHLORIDE 20 MEQ TABLET 40 MEQ PO (11:09)
[2021-09-07 14:19] LABS: Potassium 4.5 mmol/L (3.4-5.0)
--- NOTE | 2021-09-07 14:59 | PM.DS ---
DS: Admitting Diagnosis Discharge Date 09/07/2021 Admitting Diagnosis Intractable low back pain DS: Discharge Diagnosis Discharge Diagnosis (1) Closed compression fracture of L1 vertebra: Qualifiers: Encounter type: initial encounter Qualified Code(s): S32.010A - Wedge compression fracture of first lumbar vertebra, initial encounter for closed fracture Code(s): S32.010A - Wedge compression fracture of first lumbar vertebra, initial encounter for closed fracture Status: Acute Assessment and Plan: Presented with back pain radiating to bilateral hips CT abdomen/pelvis showed L1 compression fracture with approximately 25% loss of vertebral body height, also evident on MRI performed on 08/03/2021. She was seen in consultation by Orthopedic surgery Lumbar corset brace was applied and is to be worn when out of bed and with ambulation Supportive care provided including ice, heat, lidocaine patch, analgesics as needed She was evaluated PT/OT and will continue therapy at SNF She will need DEXA scan as an outpatient. She is at high risk for fractures given chronic steroid use. Vitamin-D levels found to be low and supplementation was initiated. (2) T12 compression fracture: Code(s): S22.080A - Wedge compression fracture of T11-T12 vertebra, initial encounter for closed fracture Status: Acute Assessment and Plan: Onset June 2021 She has been followed by pain management Had steroid injection on 08/28/2021 Pain management records were requested, she will need to follow-up with her pain management provider on discharge (3) Intractable pain: Code(s): R52 - Pain, unspecified Status: Acute Assessment and Plan: Secondary to compression fractures as above. She had symptomatic improvement. Continue with analgesics and supportive care at SNF. (4) Hypokalemia: Code(s): E87.6 - Hypokalemia Status: Acute Assessment and Plan: Potassium was low, etiology for this not entirely clear. Potassium monitor daily and supplemented as needed. She will be started on 10 mEq potassium daily for 1 week and will recheck potassium levels in 1 week with results to PCP (5) Paroxysmal atrial fibrillation: Code(s): I48.0 - Paroxysmal atrial fibrillation Status: Acute Assessment and Plan: Rate remained well controlled. Established with Cardiology at [facility] Continue flecainide Not on chronic anticoagulation as she reports only 1 episode of atrial fibrillation in the past (6) Obstructive sleep apnea on CPAP: Code(s): G47.33 - Obstructive sleep apnea (adult) (pediatric); Z99.89 - Dependence on other enabling machines and devices Status: Acute Assessment and Plan: Continue CPAP (7) Temporal arteritis: Code(s): M31.6 - Other giant cell arteritis Status: Chronic Assessment and Plan: Onset over 1 year ago Managed by Rheumatology on immunosuppressive therapy Continue prednisone daily Continue leflunomide She reports her vice president of academic affairs suspects chronic steroid use to be the cause of her compression fractures; she is at risk for additional fractures due to this (8) Thrombocytopenia: Code(s): D69.6 - Thrombocytopenia, unspecified Status: Acute Assessment and Plan: Mildly low platelet count down to 94,000. Lovenox was discontinued. Repeat CBC with differential in 1 week for further monitoring. Anticipate return back to baseline. DS: Summary Hospital Course Hospital Course: Date of admission: 09/03/2021 Date of discharge: 09/07/2021 Nidia Lang is an 81-year-old female with a history of hypertension, hypothyroidism, MEGAN, paroxysmal atrial fibrillation not on chronic anticoagulation, history of T12 compression fracture followed by pain management and maintained with steroid injections, and history of temporal arteritis on immunosuppresive therapy who presented to the
== END 2021-09-07 16:15 | DRG 552 ==
LOC: ANHED 15:40 → ANH2MED 09-04 06:56
PROVIDERS: Physician Assistant; Admitting Provider Family Medicine; Emergency Provider Nurse Practitioner; PCP Family Medicine; Visit Provider Family Medicine
DX: S32.010A Wedge compression fracture of first lumbar vertebra, initial encounter for closed fracture (principal); S22.080A Wedge compression fracture of T11-T12 vertebra, initial encounter for closed fracture; E87.6 Hypokalemia; Z20.822 Contact with and (suspected) exposure to COVID-19; G47.33 Obstructive sleep apnea (adult) (pediatric); M31.6 Other giant cell arteritis; D69.6 Thrombocytopenia, unspecified; I48.0 Paroxysmal atrial fibrillation; K21.9 Gastro-esophageal reflux disease without esophagitis; M17.12 Unilateral primary osteoarthritis, left knee; E03.9 Hypothyroidism, unspecified; M10.9 Gout, unspecified; E78.5 Hyperlipidemia, unspecified; I10 Essential (primary) hypertension; J44.9 Chronic obstructive pulmonary disease, unspecified; K59.03 Drug induced constipation; T40.605A Adverse effect of unspecified narcotics, initial encounter; Z99.89 Dependence on other enabling machines and devices; Z79.82 Long term (current) use of aspirin; Z98.42 Cataract extraction status, left eye; Z98.41 Cataract extraction status, right eye; Z79.52 Long term (current) use of systemic steroids
CPT/HCPCS: 36415; 73521; 74176; 80048; 80053; 81001; 82306; 83735; 84132; 84443; 85025; 85027; 85610; 85730; 87426; 94640; 96374; 96375; 96376; 97110; 97116; 97162; 97165; 97530; 97535; 99285; A9270; C9803; G0378; J1170; J1650; J2270; J2405; J3480; J7512

== ENCOUNTER 2021-10-30 13:58 | Outpatient (CLI) | payer MEDICARE, SELFPAY ==
--- NOTE | ~2021-10-30 | DEXA_ITS ---
Bone Density Report Name: Nidia Lang Age: 81 Sex: Female Ethnicity: White Date of : 1940 Indication: monitoring treatment; parental hip fracture; height loss; history of glucocorticoids; postmenopausal Referring Provider: Denise Balderas Study: Bone densitometry was performed. Exam Date: October 30, 2021 Accession number: [id number] Bone Density: Region BMD T-score Z-score Classification AP Spine (L2, L3) 1.225 1.5 4.3 Normal Femoral Neck (Left) 0.771 -0.7 1.7 Normal Total Hip (Left) 0.960 0.1 2.3 Normal Total Hip Bilateral Avg 0.942 -0.1 2.2 Normal Femoral Neck (Right) 0.709 -1.3 1.1 Osteopenia Total Hip (Right) 0.923 -0.2 2.0 Normal World Health Organization criteria for BMD impression classify patients as: Normal (T-score at or above -1.0), Osteopenia (T-score between -1.0 and -2.5), or Osteoporosis (T-score at or below -2.5). 10-year Fracture Risk: FRAX not reported because: Treated for osteoporosis Previous Exams: Region Exam Age BMD T-score BMD Change BMD Change Date g/cm2 vs Baseline vs Previous AP Spine(L2, L3) 10/30/2021 81 1.225 1.5 0.246(25.1%)# 0.110(9.9%)* 04/12/2015 75 1.115 0.5 0.136(13.9%)# 0.086(8.4%)# 08/02/2011 71 1.029 -0.3 0.050(5.1%)* 0.031(3.1%)* 06/11/2008 68 0.998 -0.5 0.019(1.9%) 0.019(1.9%) 09/14/2004 64 0.979 -0.7 Total Hip(Left) 10/30/2021 81 0.960 0.1 0.017(1.9%)# 0.062(6.9%)* 04/12/2015 75 0.898 -0.4 -0.044(-4.7%)# -0.022(-2.4%)# 08/02/2011 71 0.920 -0.2 -0.023(-2.4%) -0.055(-5.6%)* 06/11/2008 68 0.975 0.3 0.032(3.4%)* 0.032(3.4%)* 09/14/2004 64 0.943 0.0 Total Hip(Right) 10/30/2021 81 0.923 -0.2 0.021(2.3%)# 0.015(1.6%) 04/12/2015 75 0.908 -0.3 0.006(0.7%)# 0.000(0.0%)# 08/02/2011 71 0.908 -0.3 0.006(0.6%) 0.047(5.5%)* 06/11/2008 68 0.860 -0.7 -0.042(-4.6%)* -0.042(-4.6%)* 09/14/2004 64 0.902 -0.3 *Denotes significance at 95% confidence level, LSC for AP Spine = 0.022 g/cm2, LSC for Total Hip = 0.027 g/cm2 Clinical Information Provided by Patient: Parent has had a hip fracture Has taken Glucocorticoids Is being treated for osteoporosis Has used the following medications: Boniva (i.e. ibandronate), Vitamin D, Calcium Patient maximum height was 66.5 Menopause Age: 50 Does not regularly consume dairy products Drinks caffeinated beverages Onset of menses at age 13 Number of children 4
== END 2021-10-30 13:59 | disposition home or self-care (01) ==
LOC: ANHIMG 13:59
PROVIDERS: PCP Family Medicine
DX: M31.6 Other giant cell arteritis (principal); M80.08XA Age-related osteoporosis with current pathological fracture, vertebra(e), initial encounter for fracture; M85.851 Other specified disorders of bone density and structure, right thigh
CPT/HCPCS: 77080

== ENCOUNTER 2021-11-30 14:01 | Outpatient (CLI) | payer MEDICARE, SELFPAY ==
--- NOTE | ~2021-11-30 | CT_ITS ---
EXAMINATION: CT thoracic lumbar wo con DATE: 11/30/2021 14:42 INDICATION: Mid to low back pain with radiculopathy. TECHNIQUE: Computed tomography (CT) of the thoracic and lumbar spine was performed without intravenou s contrast. Automated exposure control and iterative reconstruction technique were employed. The dose -length product was 1371.81 mGy-cm. COMPARISON: CT lumbar spine 07/09/2021, chest CT 07/19/2017, CT abdomen and pelvis 09/03/2021 FINDINGS: CT THORACIC SPINE: There is mild scarring at right lung apex. There are mild airspace opacities in ba silar right lower lobe, consistent with atelectasis versus pneumonia. No pleural effusion. There is 9 degrees dextrocurvature of upper thoracic spine. There is a Schmorl's node of T12 superior endplate. There is mildly decreased disc height from T3-T4 through T12-L1. There are bridging endplate osteoph ytes from T5 to T9, consistent with diffuse idiopathic skeletal hyperostosis (DISH). There is multile brenda facet joint osteoarthritis. There is mild neural foraminal stenosis at many levels bilaterally. O n the right, there is moderate neural foraminal stenosis at T8-T9 and T10-T11. On the left, there is moderate neural foraminal stenosis at T4-T5, T8-T9, T9-T10, and T11-T12. There is mild central canal stenosis at T10-T11, T11-T12, and T12-L1. CT LUMBAR SPINE: There is 19 degrees levoscoliosis of lumbar spine. There is a burst fracture of L1 w ith retropulsion of bone 3 mm into central spinal canal and 2/5 height loss. There is 3 mm anterolist hesis of L3 on L4 and L4 on L5 and 6 mm anterolisthesis of L5 on S1. There is moderately decreased di sc height at L1-L2, severely decreased disc height at L2-L3, mildly decreased disc height at L3-L4, a nd moderately decreased disc height at L4-L5 and L5-S1. There is Baastrup disease at L2-L3 and L3-L4. The following disc levels are specifically discussed: L1-L2: The disc is bulging. There is moderate bilateral facet joint osteoarthritis. There is moderate right and mild left neural foraminal stenosis. There is mild central canal stenosis. L2-L3: The disc is bulging. There is severe bilateral facet joint osteoarthritis. There is mild bilat eral neural foraminal stenosis. There is mild central canal stenosis. L3-L4: The disc is bulging. There is severe bilateral facet joint osteoarthritis. There is mild bilat eral neural foraminal stenosis. There is moderate central canal stenosis. L4-L5: The disc is bulging. There is severe bilateral facet joint osteoarthritis. There is mild bilat eral neural foraminal stenosis. There is mild central canal stenosis. L5-S1: The disc is bulging. There is severe bilateral facet joint osteoarthritis. There is mild bilat eral neural foraminal stenosis. There is no central canal stenosis. IMPRESSION: 1. Subacute L1 burst fracture, worsened from 09/03/2021. 2. Severe lumbar spondylosis and moderate thoracic spondylosis. 3. Scoliosis. 4. Mild airspace opacities in right lung lower lobe, consistent with atelectasis versus pneumonia. Reviewed, dictated and finalized at location A. CTICIDE MIXER IMPRESSION: 1. Subacute L1 burst fracture, worsened from 09/03/2021. 2. Severe lumbar spondylosis and moderate thoracic spondylosis. 3. Scoliosis. 4. Mild airspace opacities in right lung lower lobe, consistent with atelectasi s versus pneumonia.
--- NOTE | ~2021-11-30 | CT_ITS ---
EXAMINATION: CT pelvis wo con DATE: 11/30/2021 14:42 INDICATION: Mid and low back pain with radiculopathy. TECHNIQUE: Computed tomography (CT) of the pelvis was performed without intravenous contrast. Automat ed exposure control and iterative reconstruction technique were employed. The dose-length product was 494.90 mGy-cm. COMPARISON: CT abdomen and pelvis 09/03/2021 FINDINGS: There is an umbilical hernia containing fat. There are no dilated loops of bowel. There is diverticulosis of the colon without evidence of diverticulitis. There are bilateral inguinal hernias containing fat. Pelvic floor relaxation is noted. There is lumbar levoscoliosis and severe spondylosi s. There is mild osteoarthritis of the hips. Osteitis pubis is noted. IMPRESSION: 1. Umbilical hernia and bilateral inguinal hernias containing fat. 2. Pelvic floor relaxation. 3. Mild osteoarthritis of the hips. Reviewed, dictated and finalized at location B. E WORKER
== END 2021-11-30 14:02 | disposition home or self-care (01) ==
LOC: ANHIMG 14:16
PROVIDERS: PCP Family Medicine; Visit Provider Family Medicine
DX: M47.26 Other spondylosis with radiculopathy, lumbar region (principal); M41.9 Scoliosis, unspecified; M16.0 Bilateral primary osteoarthritis of hip; K42.9 Umbilical hernia without obstruction or gangrene
CPT/HCPCS: 72128; 72131; 72192

== ENCOUNTER 2022-04-12 10:55 | Outpatient (CLI) | payer MEDICARE, SELFPAY ==
--- NOTE | ~2022-04-12 | XR_ITS ---
XR lumbar spine min 4V DATE: 04/12/2022 11:21 INDICATION: Back pain TECHNIQUE: Standing AP, lateral views. Flexion and extension standing lateral views. COMPARISON: 11/30/2021 CDT thoracic and lumbar spine FINDINGS: There is diffuse osteopenia. Degenerative spurring of the lower thoracic spine. There is prominent rotatory levoscoliosis of the lower thoracic and lumbar spine. There is loss of height, biconcavity, anterior wedging, sclerosis of L1 due to burst fracture. This a ppears relatively stable since 11/30/2021. There is severe degenerative disc disease throughout the lumbar spine. There is very prominent degene rative change at the apophyseal joints as well, with associated grade 1 anterolisthesis at L4-5 and L 5-S1. No instability is noted on flexion or extension. The sacroiliac joints and pubic symphysis are intact. Mild bilateral hip osteoarthritis. IMPRESSION: Chronic burst fracture deformity of L1 Osteopenia Prominent rotatory levoscoliosis of the thoracolumbar spine Severe multilevel degenerative disc disease of the lumbar spine Prominent degenerative change at the lumbar apophyseal joints with associated grade 1 anterolisthesis at L4-5 and L5-S1 Reviewed, dictated and finalized at location B. IMPRESSION: Chronic burst fracture deformity of L1 Osteopenia Prominent rotatory levoscoliosis of the thoracolumbar spine Severe multilevel degenerative disc disease of the lumbar spine Prominent degenerative change at the lumbar apophyseal joints with associated g rade 1 anterolisthesis at L4-5 and L5-S1
== END 2022-04-12 10:56 | disposition home or self-care (01) ==
PROVIDERS: PCP Family Medicine; Visit Provider Neurological Surgery
DX: M85.88 Other specified disorders of bone density and structure, other site (principal); M51.36 Other intervertebral disc degeneration, lumbar region
CPT/HCPCS: 72110

== ENCOUNTER 2022-09-04 19:00 | Emergency (ER) | payer MEDICARE, SELFPAY ==
[2022-09-04] VITALS (20 sets, daily range): BP systolic 133–170; BP diastolic 65–96; PULSE 85–96; RESP 15–23; TEMP 37.2; O2SAT 86–100
--- NOTE | ~2022-09-04 | XR_ITS ---
EXAMINATION: XR chest 2V Exam Date/Time: 09/04/2022 19:10 CDT HISTORY: sob Comparison: 06/20/2021. RESULT: Lines, tubes, and devices: None. Lungs and pleura: Diffuse reticulonodular opacities, slightly increased. Pulmonary opacities may rep resent bronchiolitis, as can be seen with atypical infection, asthma, aspiration, and small airways d isease. Emphysematous change. Cardiomediastinal silhouette: Stable cardiomegaly and aortic ectasia. Other: No acute osseous or upper abdominal finding. IMPRESSION: Worsening bronchiolitis. Reviewed, dictated and finalized at location K. IMPRESSION: Worsening bronchiolitis.
--- NOTE | ~2022-09-04 | CT_ITS ---
EXAMINATION: CT thoracic lumbar wo con DATE: 09/04/2022 19:32 INDICATION: back pain . TECHNIQUE: Computed tomography (CT) of the thoracic and lumbar spine was performed without intravenou s contrast. The dose-length product was 1829.65 mGy-cm. COMPARISON: CT 11/30/2021 FINDINGS: THORACIC SPINE: Vertebral body alignment intact. Mild thoracic scoliosis. Mild anterior wedge deformity in the midtho racic spine. Exaggerated thoracic kyphosis. Multilevel disc space narrowing and marginal osteophytosi s and bridging osteophytes. No traumatic malalignment or fracture. Visualized lung parenchyma is sera r. LUMBAR SPINE: Moderate lumbar scoliosis. Multilevel severe degenerative disc disease and facet arthropathy. Grade 1 anterolistheses at L3-4 and L5-S1. Mild wedge deformity at L3, with worsening inferior endplate defo rmity, worse than in the prior study. Moderate anterior wedge deformity at L1, slightly worse than in the prior study. Sclerosis of the L1 and L3 vertebral bodies, new at L3. Increasing superior endplat e deformity at L3. IMPRESSION: Worsening, likely pathologic vertebral body fractures at L1 and L3. Reviewed, dictated and finalized at location K.
--- NOTE | 2022-09-04 19:07 | ECG_ITS ---
Measurements Intervals [place] Rate: 93 P: 74 OK: 201 QRS: 38 QRSD: 80 T: 79 QT: 334 QTc: 416 Interpretive Statements SINUS RHYTHM CANNOT RULE OUT SEPTAL MYOCARDIAL INFARCTION , PROBABLY OLD ABNORMAL ECG COMPARED TO ECG 07/09/2021 21:13:01 INFERIOR INFARCTION NOT APPRECIATED Electronically Signed On 09-05-2022 14:58:16 CDT by Ruben Hobson M.D.
--- NOTE | 2022-09-04 19:11 | ED.GENADULT ---
HPI - General Adult General Chief complaint: Shortness of Breath/Dyspnea Stated complaint: SOB, BLE EDEMA Time Seen by Provider: 09/04/22 19:09 History of Present Illness HPI narrative: 82-year-old female with history of COPD and previous T12 fracture presented to the emergency department for evaluation of worsening back pain along with worsening lower extremity swelling and shortness of breath. Patient reports she had a spontaneous fracture of her back a few months ago but states for the last few weeks she has had worsening back pain. Patient states that this has caused her to have decreased ambulation patient states that she is primarily wheelchair-bound. Patient states that over the last few days she has had worsening lower extremity edema and has also developed some shortness of breath. Patient had previously been taking a water pill but stopped it because it was not doing anything . Patient does have history of thrombocytopenia, paroxysmal atrial fibrillation, compression fractures, rheumatoid arthritis on prednisone Related Data Home Medications Medication Instructions Recorded Confirmed aspirin 81 mg tablet,delayed 81 mg PO DAILY 11/26/19 09/03/21 release [place] 3 Fish Oil 100 mg PO DAILY 07/09/21 09/03/21 calcium carbonate 600 mg-vitamin 1 tablet PO DAILY 07/09/21 09/03/21 D3 10 mcg (400 unit) tablet (Calcium with Vitamin D) fluticasone fur. 100 mcg-umeclid 1 inh inhalation DAILY 07/10/21 09/03/21 62.5 mcg-vilant 25 mcg inhalat.powder (Trelegy Ellipta) allopurinol 100 mg tablet 100 mg PO DAILY 09/03/21 09/03/21 atorvastatin 10 mg tablet 10 mg PO DAILY 09/03/21 09/03/21 docusate sodium 100 mg tablet 100 mg PO DAILY 09/03/21 09/03/21 flecainide 100 mg tablet 100 mg PO Q12H 09/03/21 09/03/21 leflunomide 20 mg tablet 20 mg PO DAILY 09/03/21 09/03/21 levothyroxine 75 mcg tablet 75 mcg PO DAILY 09/03/21 09/03/21 (Synthroid) prednisone 5 mg tablet 12.5 mg PO DAILY 09/03/21 09/03/21 Allergies Allergy/AdvReac Type Severity Reaction Status Date / Time No Known Allergies Allergy Unknown Verified 09/03/21 18:48 Review of Systems Review of Systems: CONSTITUTIONAL: Denies fever, chills, or sweats. EYES: Denies visual changes, redness, or discharge. ENT: Denies rhinorrhea, congestion, sore throat, or otalgia. CARDIOVASCULAR: Denies chest pain, palpitations, lower extremity swelling RESPIRATORY: Shortness of breath GASTROINTESTINAL: Denies abdominal pain, nausea, vomiting, or diarrhea. GENITOURINARY: Denies dysuria or hematuria. SKIN: Denies rash or itching. MUSCULOSKELETAL: Low back pain NEUROLOGIC: Denies headache, numbness, or weakness. [facility] Past Medical History Medical History Essential (primary) hypertension Gastroesophageal reflux disease Gout High cholesterol Hypothyroidism Obstructive sleep apnea on CPAP Paroxysmal atrial fibrillation Primary osteoarthritis of left knee Strabismus T12 compression fracture Temporal arteritis Surgical History Surgical History History of arthroscopy of right knee (2019) History of cataract extraction History of thyroidectomy History of tonsillectomy History of tubal ligation Family History Family History Father Acute myocardial infarction Family history of cardiovascular disease Family history of sudden , Onset Age: 46 Family history of elevated blood lipids Family history of coronary artery disease Grandparent Diabetes mellitus Family history of coronary artery disease Family history of malignant neoplasm of breast in first degree relative Mother Family history of glaucoma Hypertension Family history of elevated blood lipids Sibling Hypertension Social History Social History (Updated 09/03/21 @ 22:47 by Radha Mack PA-C) Social History: Surrogate decision maker: Bettye
[2022-09-04 19:40] LABS: Basophils Percent Auto 0.1 % (0.2-1.2); Eosinophils Percent Auto 0.1 % (0-4.4); Hematocrit 29.3 % (37.0-47.0); Hemoglobin 8.6 g/dL (12.0-15.0); Immature Granulocyte Absolute 0.47 K/mm3 (0.00-0.031); Immature Granulocyte Percent A 4.6 % (0-0.5); Lymphocytes Absolute Auto 0.49 K/mm3 (0.9-3.2); Lymphocytes Percent Auto 4.8 % (18.3-44.2); Mean Corpuscular HGB Conc 29.4 g/dl (32-36); Mean Corpuscular Hemoglobin 27.7 pg (26-34); Mean Corpuscular Volume 94.5 fl (80-100); Mean Platelet Volume 9.7 fl (7.4-10.4); Monocytes Absolute Auto 3.2 K/mm3 (0.1-0.6); Monocytes Percent Auto 30.7 % (2.6-8.5); Neutrophils Absolute Auto 6.2 K/mm3 (1.3-6.7); Neutrophils Percent Auto 59.7 % (45.5-73.1); Platelet Count Result 143 k/mm3 (150-375); Red Cell Distribution Width 15.3 % (11.5-14.5); White Blood Count 10.3 K/mm3 (4.5-10.0)
[2022-09-04 19:49] LABS: Alanine Aminotransferase 22 U/L (6-35); Alkaline Phosphatase 127 U/L (38-126); Anion Gap 11 mmol/L (8-16); Aspartate Amino Transferase 33 U/L (14-36); Bilirubin,Total 0.4 mg/dL (0.2-1.3); Blood Urea Nitrogen 21 mg/dL (7-17); Calcium 9.4 mg/dL (8.4-10.2); Carbon Dioxide 28 mmol/L (22-30); Chloride 102 mmol/L (98-107); Estimated CRCL calculation 42 ml/min; Estimated Glomerular Filt Rate 53; Glucose 87 mg/dL (65-110); Potassium 4.7 mmol/L (3.4-5.0); Sodium 141 mmol/L (137-145)
[2022-09-04 19:58] LABS: NT Pro B Type Natriuretic Pept 529 pg/mL (5-100)
[2022-09-04] MEDS: ALBUTEROL SULFATE NEB 2.5 MG/3 ML INH 5 MG INHALATION (20:26)
--- NOTE | 2022-09-04 23:01 | PC.NURSE ---
Patient care report called to Hema nurse at [facility].
[2022-09-04] MEDS: HYDROcodone/acetaminophen (*CRX) 10-325 MG TABLET 1 TAB PO (23:19)
[2022-09-04] MEDS: AZITHROMYCIN 250 MG TABLET 500 MG PO (23:20)
== END 2022-09-04 23:45 ==
PROVIDERS: Physician Assistant; Emergency Provider Emergency Medicine; PCP Family Medicine
DX: J21.9 Acute bronchiolitis, unspecified (principal); M48.56XA Collapsed vertebra, not elsewhere classified, lumbar region, initial encounter for fracture; I48.0 Paroxysmal atrial fibrillation; M06.9 Rheumatoid arthritis, unspecified; I10 Essential (primary) hypertension; K21.9 Gastro-esophageal reflux disease without esophagitis; M10.9 Gout, unspecified; E78.00 Pure hypercholesterolemia, unspecified; G47.33 Obstructive sleep apnea (adult) (pediatric); E89.0 Postprocedural hypothyroidism; Z79.82 Long term (current) use of aspirin; Z79.51 Long term (current) use of inhaled steroids; Z79.52 Long term (current) use of systemic steroids; Z79.891 Long term (current) use of opiate analgesic
CPT/HCPCS: 36415; 71046; 72128; 72131; 80053; 83880; 85025; 93005; 94640; 99284; A9270

== ENCOUNTER 2022-10-16 10:23 | Outpatient (CLI) | payer MEDICARE, SELFPAY ==
--- NOTE | ~2022-10-16 | XR_ITS ---
XR chest 2V DATE: 10/16/2022 10:56 INDICATION: Cough for one week. Acute bronchiolitis. TECHNIQUE: AP and lateral views COMPARISON: 09/04/2022 AP and lateral chest FINDINGS: Heart size is normal. Mild aortic arch calcification and minimal aortic unfolding. No hilar or mediastinal enlargement. No pulmonary infiltrate or consolidation, pleural effusion or pulmonary vascular congestion or pneumo thorax. There is dextroscoliosis and diffuse idiopathic skeletal hyperostosis of the thoracic spine. Osteoart hritic changes at the glenohumeral joints. Old healed left clavicular shaft fracture. Osteopenia. IMPRESSION: No active cardiopulmonary disease Reviewed, dictated and finalized at location A. R MIXER
[2022-10-16 10:43] LABS: Hematocrit 31.7 % (37.0-47.0); Hemoglobin 9.1 g/dL (12.0-15.0); Mean Corpuscular HGB Conc 28.7 g/dl (32-36); Mean Corpuscular Volume 94.1 fl (80-100); Mean Platelet Volume 9.6 fl (7.4-10.4); Platelet Count Result 253 k/mm3 (150-375); Red Blood Count 3.37 M/mm3 (4.2-5.4); Red Cell Distribution Width 16.7 % (11.5-14.5); White Blood Count 11.4 K/mm3 (4.5-10.0)
[2022-10-16 10:49] LABS: Alanine Aminotransferase 14 U/L (6-35); Albumin Level 4.2 g/dL (3.5-5.1); Alkaline Phosphatase 104 U/L (38-126); Anion Gap 14 mmol/L (8-16); Aspartate Amino Transferase 23 U/L (14-36); Bilirubin,Total 0.4 mg/dL (0.2-1.3); Blood Urea Nitrogen 25 mg/dL (7-17); Calcium 9.3 mg/dL (8.4-10.2); Carbon Dioxide 29 mmol/L (22-30); Chloride 100 mmol/L (98-107); Estimated Glomerular Filt Rate 43; Glucose 102 mg/dL (65-110); Potassium 4.3 mmol/L (3.4-5.0); Sodium 143 mmol/L (137-145)
[2022-10-16 12:40] LABS: Band Neutrophils Percent 2 % (0-6); Lymphocytes Absolute Manual 1.48 K/mm3 (1.1-4.5); Monocytes Absolute Manual 0.45 K/mm3 (0.1-0.90); Monocytes Percent Manual 4 % (3-9); Neutrophils Absolute Manual 9.46 K/mm3 (1.7-7.2); Neutrophils Percent Manual 81 % (46-73); Platelet Estimate Adequate (Adequate); Schistocytes None Seen (NORMAL); Total Cells Counted 100
[2022-10-16 12:41] LABS: Anisocytosis 1+ (NORMAL); Hypochromasia 1+ (NORMAL)
== END 2022-10-16 10:24 | disposition home or self-care (01) ==
PROVIDERS: PCP Family Medicine; Visit Provider Internal Medicine Critical Care Medicine
DX: J21.9 Acute bronchiolitis, unspecified (principal); R05.9 Cough, unspecified
CPT/HCPCS: 36415; 71046; 80053; 85025

== ENCOUNTER 2022-11-28 09:57 | Outpatient (CLI) | payer MEDICARE, SELFPAY ==
--- NOTE | 2022-11-30 08:31 | WPDPFTINT ---
PFT Procedure Performed PFT Procedure Performed Spirometry with Pre/Post Bronchodilator Plethysmography (Lung Vol) Diffusing Cap (DLCO) Flow Vol Loop PFT Interpretation Lung volumes were measured with the body plethysmography method. Apparently the extremely large lung volumes are related to error in measurement. Consider repeating lung volume measurements. Spirometry showed diminished expiratory flow rates and a normal FEV1 to FVC ratio 74%. Following administration of a bronchodilator there was no significant increase in expiratory flow rates. Lung diffusion capacity is severely reduced at 42% predicted. The flow volume loop is consistent with possible restrictive defect. Impression: Restrictive pattern on spirometry. Severely reduced lung diffusion capacity. Uninterpretable lung volumes.
== END 2022-11-28 09:58 | disposition home or self-care (01) ==
LOC: ANHPFT 09:59
PROVIDERS: PCP Family Medicine; Visit Provider Internal Medicine Critical Care Medicine
DX: J21.9 Acute bronchiolitis, unspecified (principal); R94.2 Abnormal results of pulmonary function studies
CPT/HCPCS: 94060; 94726; 94729

== ENCOUNTER 2022-12-05 15:24 | Emergency (ER) | payer MEDICARE, SELFPAY ==
[2022-12-05] VITALS (7 sets, daily range): BP systolic 141–173; BP diastolic 69–75; PULSE 76–79; RESP 16–20; TEMP 36.4; O2SAT 95–98
--- NOTE | ~2022-12-05 | XR_ITS ---
XR chest 2V DATE: 12/05/2022 16:12 INDICATION: Shortness of breath, chest tightness TECHNIQUE: AP and lateral views COMPARISON: 10/16/2022 AP and lateral chest FINDINGS: There is patchy infiltrate and/or atelectasis in the left mid and to a greater extent lower lung zones, including lingula and lower lobe. The right lung appears essentially clear. Heart size appears within normal range. Aortic arch calcification. No pleural effusion is noted. Pulmonary vascularity is within normal range. No pneumothorax. IMPRESSION: Patchy infiltrate and/or atelectasis, left mid and particularly lower lung Reviewed, dictated and finalized at location B. Y LEVEL STAFF ACCOUNTANT IMPRESSION: Patchy infiltrate and/or atelectasis, left mid and particularly low er lung
--- NOTE | 2022-12-05 15:25 | ECG_ITS ---
Measurements Intervals [place] Rate: 81 P: 35 OK: 194 QRS: -24 QRSD: 94 T: 43 QT: 369 QTc: 431 Interpretive Statements SINUS RHYTHM LOW QRS VOLTAGE IN PRECORDIAL LEADS ANTEROSEPTAL INFARCT, AGE INDETERMINATE CONSIDER INFERIOR INFARCT, AGE INDETERMINATE BASELINE ARTIFACT- I, II, III, AVR, AVL, V1-V3 ABNORMAL ECG COMPARED TO ECG 09/04/2022 20:28:13 NO SIGNIFICANT CHANGES Electronically Signed On 12-05-2022 15:58:59 HOMICIDE SQUAD CAPTAIN by Gael Rincon D.O.
[2022-12-05 16:01] LABS: Basophils Percent Auto 0.2 % (0.2-1.2); Eosinophils Percent Auto 0.2 % (0-4.4); Hematocrit 30.4 % (37.0-47.0); Hemoglobin 8.7 g/dL (12.0-15.0); Immature Granulocyte Absolute 0.44 K/mm3 (0.00-0.031); Immature Granulocyte Percent A 4.4 % (0-0.5); Lymphocytes Absolute Auto 1.28 K/mm3 (0.9-3.2); Lymphocytes Percent Auto 12.9 % (18.3-44.2); Mean Corpuscular HGB Conc 28.6 g/dl (32-36); Mean Corpuscular Hemoglobin 26.4 pg (26-34); Mean Corpuscular Volume 92.1 fl (80-100); Mean Platelet Volume 10.8 fl (7.4-10.4); Monocytes Absolute Auto 1.4 K/mm3 (0.1-0.6); Monocytes Percent Auto 13.8 % (2.6-8.5); Neutrophils Absolute Auto 6.8 K/mm3 (1.3-6.7); Neutrophils Percent Auto 68.5 % (45.5-73.1); Platelet Count Result 183 k/mm3 (150-375); Red Cell Distribution Width 18.1 % (11.5-14.5)
[2022-12-05 16:04] LABS: Alanine Aminotransferase 20 U/L (6-35); Albumin Level 4.5 g/dL (3.5-5.1); Alkaline Phosphatase 121 U/L (38-126); Anion Gap 6 mmol/L (8-16); Aspartate Amino Transferase 29 U/L (14-36); Bilirubin,Total 0.5 mg/dL (0.2-1.3); Blood Urea Nitrogen 27 mg/dL (7-17); Calcium 9.2 mg/dL (8.4-10.2); Carbon Dioxide 30 mmol/L (22-30); Chloride 99 mmol/L (98-107); Estimated CRCL calculation 35 ml/min; Estimated Glomerular Filt Rate 48; Glucose 104 mg/dL (65-110); Potassium 4.7 mmol/L (3.4-5.0); Sodium 135 mmol/L (137-145)
[2022-12-05 16:20] LABS: Platelet Estimate Adequate (Adequate)
[2022-12-05 16:21] LABS: Hypochromasia 1+ (NORMAL); Ovalocytes 1+ (NORMAL); Schistocytes None Seen (NORMAL)
--- NOTE | 2022-12-05 18:59 | ED.GENADULT ---
HPI - General Adult General Chief complaint: Shortness of Breath/Dyspnea Stated complaint: SOB, COPD GOT NEB BY EMS Time Seen by Provider: 12/05/22 18:42 History of Present Illness HPI narrative: Ms. Lang is an 82-year-old female who presented to the emergency room with complaints of increasing shortness of breath over the last week. Patient states that she has not been able to use her CPAP recently secondary to the fact that is no longer working and she is waiting for new equipment. Patient states that over the last week she has had dyspnea on exertion today she noticed that she was short of breath at rest. Patient states she does have a rescue inhaler at home that she has never utilized, but today she did use it and felt mildly improved. She does live in an assisted living and the assisted living decided to call EMS for her shortness of breath. Patient states that she received a breathing treatment EN route to the hospital and she feels significantly improved. She states that she is not sure why the assisted living did call EMS. Patient denies any chest pain, orthopnea, PND, fever, or chills. Patient states she has been vaccinated for COVID-19 and has also had COVID-19 in the past. Patient states that she has been vaccinated for influenza. Patient states that she does take [place] 10/325 mg for chronic pain and is going to miss a dose of if she is not discharged soon, so she would like to have a dose of her [place] while she is in the emergency room. Related Data Home Medications Medication Instructions Recorded Confirmed aspirin 81 mg tablet,delayed 81 mg PO DAILY 11/26/19 09/03/21 release [place] 3 Fish Oil 100 mg PO DAILY 07/09/21 09/03/21 calcium carbonate 600 mg-vitamin 1 tablet PO DAILY 07/09/21 09/03/21 D3 10 mcg (400 unit) tablet (Calcium with Vitamin D) fluticasone fur. 100 mcg-umeclid 1 inh inhalation DAILY 07/10/21 09/03/21 62.5 mcg-vilant 25 mcg inhalat.powder (Trelegy Ellipta) allopurinol 100 mg tablet 100 mg PO DAILY 09/03/21 09/03/21 atorvastatin 10 mg tablet 10 mg PO DAILY 09/03/21 09/03/21 flecainide 100 mg tablet 100 mg PO Q12H 09/03/21 09/03/21 leflunomide 20 mg tablet 20 mg PO DAILY 09/03/21 09/03/21 levothyroxine 75 mcg tablet 75 mcg PO DAILY 09/03/21 09/03/21 (Synthroid) prednisone 5 mg tablet 9 mg PO DAILY 10/16/22 Allergies Allergy/AdvReac Type Severity Reaction Status Date / Time No Known Allergies Allergy Unknown Verified 10/16/22 09:13 Review of Systems Review of Systems: A 12 point review of systems was completed patient all pertinent positive and negative per HPI the remainder are unremarkable. [facility] Past Medical History Medical History Essential (primary) hypertension Gastroesophageal reflux disease Gout High cholesterol Hypothyroidism Obstructive sleep apnea on CPAP Paroxysmal atrial fibrillation Primary osteoarthritis of left knee Strabismus T12 compression fracture Temporal arteritis Surgical History Surgical History History of arthroscopy of right knee (2019) History of cataract extraction History of thyroidectomy History of tonsillectomy History of tubal ligation Family History Family History Father Acute myocardial infarction Family history of cardiovascular disease Family history of sudden , Onset Age: 46 Family history of elevated blood lipids Family history of coronary artery disease Grandparent Diabetes mellitus Family history of coronary artery disease Family history of malignant neoplasm of breast in first degree relative Mother Family history of glaucoma Hypertension Family history of elevated blood lipids Sibling Hypertension Social History Social History Social History: Surrogate decision maker: Chris Lang,
[2022-12-05] MEDS: HYDROcodone/acetaminophen (*CRX) 10-325 MG TABLET 1 TAB PO (19:29)
[2022-12-05 20:29] LABS: NT Pro B Type Natriuretic Pept 350 pg/mL (5-100)
[2022-12-05 22:30] LABS: Influenza A QL RT-PCR Negative (Negative); Influenza B QL RT-PCR Negative (Negative); RSV RNA, RT-PCR Negative (Negative); SARS-CoV-2 RNA PCR Negative
== END 2022-12-05 23:01 ==
PROVIDERS: Emergency Medicine; Emergency Provider Nurse Practitioner Adult Health; PCP Family Medicine
DX: J40 Bronchitis, not specified as acute or chronic (principal); Z20.822 Contact with and (suspected) exposure to COVID-19; I10 Essential (primary) hypertension; E78.00 Pure hypercholesterolemia, unspecified; I48.0 Paroxysmal atrial fibrillation; E89.0 Postprocedural hypothyroidism; M17.12 Unilateral primary osteoarthritis, left knee; M10.9 Gout, unspecified; K21.9 Gastro-esophageal reflux disease without esophagitis; Z98.49 Cataract extraction status, unspecified eye; Z77.22 Contact with and (suspected) exposure to environmental tobacco smoke (acute) (chronic); R94.31 Abnormal electrocardiogram [ECG] [EKG]
CPT/HCPCS: 36415; 71045; 71046; 80053; 83880; 85025; 87637; 93005; 99284; A9270

== ENCOUNTER 2022-12-14 13:27 | Outpatient (CLI) | payer MEDICARE, SELFPAY ==
--- NOTE | ~2022-12-14 | US_ITS ---
EXAMINATION: US venous doppler [facility] DATE: 12/14/2022 14:31 INDICATION: Lower limb swelling. Abnormal results of pulmonary function studies. TECHNIQUE: Grayscale ultrasound images without and with compression and Doppler ultrasound images of the bilateral lower extremity veins were obtained. COMPARISON: Ultrasound 05/25/2021 FINDINGS: The visualized portions of right common femoral vein, profunda (deep) femoral vein, femoral vein, pop liteal vein, peroneal veins, posterior tibial veins, and greater saphenous vein outflow are patent. The visualized portions of left common femoral vein, profunda femoral vein, femoral vein, popliteal v ein, peroneal veins, posterior tibial veins, and greater saphenous vein outflow are patent. There is a moderate-sized Bryan's cyst. IMPRESSION: 1. No deep venous thrombosis. 2. Moderate-sized left Bryan's cyst. Reviewed, dictated and finalized at location A. INE FLIGHT ATTENDANT
--- NOTE | ~2022-12-14 | NM_ITS ---
EXAMINATION: NM pulmonary perfusion DATE: 12/14/2022 14:21 INDICATION: Shortness of breath. TECHNIQUE: 4.7 mCi Tc-99m MAA was administered intravenously for perfusion images. Scintigraphic elizabet ges of the chest were obtained. COMPARISON: Chest 2 views 12/14/2022, CT thoracic spine 09/04/2022 FINDINGS: Perfusion images show small defects bilaterally. There are moderate-sized defects in the upper lobes. IMPRESSION: 1. Nondiagnostic (intermediate probability for pulmonary embolism). Reviewed, dictated and finalized at location A. ORATE TREASURY ANALYST
--- NOTE | ~2022-12-14 | XR_ITS ---
XR chest 2V DATE: 12/14/2022 13:50 INDICATION: Acute bronchiolitis. Cough. TECHNIQUE: AP and lateral views COMPARISON: 12/15/2022 AP and lateral chest FINDINGS: Normal heart size. Aortic calcification. Moderate hiatal hernia. Mild discoid atelectasis or scarring in the left lower lung, primarily lingular. No interval pulmonary infiltrate or consolidation, pleural effusion, pulmonary vascular congestion, a denopathy or pneumothorax or other significant change since 12/05/2022 IMPRESSION: No significant change since 12/15/2022 Reviewed, dictated and finalized at location A. T SERVICES DIRECTOR
== END 2022-12-14 13:28 | disposition home or self-care (01) ==
PROVIDERS: PCP Family Medicine; Visit Provider Internal Medicine Critical Care Medicine
DX: R06.02 Shortness of breath (principal); R94.2 Abnormal results of pulmonary function studies; J21.9 Acute bronchiolitis, unspecified; M71.22 Synovial cyst of popliteal space [Baker], left knee
CPT/HCPCS: 71046; 78580; 93970; A9540

== ENCOUNTER 2023-01-09 12:48 | Outpatient (CLI) | payer MEDICARE, SELFPAY ==
--- NOTE | ~2023-01-09 | MR_ITS ---
EXAMINATION: MR lumbar spine wo con DATE: 01/09/2023 14:01 INDICATION: Low back pain. TECHNIQUE: Magnetic resonance imaging (MRI) of the lumbar spine was performed without intravenous con trast. Sequences included sagittal T2-weighted FSE, sagittal T2-weighted FS FSE, sagittal T1-weighted FSE, and axial T2-weighted FSE. COMPARISON: Lumbar spine MRI 08/03/2021 FINDINGS: There is 17 degrees levoscoliosis of lumbar spine. There is 3 mm retrolisthesis of T12 on L 1 and 5 mm retrolisthesis of L1 on L2. There is 3 mm anterolisthesis of L3 on L4 and L4 on L5 and 7 m m anterolisthesis of L5 on S1. There is a chronic compression fracture of T12 with 1/5 loss of height . There is a chronic burst fracture of L1 with 2/5 loss of height and retropulsion of bone 2 mm into central spinal canal. There is a chronic burst fracture of L3 with 2/5 loss of height. There is mild chronic height loss of L4 and L5 vertebral bodies. There is severely decreased disc height at T11-T12 , T12-L1, L1-L2, and L2-L3, moderately decreased disc height at L3-L4, and severely decreased disc he ight at L4-L5 and L5-S1. The distal spinal cord signal intensity is normal. The conus medullaris is a t L2. The following disc levels are specifically discussed: L1-L2: The disc is bulging and has an annular fissure. There is severe bilateral facet joint osteoart hritis. There is severe right and moderate left neural foraminal stenosis. There is mild central jagdish l stenosis. L2-L3: The disc is bulging and has an annular fissure. There is severe bilateral facet joint osteoart hritis. There is mild bilateral neural foraminal stenosis. There is mild central canal stenosis. L3-L4: The disc is bulging with superimposed right foraminal extrusion. There is severe bilateral fac et joint osteoarthritis. There is moderate right and mild left neural foraminal stenosis. There is mi ld central canal stenosis. L4-L5: The disc is bulging and has an annular fissure. There is severe bilateral facet joint osteoart hritis. There is mild bilateral neural foraminal stenosis. There is mild central canal stenosis. L5-S1: The disc does not extend beyond the endplate margin. There is severe bilateral facet joint ost eoarthritis. There is mild bilateral neural foraminal stenosis. There is no central canal stenosis. IMPRESSION: 1. Severe lumbar spondylosis, worsened from 08/03/2021. 2. Lumbar levoscoliosis. Reviewed, dictated and finalized at location A. NCT PROFESSOR OF LAW
== END 2023-01-09 12:49 | disposition home or self-care (01) ==
PROVIDERS: PCP Family Medicine; Visit Provider Anesthesiology Pain Medicine
DX: M47.896 Other spondylosis, lumbar region (principal)
CPT/HCPCS: 72148

== ENCOUNTER 2023-02-03 14:42 | Inpatient (IN) | payer MEDICARE, SELFPAY ==
[2023-02-03] VITALS (24 sets, daily range): BP systolic 86–177; BP diastolic 55–122; PULSE 16–168; RESP 16–39; TEMP 36.9–39.3; O2SAT 85–100; BMI 33.7
--- NOTE | ~2023-02-03 | CT_ITS ---
EXAMINATION: CT diagnostic chest w con DATE: 02/03/2023 18:17 INDICATION: Abnormal chest x-ray TECHNIQUE: Transaxial computed tomographic images of the chest were obtained after the administration of 75 cc of Omnipaque 350 intravenous contrast. The dose-length product (DLP) was 646.02 mGy-cm. Ite rative reconstruction was used. COMPARISON: 07/19/2017, 09/04/2022 FINDINGS: There is a 7.4 x 5.3 cm mass of the left lower lobe not seen on the comparison dated 022. There are patchy airspace opacities of the left lung and right upper lobe. There is a small left pleural effusion. No pneumothorax is identified. There is mild left hilar lymphadenopathy. Calcified coronary artery atherosclerosis is noted. The heart size is normal. The endotracheal and nasogastric tubes are in adequate position. There is a small sliding hiatal hernia. There is severe thoracic spo ndylosis. IMPRESSION: 1. Left lower lobe mass and patchy bilateral airspace opacities of the lungs. Given the relatively sh ort interval between comparison examinations, findings are most consistent with multifocal pneumonia. Reviewed, dictated and finalized at location F. TICK MOLDER IMPRESSION: 1. Left lower lobe mass and patchy bilateral airspace opacities of the lungs. G iven the relatively short interval between comparison examinations, findings ar e most consistent with multifocal pneumonia.
--- NOTE | ~2023-02-03 | XR_ITS ---
EXAMINATION: XR chest 1V portable DATE: 02/05/2023 06:29 INDICATION: Respiratory failure TECHNIQUE: frontal view of the chest was obtained. COMPARISON: Chest radiograph dated 02/04/2023 FINDINGS: Endotracheal tube tip 3.9 cm above the nancy. Nasogastric tube extends below the left hemidiaphragm with distal tip collimated off the study. Right internal jugular central venous catheter with distal tip at the midsuperior vena cava. No significant change in scattered bilateral patchy airspace opacities throughout both lungs. No pneu mothorax or definitive pleural effusion. Heart size is normal. IMPRESSION: 1. No significant change in scattered bilateral patchy airspace opacities consistent with pneumonia. Reviewed, dictated and finalized at location A. NOGRAPHER PHYSICAL IMPRESSION: 1. No significant change in scattered bilateral patchy airspace opacities consi stent with pneumonia.
--- NOTE | ~2023-02-03 | CT_ITS ---
EXAMINATION: CT chest abdomen pelvis wo con DATE: 02/10/2023 08:42 INDICATION: Sepsis. Drop in hemoglobin. TECHNIQUE: Computed tomography (CT) of the chest, abdomen, and pelvis was performed without intraveno us contrast. Automated exposure control and iterative reconstruction technique were employed. The dos e-length product was 1811.74 mGy-cm. COMPARISON: Chest CT dated 02/03/2023 FINDINGS: CHEST CT: Calcified nodule in the right upper lobe consistent with old granulomatous disease. Small posterior l ayering left pleural effusion with slightly greater than simple fluid attenuation, likely Date . Persistent consolidation in the dependent left lower lobe likely combination of atelectasis an d pneumonia. Additional scattered patchy groundglass opacities throughout both lungs which could repr esent additional pneumonia or pulmonary edema. Heart size is normal. Atherosclerotic coronary artery calcifications. No pericardial effusion. Thoracic aorta is normal in caliber. Endotracheal tube tip 2 .8 cm above the nancy. Right internal jugular central venous catheter with distal tip at the caudal superior vena cava. Moderate thoracic spondylosis. ABDOMEN/PELVIS CT: Moderate-sized sliding-type hiatal hernia. Nasogastric tube tip at the gastric antrum. Liver, gallbla dder, spleen, bilateral adrenal glands and kidneys are normal. Moderate fatty atrophy of the pancreas . There are a few sigmoid diverticula without adjacent inflammatory stranding to suggest diverticulit is. Small bowel and appendix are normal. Vicente catheter within the decompressed bladder. Large left p elvic retroperitoneal hematoma which measures approximately 12 x 11 x 10 cm and which displaces the b ladder and uterus to the right. Additional smaller amount of intramuscular hematoma within the left o bturator internus muscle which may represent the etiology of the hemorrhage. No free intraperitoneal gas or fluid. Age-indeterminate T12, L1 and L3 compression fractures. Mild lumbar levocurvature with moderate spondylosis. IMPRESSION: 1. Left obturator internus intramuscular hematoma with larger 12 x 11 x 10 cm retroperitoneal hematom a in the left hemipelvis. 2. Left lower lobe consolidation likely combination of atelectasis and pneumonia with small likely ex udative left pleural effusion. 2. Additional scattered bilateral patchy airspace opacities which could represent additional pneumoni a or pulmonary edema. 3. Cardiomegaly. 4. Moderate-sized hiatal hernia. 5. Age-indeterminate T12, L1 and L3 compression fractures. Reviewed, dictated and finalized at location A. IMPRESSION: 1. Left obturator internus intramuscular hematoma with larger 12 x 11 x 10 cm r etroperitoneal hematoma in the left hemipelvis. 2. Left lower lobe consolidation likely combination of atelectasis and pneumoni a with small likely exudative left pleural effusion. 2. Additional scattered bilateral patchy airspace opacities which could represe nt additional pneumonia or pulmonary edema. 3. Cardiomegaly. 4. Moderate-sized hiatal hernia. 5. Age-indeterminate T12, L1 and L3 compression fractures.
--- NOTE | ~2023-02-03 | US_ITS ---
EXAMINATION: US venous doppler [facility] DATE: 02/04/2023 09:26 INDICATION: Lower limb swelling. TECHNIQUE: Grayscale ultrasound images without and with compression and Doppler ultrasound images of the bilateral lower extremity veins were obtained. COMPARISON: Ultrasound 12/14/2022 FINDINGS: The visualized portions of right common femoral vein, profunda (deep) femoral vein, femoral vein, pop liteal vein, and greater saphenous vein outflow are patent. There is thrombus in the right posterior tibial and peroneal veins. The visualized portions of left common femoral vein, profunda femoral vein, femoral vein, popliteal v ein, and greater saphenous vein outflow are patent. The calf veins are not well visualized. IMPRESSION: 1. Deep vein thrombosis involving the right posterior tibial and peroneal veins. I call this result to Liberty Paz. Reviewed, dictated and finalized at location D. SITE SOIL EVALUATOR IMPRESSION: 1. Deep vein thrombosis involving the right posterior tibial and peroneal vein s. I call this result to Liberty Paz.
--- NOTE | ~2023-02-03 | XR_ITS ---
Portable chest x-ray Comparison: 02/07/2023 Clinical History: Respiratory failure Findings: Endotracheal tube, NG tube, and right IJ line are in satisfactory position. Small left ple ural effusion present. There is central/perihilar hazy airspace disease, left worse than right, simil ar to prior exam. Cardiomediastinal silhouette is stable. Bones and soft tissues are unremarkable. Impression: Bilateral pulmonary airspace disease is similar to prior exam. Correlate for moderate central pulmona ry edema versus infection. Small left pleural effusion. Support tubes, as above. Reviewed, dictated and finalized at [facility]. IC HEALTH OUTREACH WORKER Impression: Bilateral pulmonary airspace disease is similar to prior exam. Correlate for mo derate central pulmonary edema versus infection. Small left pleural effusion. Support tubes, as above.
--- NOTE | ~2023-02-03 | XR_ITS ---
EXAMINATION: XR abdomen NG/feed tube insert INDICATION: Nasogastric tube insertion TECHNIQUE: Portable AP KUB-NG at 1735 hours COMPARISON: None available FINDINGS: The nasogastric tube is in the stomach. The bowel gas pattern is unremarkable. A masslike o pacity is again seen in the left perihilar region. IMPRESSION: 1. Nasogastric tube in the stomach. Reviewed, dictated and finalized at location F. CAL TRANSCRIPTION EDITOR
--- NOTE | ~2023-02-03 | XR_ITS ---
EXAMINATION: XR chest 1V portable DATE: 02/10/2023 05:57 INDICATION: Respiratory failure TECHNIQUE: frontal view of the chest was obtained. COMPARISON: Chest radiograph dated 02/09/2023 FINDINGS: Endotracheal tube tip cm above the nancy. Nasogastric tube extends into the stomach and beyond the i nferior margin of the [id number]. Right internal jugular central venous catheter with distal tip i n the mid superior vena cava. No significant interval change in bilateral diffuse interstitial and scattered airspace opacities. Sm all left pleural effusion. No pneumothorax or right-sided pleural effusion. Heart size is normal. IMPRESSION: 1. No significant change in diffuse bilateral lung disease most likely multifocal pneumonia with diff erential including pulmonary edema 2. Small left pleural effusion. Reviewed, dictated and finalized at location A. IMPRESSION: 1. No significant change in diffuse bilateral lung disease most likely multifoc al pneumonia with differential including pulmonary edema 2. Small left pleural effusion.
--- NOTE | ~2023-02-03 | CT_ITS ---
EXAMINATION: CT brain wo con INDICATION: Transient alteration of awareness COMPARISON: None TECHNIQUE: Standard unenhanced head CT. The dose-length product (DLP) was 681.00 mGy-cm. The mA was a djusted according to patient size. Iterative reconstruction technique was employed. FINDINGS: There is no acute intraparenchymal hemorrhage. No evidence of mass lesion. No evidence of a cute infarction. There is mild periventricular and subcortical hypodensity probably related to small vessel ischemic disease. There is mild prominence of the sulci and ventricles related to cerebral atr ophy. Intracranial calcified cerebral atherosclerosis is noted. There are no extra-axial collections. There is no mass effect or midline shift. The orbits and soft tissues are unremarkable. There is mil d mucosal thickening of the paranasal sinuses. There is frontal skull hyperostosis (hyperostosis fron talis interna), a normal variant. IMPRESSION: 1. No acute intracranial abnormality. 2. Age related findings. Reviewed, dictated and finalized at location F. LATORY COMPLIANCE ENGINEER
--- NOTE | ~2023-02-03 | XR_ITS ---
EXAMINATION: XR chest 1V portable DATE: 02/09/2023 05:42 INDICATION: Respiratory failure TECHNIQUE: Upright AP view of the chest was obtained. COMPARISON: Chest radiograph dated 02/08/2023 FINDINGS: Endotracheal tube tip 3.4 cm above the nancy. Nasogastric tube tip in proximal side port in the body of the stomach. Right internal jugular central venous catheter tip at the midsuperior vena cava. Diffuse interstitial and scattered bilateral mild patchy airspace opacities without significant richard e in the right lung with some interval improvement in the left mid and lower lung zones. No pneumotho rax or definitive pleural effusion. Heart size is normal. Severe degenerative skeletal changes in the spine and shoulders. IMPRESSION: 1. Diffuse bilateral lung disease most likely multifocal pneumonia with differential including pulmon vernell edema with some improvement in the left mid and lower lung zones. Reviewed, dictated and finalized at location A. PMENT SERVICE ENGINEER IMPRESSION: 1. Diffuse bilateral lung disease most likely multifocal pneumonia with differe ntial including pulmonary edema with some improvement in the left mid and lower lung zones.
--- NOTE | ~2023-02-03 | XR_ITS ---
EXAMINATION: XR chest 1V portable INDICATION: Shortness of breath TECHNIQUE: Portable AP chest at 1533 hours COMPARISON: None available FINDINGS: There is a left perihilar masslike opacity. No pleural effusion or pneumothorax. The heart size is normal. IMPRESSION: 1. Left perihilar masslike opacity which could reflect infection versus malignancy. Further evaluatio n with CT of the chest is recommended. Reviewed, dictated and finalized at location F. HOLOGIST SOCIAL IMPRESSION: 1. Left perihilar masslike opacity which could reflect infection versus maligna ncy. Further evaluation with CT of the chest is recommended.
--- NOTE | ~2023-02-03 | XR_ITS ---
Portable chest x-ray Comparison: 02/06/2023 Clinical History: Respiratory failure Findings: Endotracheal tube, NG tube, and right IJ line remain in place. Moderate to advanced pulmon vernell pattern is present with small left pleural effusion. Cardiomediastinal silhouette is stable. Bon es and soft tissues are unremarkable. Impression: Moderate to advanced pulmonary edema pattern with small left pleural effusion. Correlate clinically f or pneumonia. Support tubes, as above. Reviewed, dictated and finalized at location . K WHEELER Impression: Moderate to advanced pulmonary edema pattern with small left pleural effusion. Correlate clinically for pneumonia. Support tubes, as above.
--- NOTE | ~2023-02-03 | XR_ITS ---
EXAMINATION: XR chest 1V portable DATE: 02/04/2023 02:16 INDICATION: Central line placement TECHNIQUE: frontal view of the chest was obtained. COMPARISON: Chest radiograph and CT dated 02/03/2023 FINDINGS: Endotracheal tube tip 3.9 cm above the nancy. Nasogastric tube extends below the left hemidiaphragm with distal tip collimated off the study. Right internal jugular central venous catheter with distal tip at the midsuperior vena cava. Interval increase in patchy airspace opacities most prominent in the left mid to lower lung zone to l giancarlo degree at the right upper and lower lung zones. No pleural effusion or pneumothorax. Heart size is normal. Right rotator cuff arthropathy. IMPRESSION: 1. Lines and tubes in expected position. No pneumothorax. 2. Increasing patchy bilateral lung disease consistent with pneumonia. Reviewed, dictated and finalized at location A. ISITION COST ESTIMATOR
--- NOTE | ~2023-02-03 | XR_ITS ---
EXAMINATION: XR chest ET placement INDICATION: Respiratory failure TECHNIQUE: Portable AP chest at 1605 hours COMPARISON: 1533 hours FINDINGS: An endotracheal tube has been inserted which ends 4.6 cm above the nancy. A masslike left perihilar opacity is again seen. No pleural effusion or pneumothorax. The heart size is normal. IMPRESSION: 1. Endotracheal tube approximately 4.6 cm above the nancy. 2. Left perihilar masslike opacity. Further evaluation with CT of the chest is recommended. Reviewed, dictated and finalized at location F. TESTER
--- NOTE | ~2023-02-03 | XR_ITS ---
EXAMINATION: XR chest 1V portable DATE: 02/06/2023 05:24 INDICATION: Respiratory failure TECHNIQUE: frontal view of the chest was obtained. COMPARISON: Chest radiograph dated 02/05/2023 FINDINGS: Endotracheal tube tip 2.7 cm above the nancy. Nasogastric tube extends below the left hemidiaphragm with distal tip collimated off the study. Right internal jugular central venous catheter with distal tip at the midsuperior vena cava. No significant change in bilateral patchy airspace opacities most prominent in the left mid and lower lung zone. No pneumothorax. Small left pleural effusion. Heart size is normal. IMPRESSION: 1. No significant change in scattered bilateral patchy airspace opacities consistent with pneumonia. 2. Small left pleural effusion. Reviewed, dictated and finalized at location A. RONMENTAL MANAGER IMPRESSION: 1. No significant change in scattered bilateral patchy airspace opacities consi stent with pneumonia. 2. Small left pleural effusion.
--- NOTE | 2023-02-03 14:53 | ED.SOB ---
HPI - SOB/Dyspnea General Chief Complaint: Shortness of Breath/Dyspnea <Liz Rich PA-C - Last Filed: 02/03/23 21:37> Stated Complaint: SOB <Liz Rich PA-C - Last Filed: 02/03/23 21:37> Time Seen by Provider: 02/03/23 14:49 <Liz Rich PA-C - Last Filed: 02/03/23 21:37> History of Present Illness HPI Narrative: 82-year-old female with a history of COPD and MEGAN on CPAP here for evaluation of dyspnea for the past 2 days. Patient arrives on 6 L nasal cannula saturating in the low 90s. Denies history of home O2 requirement. She has been using her inhalers without relief of her symptoms and received nebulizer treatment via EMS without improvement. Reports productive cough. Denies any fevers or chills, chest pain. She has chronic leg swelling. Follows with Dr. Gilbert from pulmonology. <Liz Rich PA-C - Last Filed: 02/03/23 21:37> Related Data Home Medications: Home Medications Medication Instructions Recorded Confirmed [place] 3 Fish Oil 100 mg PO DAILY 07/09/21 09/03/21 calcium carbonate 600 mg-vitamin 1 tablet PO DAILY 07/09/21 09/03/21 D3 10 mcg (400 unit) tablet (Calcium with Vitamin D) fluticasone fur. 100 mcg-umeclid 1 inh inhalation DAILY 07/10/21 09/03/21 62.5 mcg-vilant 25 mcg inhalat.powder (Trelegy Ellipta) allopurinol 100 mg tablet 100 mg PO DAILY 09/03/21 09/03/21 atorvastatin 10 mg tablet 10 mg PO DAILY 09/03/21 09/03/21 flecainide 100 mg tablet 100 mg PO Q12H 09/03/21 09/03/21 levothyroxine 75 mcg tablet 75 mcg PO DAILY 09/03/21 09/03/21 (Synthroid) acetaminophen 325 mg capsule 650 mg PO Q6H PRN Pain 1-5 02/03/23 02/03/23 aspirin 81 mg chewable tablet 81 mg PO DAILY 02/03/23 02/03/23 cholecalciferol (vitamin D3) 25 2,000 unit PO DAILY 02/03/23 02/03/23 mcg (1,000 unit) tablet (Vitamin D3) dextromethorphan-guaifenesin 30 1 tablet PO Q12H PRN Congestion 02/03/23 02/03/23 mg-600 mg tablet extended pycgswu30 hr (Mucus DM) docusate sodium 100 mg capsule 100 mg PO DAILY 02/03/23 02/03/23 (Colace) furosemide 20 mg tablet 20 mg PO DAILY 02/03/23 02/03/23 hydrocodone 10 mg-acetaminophen 1 tablet PO Q4H PRN pain 6-10 02/03/23 02/03/23 325 mg tablet menthol 0.44 %-zinc oxide 20.6 % 1 applic topical BID 02/03/23 02/03/23 topical ointment (Calmoseptine) menthol 5 % topical gel (Biofreeze 1 ea topical DIRECTED PRN Pain 02/03/23 02/03/23 (menthol)) polyethylene glycol 3350 17 gram 17 g PO QAM PRN Constipation 02/03/23 02/03/23 oral powder packet (Miralax) prednisone 1 mg tablet 9 mg PO DAILY 02/03/23 02/03/23 risedronate 35 mg tablet 35 mg PO WEEKLY 02/03/23 02/03/23 <Liz Rich PA-C - Last Filed: 02/03/23 21:37> Allergies/Adverse Reactions: Allergies Allergy/AdvReac Type Severity Reaction Status Date / Time No Known Allergies Allergy Unknown Verified 02/03/23 20:48 <Liz Rich PA-C - Last Filed: 02/03/23 21:37> Review of Systems Review of Systems: Gen: Denies fevers or chills Eyes: Denies eye pain or visual change ENT: Denies congestion Respiratory: Reports shortness of breath and cough CV: Denies chest pain or palpitations GI: Denies abdominal pain nausea, emesis or diarrhea : denies burning, urgency, frequency or hematuria Musculoskeletal: Denies back pain or muscle pain Neuro: Denies numbness, tingling, weakness or focal weakness Skin: Denies rash Except as documented, all other systems reviewed and negative <Liz Rich PA-C - Last Filed: 02/03/23 21:37> [facility] Past Medical History Medical History: Medical History Chronic shortness of breath Essential (primary) hypertension Gastroesophageal reflux disease Gout High cholesterol Hypothyroidism Obstructive sleep apnea on CPAP Paroxysmal atrial fibrillation Primary osteoarthritis of left knee Strabismus T12 compression fracture Te
[2023-02-03 15:08] LABS: Basophils Percent Auto 0.2 % (0.2-1.2); Hematocrit 33.4 % (37.0-47.0); Hemoglobin 9.5 g/dL (12.0-15.0); Immature Granulocyte Absolute 0.48 K/mm3 (0.00-0.031); Immature Granulocyte Percent A 3.5 % (0-0.5); Lymphocytes Absolute Auto 0.82 K/mm3 (0.9-3.2); Lymphocytes Percent Auto 6.1 % (18.3-44.2); Mean Corpuscular HGB Conc 28.4 g/dl (32-36); Mean Corpuscular Hemoglobin 25.7 pg (26-34); Mean Corpuscular Volume 90.3 fl (80-100); Mean Platelet Volume 10.5 fl (7.4-10.4); Monocytes Absolute Auto 3.2 K/mm3 (0.1-0.6); Monocytes Percent Auto 23.5 % (2.6-8.5); Neutrophils Percent Auto 66.7 % (45.5-73.1); Platelet Count Result 142 k/mm3 (150-375); Red Cell Distribution Width 18.3 % (11.5-14.5); White Blood Count 13.5 K/mm3 (4.5-10.0)
[2023-02-03] MEDS: ALBUTEROL SULFATE NEB 2.5 MG/3 ML INH 10 MG INHALATION (15:18)
[2023-02-03] MEDS: IPRATROPIUM BR 0.02% INH SOLN 0.5 MG/2.5 ML VIAL 1 MG INHALATION (15:19)
[2023-02-03 15:20] LABS: INR 1.2; Lactic Acid Reflex 1.9 mmol/L (0.7-2.0); Prothrombin Time 14.5 Seconds (11.1-14.7)
[2023-02-03 15:22] LABS: Alanine Aminotransferase 21 U/L (6-35); Albumin Level 4.5 g/dL (3.5-5.1); Alkaline Phosphatase 116 U/L (38-126); Anion Gap 9 mmol/L (8-16); Aspartate Amino Transferase 28 U/L (14-36); Bilirubin,Total 0.9 mg/dL (0.2-1.3); Blood Urea Nitrogen 13 mg/dL (7-17); Calcium 9.2 mg/dL (8.4-10.2); Carbon Dioxide 29 mmol/L (22-30); Chloride 98 mmol/L (98-107); Estimated CRCL calculation 49 ml/min; Estimated Glomerular Filt Rate 60; Glucose 125 mg/dL (65-110); Magnesium 1.6 mg/dL (1.6-2.3); Potassium 4.5 mmol/L (3.4-5.0); Sodium 136 mmol/L (137-145)
[2023-02-03] MEDS: methylPREDNISolone SOD SUCC 125 MG VIAL IV PUSH (15:24)
[2023-02-03 15:31] LABS: Base Excess ABG 1.7 mEq/l (+/-2.0); Fractional Inspired Oxygen 62 %; HCO3 ABG 25.9 mEq/l (22.0-26.0); Oxygen Content ABG 15.9 %vol (16.0-22.0); Oxygen Saturation ABG 99.9 % (95.0-100.0); Oxyhemoglobin 98.3 % THb (90.0-100.0); PCO2 ABG 39.3 mmHg (35.0-45.0); PO2 ABG 437.3 mmHg (80.0-100.0); Total Hemoglobin 10.6 g/dL (12.0-18.0); pH ABG 7.437 (7.350-7.450)
[2023-02-03 15:33] LABS: Device NASAL CANNULA; Modified Allen's Test Pass; Site Drawn RIGHT RADIAL
[2023-02-03 15:33] LABS: NT Pro B Type Natriuretic Pept 581 pg/mL (19.9-100); Troponin I < 0.012 ng/mL (0.000-0.034)
[2023-02-03] MEDS: AMIODARONE 150 MG/D5W 100 ML 150 MG/100 ML BAG 600 MG IV CONT (15:50)
[2023-02-03] MEDS: AMIODARONE 360 MG/D5W 200 ML 360 MG/200 ML BAG 33.33 MG IV CONT (16:00)
--- NOTE | 2023-02-03 16:17 | PC.NURSE ---
Pt in V-tach, Dr Agosto at bedside ready to intubate pt. 15:57 30 mg of Etomidate given 15:57 100mg of Succinylcholine 15:59 2mg of Magnesium given 1558 pt intubated 7 1/2 and 25 at the [facility].
[2023-02-03] MEDS: MIDAZOLAM HCL (*CRX) 2 MG/2 ML VIAL IV PUSH ×2 (16:49→19:08)
[2023-02-03 17:00] LABS: Alveolar/Arterial O2 Gradient 138.3 mmHg; Arterial Blood Gas PEEP 8 cmH2O; Arterial Blood Gas Vent Mode CMV; Arterial Blood Gas Ventilator rate 16 /MIN; Base Excess ABG -1.3 mEq/l (+/-2.0); Device VENTILATOR; Fractional Inspired Oxygen 40 %; HCO3 ABG 23.5 mEq/l (22.0-26.0); Methemoglobin ABG 0.1 %THb (0-1.5); Modified Allen's Test Pass; Oxygen Content ABG 14.1 %vol (16.0-22.0); Oxygen Saturation ABG 97.6 % (95.0-100.0); Oxyhemoglobin 96.1 % THb (90.0-100.0); PCO2 ABG 39.3 mmHg (35.0-45.0); PO2 ABG 101.7 mmHg (80.0-100.0); PO2 FiO2 Ratio Arterial Blood 2.54 %; Reduced Hemoglobin 2.8 %THb (0-5.0); Site Drawn RIGHT RADIAL; Total Hemoglobin 10.3 g/dL (12.0-18.0); pH ABG 7.394 (7.350-7.450)
[2023-02-03 17:01] LABS: Arterial Blood Gas Tidal Volume 400 ml
[2023-02-03] MEDS: MIDAZOLAM 100MG/NS 100ML(*CRX) 100 MG/100 ML BAG IV CONT (17:16)
[2023-02-03] MEDS: FENTANYL 2,500MCG/NS250ML(*CRX 2,500 MCG/250 ML BAG IV CONT (17:17)
[2023-02-03] MEDS: LACTATED RINGERS 1,000 ML 999 ML IV CONT (19:14)
[2023-02-03 19:31] LABS: Appearance Urine Clear (Clear); Bilirubin Urine Negative (Negative); Blood Urine Negative (Negative); Color Urine Yellow (Yellow); Glucose Urine UA Negative (Negative); Ketones Urine Negative (Negative); Leukocyte Esterase Ur Negative LEU/UL (Negative); Nitrate Urine Negative (Negative); Protein Urine Negative (Negative); Specific Grav Ur 1.015 (1.001-1.035); Urobilinogen Urine 0.2 mg/dL (<2.0)
--- NOTE | 2023-02-03 19:40 | PM.IMHP ---
H&P: HPI History of Present Illness Date/Time: 02/03/23 19:40 Chief Complaint: Shortness of breath. Narrative: This is an 82-year-old female with COPD, obstructive sleep apnea, paroxysmal atrial fibrillation, hypertension, dyslipidemia, temporal arteritis, and hypothyroidism who presented to the emergency department via EMS from her assisted living facility for evaluation of shortness of breath. At the time my evaluation she is sedated on mechanical ventilation and at a majority of the following is obtained via a review of her electronic medical records as well as discussions with her daughter who is at bedside. The patient has 3 children and at least 1 of them speaks with her every week. Daughter indicates that she has had issues with worsening shortness of breath the last several months and she has been seeing pulmonology as an outpatient. Pulmonary function testing done on 11/30/2022 showed a restrictive pattern on spirometry with severely reduced lung diffusion capacity. She reportedly had an echocardiogram but I was not able to those results in the computer. I do not see any medications new to the patient listed in her external medication history. In any event she called staff at her facility today with increasing shortness of breath and she was reportedly hypoxic and placed on 5 L. On EMS arrival her SpO2 was 85% on those 5 L. She was transition to BiPAP in the emergency department and an hour long DuoNeb treatment was ordered due to significant wheezing. Shortly after that treatment was started she had recurrent episodes of ventricular tachycardia, some of which were consistent with ventricular tachycardia. With those episodes she seemed to be increasingly confused and decision was made to emergently intubate the patient. She was started on and amiodarone infusion and was given 2 g of magnesium with improvement. Chest CT post intubation showed left lower lobe mass and patchy bilateral airspace opacities of the lungs which are likely safety representative of multifocal pneumonia. She has been started on broad-spectrum antibiotics and is being admitted to the ICU in this setting. Blood pressures have thus far been stable. Review of Systems Review of Systems: Unable to obtain given current clinical condition as detailed above. [facility] Past Medical History Medical History Essential (primary) hypertension Gastroesophageal reflux disease Gout Hyperlipidemia Hypothyroidism Obstructive sleep apnea on CPAP Paroxysmal atrial fibrillation Primary osteoarthritis of left knee Strabismus T12 compression fracture Temporal arteritis Surgical History Surgical History History of arthroscopy of right knee (2019) History of cataract extraction History of thyroidectomy History of tonsillectomy History of tubal ligation Family History Family History Father Acute myocardial infarction Family history of cardiovascular disease Family history of sudden , Onset Age: 46 Family history of elevated blood lipids Family history of coronary artery disease Grandparent Diabetes mellitus Family history of coronary artery disease Family history of malignant neoplasm of breast in first degree relative Mother Family history of glaucoma Hypertension Family history of elevated blood lipids Sibling Hypertension Social History Social History Social History: Surrogate decision maker: Chris Lang, son. Code status: Full code. 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
[2023-02-03 19:50] LABS: Add Urine Microscopic? NO
[2023-02-03 20:09] LABS: Influenza A QL RT-PCR Negative (Negative); Influenza B QL RT-PCR Negative (Negative); SARS-CoV-2 RNA PCR Negative
[2023-02-03 20:20] LABS: Thyroid Stimulating Hormone Reflex 0.967 uIU/mL (0.465-4.68)
--- NOTE | 2023-02-03 20:20 | PC.NURSE ---
This patient, Nidia Lang, was admitted to Intensive Care Unit-6. Patient/family oriented to hospital policies and general routines including ID bracelet, bed and alarms, visiting hours, pain management, procedures, bathroom and other care routines, personal items, smoking policy, room service/diet, and visiting hours. Information on how to activate the Rapid Response Team has been discussed. Patient/Family are encouraged to report perceived risks to care and to ask questions if they do not understand what they are told or what they should do.
[2023-02-03] MEDS: DOXYCYCLINE 100 MG/NS 100 ML 100 MG/100 ML BAG IVPB (20:51)
[2023-02-03] MEDS: LACTATED RINGERS 1,000 ML 150 ML IV CONT (21:05)
[2023-02-03] MEDS: MINERAL OIL/WHITE PETROLATUM OINTMENT 1 APPLIC EACH EYE (21:08)
[2023-02-03] MEDS: AMIODARONE 360 MG/D5W 200 ML 360 MG/200 ML BAG 16.67 MG IV CONT (21:22)
[2023-02-03] MEDS: ACETAMINOPHEN ELIXIR 325 MG/10.15 ML UDC 650 MG FEED TUBE (23:30)
[2023-02-04] VITALS (50 sets, daily range): BP systolic 64–140; BP diastolic 42–70; PULSE 45–82; RESP 20–116; TEMP 36.4–39.3; O2SAT 91–99; BMI 34.4
--- NOTE | 2023-02-04 00:10 | ECHO_ITS ---
Patient Info Name: Nidia Lang Age: 82 years : 1940 Gender: Female Ht: 66 in Wt: 208 lbs BSA: 2.13 m2 HR: 57 bpm BP: 113 / 61 mmHg Heart Rhythm: Sinus Rhythm Exam Date: 02/04/2023 9:52 AM Exam Location: [facility] Pulmonary Patient Status: Inpatient Admit Date: 02/03/2023 Staff Ordering Physician: Radha Mack PA-C Office Professional: Quincy Niño, RACQUEL, RT Attending Provider: Gurmeet Mckeon MD Referring Physician: Martina GERMAN; Exam Type: CA echo dop color flow w con Study Info Indications - V-tach I45.89 - Other specified conduction disorders Complete two-dimensional, color flow and Doppler transthoracic echocardiogram is performed with contrast to opacify the left ventricle and to improve the deliniation of the left ventricle endocardial borders. Strain analysis performed. Summary 1. Left ventricular chamber dimension is normal. 2. There is mildly increased left ventricular wall thickness. 3. Left ventricular systolic function is normal, estimated at 55-60%. 4. There is hypokinesis of the mid inferoseptum, mid inferior, mid anterior and mid anteroseptal barba. 5. The left ventricular diastolic function is grade I diastolic dysfunction. 6. Global longitudinal strain is abnormal at -12 %. 7. Right ventricular systolic function is normal. 8. Left atrial chamber dimension is mildly enlarged. 9. Right atrial chamber dimension is mildly enlarged. 10. The mitral valve annulus is moderately calcified. 11. There is mild to moderate tricuspid valve regurgitation. Left Ventricle There is hypokinesis of the mid inferoseptum, mid inferior, mid anterior and mid anteroseptal barba. Left ventricular chamber dimension is normal. Left ventricular systolic function is normal, estimated at 55-60%. There is mildly increased left ventricular wall thickness. The left ventricular diastolic function is grade I diastolic dysfunction. Global longitudinal strain is abnormal at -12 %. Right Ventricle Right ventricular chamber dimension is not well visualized. Right ventricular systolic function is normal. Left Atria Left atrial chamber dimension is mildly enlarged. Right Atria Right atrial chamber dimension is mildly enlarged. Atrial Septum Intact interatrial septum visualized by color flow imaging. Aortic Valve The aortic valve is not well visualized. There is no aortic valve stenosis. There is no aortic valve regurgitation. Pulmonic Valve The pulmonic valve is not well visualized. Mitral Valve There is no mitral valve stenosis. There is trace mitral valve regurgitation. The mitral valve annulus is moderately calcified. Tricuspid Valve There is mild to moderate tricuspid valve regurgitation. Pericardium/Pleural There is trivial pericardial effusion. Inferior Vena Cava Normal inferior vena cava with <50% collapse upon inspiration consistent with elevated right atrial pressure, 8 mmHg. Aorta The aortic root size at the sinus of Valsalva is normal. There is mild aortic atherosclerosis. Left Ventricular Outflow Tract Name Value Normal LVOT 2D LVOT Diameter 1.99 cm LVOT Doppler LVO
[2023-02-04] MEDS: FUROSEMIDE INJ 40 MG/4 ML VIAL 20 MG IV PUSH (00:20)
[2023-02-04] MEDS: methylPREDNISolone SOD SUCC 40 MG VIAL IV PUSH ×2 (00:49→05:24)
[2023-02-04 01:27] LABS: Iron < 10 ug/dL (37-170)
[2023-02-04] MEDS: ROCURONIUM BROMIDE 50 MG/5 ML VIAL IV PUSH (01:35)
[2023-02-04] MEDS: NOREPINEPHRINE 8 MG/D5W 250 ML 8 MG/250 ML BAG 9.38 MG IV CONT (01:45)
[2023-02-04 01:59] LABS: Thyroid Stimulating Hormone Reflex 0.711 uIU/mL (0.465-4.68)
--- NOTE | 2023-02-04 02:10 | P.PCNBED_ITS ---
Procedures Central Line Placement Right IJ: Central Line Date: 02/04/23 Central Line Time: 01:40 Consent: Nursing staff attempted to with notify the patient's family. We could not reach the patient's family the patient's blood pressures were dropping and her respiratory status was worsening without appropriate sedation and pressors. Subsequently line was placed emergently but under sterile conditions. Time Out Performed: Yes Patient Position: other (Vascular access) Patient placed on monitor/pulse ox: Yes Provider Prep: mask, sterile gown, sterile gloves, Max. sterile barrier precautions, cap and hand hygiene with conventional soap/water or alcohol based hand rub Central line prep: 2% Chlorhexidine scrub Sterile US Technique with sterile gel/sterile probe covers: Yes Central line lumen inserted: triple Macedonian: 7 Length (cm): 16 Depth of Insertion (cm): 15 Post Procedure: sutured in place, good blood return, all ports aspirated, flushed, capped, transparent dressing, securement product and aseptic technique maintained throughout procedure Post procedure x-ray: tip of catheter in good position and no pneumothorax seen (On my review but radiologic interpretation pending) Patient tolerated procedure: well
--- NOTE | 2023-02-04 02:18 | PM.EVENT ---
Event Note Event Note Event Note: 02/04/2023 around midnight Nursing staff notified me while I was in the unit that the patient was a synchronous with the vent. Then noticed frothy pink secretions up from her ET tube. The patient had been admitted for pneumonia and was febrile at the time with temperature greater than 102. Patient's respiratory rate with her over breathing the vent was 29. Patient's initial tidal volume was 400 and rate was 16 with a PEEP of 8. The patient's oxygen saturations were dropping an oxygen requirement increasing. The patient is FiO2 had been increased from 50% to 80% and a relatively rapid interval. I went to evaluate the patient and reviewed the patient's chart. The patient had coarse crackles bilaterally but right worse than left however seemed to have better air movement on the right side. The patient is only 5 ft 2 and subsequent I decreased patient's tidal volume to 350 and increased her rate to 20. Patient's blood pressures at the time of my initial evaluation more 106 over 70s. Nursing staff of patient's secretions from ET tube per due to fluid overload. I did given or for 20 mg of Lasix and requested that nursing staff increased the patient's sedation. The patient was clearly tense and clutching her thigh. She was not following commands. However I was aware that the patient's blood pressure may not old with increased sedation. The patient's fentanyl it been increased to 150 mg and she was already on 4 mg of Versed. Lasix had no effect on the patient's she will add 100 mL of urine output. This does not surprise me as I evaluate the patient's chart after had evaluated another patient and the found the patient had a BNP of only 500. She has no known history of heart failure. She does have COPD and chronic lung disease with frequent pneumonias and has a quite extensive pneumonia. Suspect this secretions from patient's ET tube are more infectious in nature. On re-examination patient has no JVD and minimal to no peripheral edema. Unfortunately the patient is still remained a synchronous with the vent despite increased sedation. Her blood pressures at also dropped into the 70s. I prepared to place a central line to start the patient on Levophed and had felt the patient likely needed paralytic therapy but I requested nursing staff notified the press washer and request further recommendations well I performed the bedside procedure. During the procedure the patient's IJ was easily collapsible. IJ was placed on 1st attempt. The patient the blood pressure did drop into the 50s despite being and vascular position for the procedure. We did start Levophed peripherally until central line was placed. Line was placed and placement confirmed with x-ray. Radiologic interpretation pending on x-ray. Once placement was confirmed Levophed was switched to the central line. The patient's blood pressures is have improved to 83/56 and Levophed is being titrated up to 10. Market Development Analyst gave orders to increase patient's Versed did 6 mg and gave orders for Versed push of 4 mg. The patient also received a dose of rocuronium as I was placing the central line. Patient was still peaking high pressures on the ventilator despite paralytic therapy. Initially nursing staff had placed patient LR on hold. However x-ray post intubation did not demonstrate any overt overload. I have requested nursing staff checked the patient's CVP or perform a cheetah. Given that the patient is having so much a synchronous events with vent CVP would probably be the better option for the patient at this time. I am waiting for this determination. If CVP low her probably increase the patient's fluids back up to 150 mL an hour and or give the patient a bolus. Right now I have the fluids running at 100 mL an hour. Patient remains febrile. 35 minute spent in critical care activities in exclusion of procedure. Due to a high probability of clinically significant, life thre
[2023-02-04] MEDS: MIDAZOLAM HCL (*CRX) 2 MG/2 ML VIAL 4 MG IV PUSH (03:28)
[2023-02-04 03:50] LABS: Percent Iron Saturation < 2 % (20-50)
[2023-02-04 03:50] LABS: Hematocrit 33.7 % (37.0-47.0); Hemoglobin 9.3 g/dL (12.0-15.0); Mean Corpuscular HGB Conc 27.6 g/dl (32-36); Mean Corpuscular Hemoglobin 25.1 pg (26-34); Mean Corpuscular Volume 91.1 fl (80-100); Mean Platelet Volume 11.6 fl (7.4-10.4); Platelet Count Result 160 k/mm3 (150-375); Red Cell Distribution Width 18.1 % (11.5-14.5)
[2023-02-04] MEDS: LACTATED RINGERS 1,000 ML 150 ML (03:51)
[2023-02-04 04:03] LABS: Alanine Aminotransferase 21 U/L (6-35); Albumin Level 3.8 g/dL (3.5-5.1); Alkaline Phosphatase 80 U/L (38-126); Anion Gap 10 mmol/L (8-16); Aspartate Amino Transferase 40 U/L (14-36); Bilirubin,Total 0.6 mg/dL (0.2-1.3); Blood Urea Nitrogen 17 mg/dL (7-17); Carbon Dioxide 23 mmol/L (22-30); Chloride 99 mmol/L (98-107); Estimated CRCL calculation 37 ml/min; Estimated Glomerular Filt Rate 43; Glucose 124 mg/dL (65-110); Potassium 4.5 mmol/L (3.4-5.0); Sodium 132 mmol/L (137-145)
[2023-02-04 04:37] LABS: White Blood Count 59.1 K/mm3 (4.5-10.0)
[2023-02-04 04:39] LABS: Band Neutrophils Percent 17 % (0-6); Hypochromasia 1+ (NORMAL); Lymphocytes Absolute Manual 2.95 K/mm3 (1.1-4.5); Monocytes Absolute Manual 8.86 K/mm3 (0.1-0.90); Monocytes Percent Manual 15 % (3-9); Neutrophils Absolute Manual 47.28 K/mm3 (1.7-7.2); Neutrophils Percent Manual 63 % (46-73); Platelet Estimate Adequate (Adequate); Total Cells Counted 100
[2023-02-04 04:40] LABS: Atypical Lymphocytes Present; Schistocytes None Seen (NORMAL)
[2023-02-04 04:48] LABS: Alveolar/Arterial O2 Gradient 576.4 mmHg; Base Excess ABG -4.8 mEq/l (+/-2.0); Carboxyhemoglobin 0.3 % THb (0-2.0); Fractional Inspired Oxygen 100 %; HCO3 ABG 23.2 mEq/l (22.0-26.0); Methemoglobin ABG 0.3 %THb (0-1.5); Oxygen Content ABG 13.5 %vol (16.0-22.0); Oxygen Saturation ABG 92.9 % (95.0-100.0); Oxyhemoglobin 91.9 % THb (90.0-100.0); PCO2 ABG 58.1 mmHg (35.0-45.0); PO2 ABG 78.5 mmHg (80.0-100.0); PO2 FiO2 Ratio Arterial Blood 0.79 %; Reduced Hemoglobin 7.5 %THb (0-5.0); Total Hemoglobin 10.4 g/dL (12.0-18.0)
[2023-02-04 04:50] LABS: Arterial Blood Gas Vent Mode CMV; Arterial Blood Gas Ventilator rate 20 /MIN; Device VENTILATOR; Modified Allen's Test Pass; Site Drawn RIGHT RADIAL
[2023-02-04 04:51] LABS: Arterial Blood Gas PEEP 8 cmH2O; Arterial Blood Gas Tidal Volume 350 ml
[2023-02-04] MEDS: LACTATED RINGERS 1,000 ML 150 ML IV CONT (05:24)
[2023-02-04] MEDS: CENTRAL LINE FLUSH 10 ML IV PUSH ×3 (05:24→20:44)
[2023-02-04] MEDS: LEVOTHYROXINE SODIUM INJ 100 MCG/5 ML VIAL 37.5 MCG IV PUSH (05:52)
--- NOTE | 2023-02-04 06:46 | PC.NURSE ---
0001 Dr Montero notified of change in respiratory status and increased demand of o2. Orders received. 0015 Fentanyl increased to 150mcgs and versed increased to 4mg/hr. lasix 20mgs given ivp as ordered. 0110 Message left for LAILA Lang to inform of change in status and get consent for Triple lumen catheter 0120 Dr. De Los Santos updated on status. Medication orders received. 0455 Dr Montero informed of ABGs and WBC. Orders received.
--- NOTE | 2023-02-04 06:55 | PC.NURSE ---
2330 tylenol 650 given per ng as ordered. ice packs placed to groins and axilla
[2023-02-04] MEDS: ALBUTEROL SULFATE NEB 2.5 MG/3 ML INH INHALATION ×3 (07:25→20:53)
[2023-02-04] MEDS: IPRATROPIUM BR 0.02% INH SOLN 0.5 MG/2.5 ML VIAL INHALATION ×3 (07:25→20:54)
[2023-02-04] MEDS: LACTATED RINGERS 500 ML 100 ML IV CONT (09:00)
--- NOTE | 2023-02-04 09:14 | WPDCNINT ---
Assessment and Plan Assessment and plan (1) Acute and chronic respiratory failure with hypoxia: Code(s): J96.21 - Acute and chronic respiratory failure with hypoxia Status: Acute Assessment and Plan: PFTs 11/22 - ? Restrictive pattern? on spirometry.? Severely reduced lung diffusion capacity. Uninterpretable lung volumes. 12/24 nuclear pulmonary perfusion scan was nondiagnostic with intermittent probability 02/[address] with contrast Left lower lobe mass and patchy bilateral airspace opacities of the lungs. Given the relatively short interval between comparison examinations, findings are most consistent with multifocal pneumonia. 02/04 chest x-ray 1. Lines and tubes in expected position. No pneumothorax. 2. Increasing patchy bilateral lung disease consistent with pneumonia. Acute on chronic multifactorial Respiratory failure secondary to COPD, restrictive lung disease, congestive heart failure, left lower lung mass, community-acquired pneumonia Continue full mechanical ventilation support to prevent hypoxemia/hypercarbia and end organ damage. ventilator settings reviewed and I have ordered a repeat ABG blood and sputum cultures are pending continue vancomycin Rocephin and azithromycin continue Solu-Medrol continue Bronchodilators check echocardiogram check lower extremity Dopplers pending urine Legionella and pneumococcal antigen check procalcitonin level pending mycoplasma IgM defer further workup for lung mass depending on her improvement of pneumonia (2) Multifocal pneumonia: Code(s): J18.9 - Pneumonia, unspecified organism Status: Acute Assessment and Plan: see above (3) Obstructive sleep apnea on CPAP: Code(s): G47.33 - Obstructive sleep apnea (adult) (pediatric); Z99.89 - Dependence on other enabling machines and devices Status: Acute Assessment and Plan: see above (4) Chronic obstructive pulmonary disease: Code(s): J44.9 - Chronic obstructive pulmonary disease, unspecified Status: Acute Assessment and Plan: see above (5) Restrictive lung disease: Code(s): J98.4 - Other disorders of lung Status: Acute Assessment and Plan: see above (6) Decreased diffusion capacity: Code(s): R94.2 - Abnormal results of pulmonary function studies Status: Acute Assessment and Plan: see above (7) Ventricular tachycardia: Code(s): I47.20 - Ventricular tachycardia, unspecified Status: Acute Assessment and Plan: patient had nonsustained ventricular tachycardia in the ER and was started on amiodarone infusion now she is getting sinus bradycardia I will hold amiodarone infusion at this time check echocardiogram discussed with Cardiology repeat troponin level EKG reviewed (8) Congestive heart failure: Code(s): I50.9 - Heart failure, unspecified Status: Acute Assessment and Plan: elevated BNP and lower extremity edema suggestive of congestive heart failure patient given cautious amount of IV fluids for her hypotension check echocardiogram (9) Shock: Code(s): R57.9 - Shock, unspecified Status: Acute Assessment and Plan: patient had normal blood pressure when she presented and had normal lactic acid level post intubation and sedation patient became hypotension not a candidate for liberal IV fluids to congestive heart failure continue Levophed titration to maintain mean arterial pressure (10) Acute kidney injury: Code(s): N17.9 - Acute kidney failure, unspecified Status: Acute Assessment and Plan: likely secondary to hypotension and hypoxia. She also received contrast for CT check CK urine electrolytes monitor urine output, electrolytes and creatinine continue IV fluids Plan DVT prophylaxis - Lovenox Stress ulcer prophylaxis - PPI Nutrition - start Tube Feeds Code Status - Full Code Total Critical Ca
[2023-02-04] MEDS: DOXYCYCLINE 100 MG/NS 100 ML 100 MG/100 ML BAG IVPB ×2 (09:45→20:00)
[2023-02-04] MEDS: ENOXAPARIN 40 MG/0.4 ML SYRINGE SUB-Q (09:46)
[2023-02-04] MEDS: PANTOPRAZOLE SODIUM IV 40 MG VIAL IV PUSH (09:46)
[2023-02-04] MEDS: MINERAL OIL/WHITE PETROLATUM OINTMENT 1 APPLIC EACH EYE ×2 (09:46→20:44)
[2023-02-04 10:34] LABS: Alveolar/Arterial O2 Gradient 371.1 mmHg; Base Excess ABG -2.4 mEq/l (+/-2.0); Device VENTILATOR; Fractional Inspired Oxygen 70 %; HCO3 ABG 24.1 mEq/l (22.0-26.0); Modified Allen's Test Pass; Oxygen Content ABG 13.7 %vol (16.0-22.0); Oxygen Saturation ABG 93.6 % (95.0-100.0); Oxyhemoglobin 93.3 % THb (90.0-100.0); PCO2 ABG 49.5 mmHg (35.0-45.0); PO2 ABG 74.8 mmHg (80.0-100.0); PO2 FiO2 Ratio Arterial Blood 1.07 %; Site Drawn RIGHT RADIAL; Total Hemoglobin 10.4 g/dL (12.0-18.0); pH ABG 7.305 (7.350-7.450)
[2023-02-04 10:36] LABS: Arterial Blood Gas Ventilator rate 24 /MIN
[2023-02-04 10:37] LABS: Arterial Blood Gas PEEP 10 cmH2O; Arterial Blood Gas Pressure Support 0 cmH2O; Arterial Blood Gas Tidal Volume 380 ml; Arterial Blood Gas Vent Mode CMV
[2023-02-04 10:47] LABS: Procalcitonin 27.8 ng/mL
[2023-02-04] MEDS: NOREPINEPHRINE 8 MG/D5W 250 ML 8 MG/250 ML BAG 28.13 MG IV CONT (11:17)
--- NOTE | 2023-02-04 11:22 | PC.NURSE ---
Amioderone DC'd by Dr. De Los Santos at 07:38 today. Drip stopped at 07:38. Patient was Sinus Vazquez.
[2023-02-04] MEDS: FENTANYL 2,500MCG/NS250ML(*CRX 2,500 MCG/250 ML BAG 15 MCG IV CONT (12:44)
--- NOTE | 2023-02-04 13:05 | PM.CNCAR ---
Assessment and Plan Assessment and plan (1) Ventricular tachycardia: Code(s): I47.20 - Ventricular tachycardia, unspecified Status: Acute Plan NSVT in the setting of shock, multifocal PNA, acute hypoxic respiratory failure requiring mechanical ventilation. Amiodarone drip discontinued due to concerns for bradycardia. Continue to monitor on telemetry. Echo ordered and pending. Keep electrolytes optimized. History of Present Illness History of Present Illness Consult date/time: 02/04/23 13:05 Requesting physician: Liz Rich PA-C Consult reason: Other (NSVT) Reason For Visit: multifocal pneumonia,vt Narrative: We are consulted for NSVT. This is an 82-year-old female with a history of COPD, restrictive lung disease, MEGAN, paroxysmal atrial fibrillation, hypertension, HLD, temporal arteritis, hypothyroidism who presented from her assisted living facility for shortness of breath. Patient is currently intubated, therefore unable to provide any history. History obtained from the patient's chart. Patient noted to be hypoxic in the ER, and did not tolerate BIPAP, therefore, she was intubated. Noted to have runs of NSVT while in the ER, for which she was started on Amidoarone drip. Chest CT shows left lower lobe mass and patchy bilateral airspace opacities concerning for multifocal PNA. EKG did show ventricular bigeminy. Telemetry while in the ICU without any significant arrhythmias. Amiodarone drip was discontinued due to bradycardia. Patient currently in sinus rhythm. Review of Systems Review of Systems: ROS unobtainable: Yes unobtainable due to endotracheal tube and unobtainable due to medical condition PMFSH Past Medical History Medical History Essential (primary) hypertension Gastroesophageal reflux disease Gout Hyperlipidemia Hypothyroidism Obstructive sleep apnea on CPAP Paroxysmal atrial fibrillation Primary osteoarthritis of left knee Strabismus T12 compression fracture Temporal arteritis Surgical History Surgical History History of arthroscopy of right knee (2019) History of cataract extraction History of thyroidectomy History of tonsillectomy History of tubal ligation Family History Family History Father Acute myocardial infarction Family history of cardiovascular disease Family history of sudden , Onset Age: 46 Family history of elevated blood lipids Family history of coronary artery disease Grandparent Diabetes mellitus Family history of coronary artery disease Family history of malignant neoplasm of breast in first degree relative Mother Family history of glaucoma Hypertension Family history of elevated blood lipids Sibling Hypertension Social History Social History Social History: Surrogate decision maker: Chris Lang, son. Code status: Full code. 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 Spiritual care concerns: No Meds Home Medications and Allergies Home Medications Medication Instructions Recorded Confirmed Type calcium carbonate 600 mg-vitamin 1 tablet PO DAILY 07/09/21 02/03/23 History D3 10 mcg (400 unit) tablet (Calcium with Vitamin D) omega-3 fatty acids 500 mg capsule 500 mg PO DAILY ##0 07/09/21 02/03/23 History fluticasone fur. 100 mcg-umeclid 1 inh inhalation DAILY 07/10/21 02/03/23 History 62.5 mcg-vilant 25 mcg inhalat.powder (Trelegy Ellipta) allopurinol 100 mg tablet 100 mg PO DAILY 09/03/21 02/03/23 History atorvastatin 10 mg tablet 20 mg PO DAILY 09/03/21 02/03/23 Histo
[2023-02-04] MEDS: HEPARIN SOD/D5W 100 UNITS/ML 25,000 UNITS/250 ML BAG 13 UNITS IV CONT (15:13)
[2023-02-04 15:19] LABS: Creatine Kinase 227 U/L (30-135)
[2023-02-04 15:20] LABS: INR 1.5; Prothrombin Time 17.4 Seconds (11.1-14.7)
[2023-02-04 15:21] LABS: Partial Thromboplastin Time 51.7 SECONDS (22.3-36.8)
[2023-02-04 15:24] LABS: Hematocrit 33.3 % (37.0-47.0); Hemoglobin 9.5 g/dL (12.0-15.0); Mean Corpuscular HGB Conc 28.5 g/dl (32-36); Mean Corpuscular Hemoglobin 25.6 pg (26-34); Mean Corpuscular Volume 89.8 fl (80-100); Mean Platelet Volume 10.4 fl (7.4-10.4); Platelet Count Result 163 k/mm3 (150-375); Red Blood Count 3.71 M/mm3 (4.2-5.4)
[2023-02-04 15:54] LABS: White Blood Count 62.7 K/mm3 (4.5-10.0)
[2023-02-04 15:57] LABS: Band Neutrophils Percent 12 % (0-6); Lymphocytes Absolute Manual 3.13 K/mm3 (1.1-4.5); Metamyelocytes Percent 1 %; Monocytes Absolute Manual 8.77 K/mm3 (0.1-0.90); Monocytes Percent Manual 14 % (3-9); Neutrophils Absolute Manual 50.16 K/mm3 (1.7-7.2); Neutrophils Percent Manual 68 % (46-73); Total Cells Counted 100
[2023-02-04 15:58] LABS: Hypochromasia 1+ (NORMAL); Platelet Estimate Adequate (Adequate); Schistocytes None Seen (NORMAL)
[2023-02-04 15:59] LABS: Anisocytosis 3+ (NORMAL)
[2023-02-04] MEDS: ASPIRIN 325 MG TABLET PO (17:39)
--- NOTE | 2023-02-04 17:47 | PC.NURSE ---
Patients son Dangelo Lang who is the patients power of mergers and acquisitions attorney has asked to make the patient a DNR. Xenia Billingsley RN was a witness the request.
[2023-02-04 22:29] LABS: Partial Thromboplastin Time > 200.0 SECONDS (22.3-36.8)
[2023-02-05] VITALS (37 sets, daily range): BP systolic 95–128; BP diastolic 48–89; PULSE 64–154; RESP 22–28; TEMP 36.6–37.3; O2SAT 95–100
[2023-02-05 02:03] LABS: Creatinine Urine 81.4 mg/dL
[2023-02-05 02:14] LABS: Sodium Urine Random 9 meq/L
[2023-02-05] MEDS: IPRATROPIUM BR 0.02% INH SOLN 0.5 MG/2.5 ML VIAL INHALATION ×4 (02:54→20:15)
[2023-02-05] MEDS: ALBUTEROL SULFATE NEB 2.5 MG/3 ML INH INHALATION ×4 (02:54→20:15)
[2023-02-05 05:18] LABS: Alveolar/Arterial O2 Gradient 224.7 mmHg; Carboxyhemoglobin 0.1 % THb (0-2.0); Fractional Inspired Oxygen 50 %; HCO3 ABG 23.2 mEq/l (22.0-26.0); Methemoglobin ABG 0.1 %THb (0-1.5); Oxygen Content ABG 13.3 %vol (16.0-22.0); Oxygen Saturation ABG 96.1 % (95.0-100.0); Oxyhemoglobin 95.5 % THb (90.0-100.0); PCO2 ABG 41.5 mmHg (35.0-45.0); PO2 ABG 85.1 mmHg (80.0-100.0); Reduced Hemoglobin 4.3 %THb (0-5.0); Total Hemoglobin 9.8 g/dL (12.0-18.0); pH ABG 7.366 (7.350-7.450)
[2023-02-05 05:19] LABS: Device VENTILATOR; Modified Allen's Test Pass; Site Drawn RIGHT RADIAL
[2023-02-05 05:20] LABS: Arterial Blood Gas PEEP 10 cmH2O; Arterial Blood Gas Tidal Volume 380 ml; Arterial Blood Gas Vent Mode CMV; Arterial Blood Gas Ventilator rate 24 /MIN
[2023-02-05 06:08] LABS: Hematocrit 30.3 % (37.0-47.0); Hemoglobin 8.8 g/dL (12.0-15.0); Mean Corpuscular Hemoglobin 25.4 pg (26-34); Mean Corpuscular Volume 87.6 fl (80-100); Mean Platelet Volume 10.8 fl (7.4-10.4); Platelet Count Result 144 k/mm3 (150-375); Red Blood Count 3.46 M/mm3 (4.2-5.4); Red Cell Distribution Width 17.9 % (11.5-14.5)
[2023-02-05 06:13] LABS: Alanine Aminotransferase 23 U/L (6-35); Albumin Level 3.4 g/dL (3.5-5.1); Alkaline Phosphatase 97 U/L (38-126); Anion Gap 7 mmol/L (8-16); Aspartate Amino Transferase 61 U/L (14-36); Bilirubin,Total 0.5 mg/dL (0.2-1.3); Blood Urea Nitrogen 22 mg/dL (7-17); Calcium 8.2 mg/dL (8.4-10.2); Carbon Dioxide 27 mmol/L (22-30); Chloride 96 mmol/L (98-107); Estimated CRCL calculation 50 ml/min; Estimated Glomerular Filt Rate 60; Glucose 131 mg/dL (65-110); Potassium 3.8 mmol/L (3.4-5.0); Sodium 130 mmol/L (137-145)
[2023-02-05] MEDS: CENTRAL LINE FLUSH 10 ML IV PUSH ×3 (06:13→20:49)
[2023-02-05] MEDS: LEVOTHYROXINE SODIUM 75 MCG TABLET FEED TUBE (06:14)
[2023-02-05 06:15] LABS: White Blood Count 54.6 K/mm3 (4.5-10.0)
[2023-02-05 06:41] LABS: Partial Thromboplastin Time 170.1 SECONDS (22.3-36.8)
[2023-02-05] MEDS: ASPIRIN 325 MG TABLET PO (08:45)
[2023-02-05] MEDS: methylPREDNISolone SOD SUCC 125 MG VIAL 60 MG IV PUSH (08:46)
[2023-02-05] MEDS: MINERAL OIL/WHITE PETROLATUM OINTMENT 1 APPLIC EACH EYE ×2 (08:46→20:48)
[2023-02-05] MEDS: PANTOPRAZOLE SODIUM IV 40 MG VIAL IV PUSH (08:46)
[2023-02-05] MEDS: DOXYCYCLINE 100 MG/NS 100 ML 100 MG/100 ML BAG IVPB ×2 (08:56→20:05)
--- NOTE | 2023-02-05 09:40 | WPDINTPN ---
Progress Note: A&P Assessment and Plan (1) Acute kidney injury: Code(s): N17.9 - Acute kidney failure, unspecified Status: Acute (2) Shock: Code(s): R57.9 - Shock, unspecified Status: Acute (3) Congestive heart failure: Code(s): I50.9 - Heart failure, unspecified Status: Acute (4) Acute hypoxemic respiratory failure: Code(s): J96.01 - Acute respiratory failure with hypoxia Status: Acute (5) Multifocal pneumonia: Code(s): J18.9 - Pneumonia, unspecified organism Status: Acute (6) Ventricular tachycardia: Code(s): I47.20 - Ventricular tachycardia, unspecified Status: Acute (7) Obstructive sleep apnea on CPAP: Code(s): G47.33 - Obstructive sleep apnea (adult) (pediatric); Z99.89 - Dependence on other enabling machines and devices Status: Acute Plan Neuro: - Continue fentanyl and Versed gtts for sedation. Cardiovascular: - Remains on small dose of Levophed. Wean for MAP 65. - DVT: on heparin gtt. - NSTEMI: may be demand ischemia, but does have WMA on echo. On heparin gtt, Cardiology is following. - NSVT: no further issues. Remains off of amiodarone. Pulmonary: - Acute hypoxemic respiratory failure: remains intubated, will continue AC mode today, plan SAT/SBT in AM. GI: - Continue TF. Renal: - No acute issues. ID: - Pneumonia: continue empiric vanc/Rocephin/doxy for now. Follow cultures. Heme/Onc: - Hyperleukocytosis: with left shift. ?CML - will consult Heme/Onc for their opinion. Endocrine: - Hypothyroidism: on levothyroxine. MSK/skin: - No acute issues. DVT ppx: heparin gtt GI ppx: PPI Time Spent With Patient Time: Critical care time: 50 minutes. Subjective Date/time seen: 02/05/23 09:40 Pt remains intubated and on small dose of Levophed. Review of Systems Review of Systems: Unable to obtain as pt is intubated. Exam Const: General: no acute distress HENMT: Other: OETT in place Eyes: General: appearance normal, both eyes and all related structures Sclera: sclerae normal Resp: Other: Intubated and on mechanical ventilation. Decreased breath sounds. Cardio: Rate: regular rate Rhythm: regular rhythm Heart sounds: no murmurs GI: GI Palp: Yes Soft to palpation and No Tenderness to palpation present (GI) Skin: General skin exam: normal color Neuro: Other: Sedated Extrem: General: edema Psych: Other: Sedated Objective Data Vital Signs Vital Signs: Vital Signs - 24 hr 02/04/23 10:00 02/04/23 10:00 02/04/23 10:52 Temperature Pulse Rate 59 L 57 L 58 L Respiratory Rate 24 H Blood Pressure 120/62 117/62 Pulse Oximetry 97 96 Oxygen Delivery Mechanical Ventilation Fraction of Inspired Oxygen 70 02/04/23 10:00 02/04/23 11:17 02/04/23 11:17 Temperature Pulse Rate 60 60 60 Respiratory Rate Blood Pressure 115/60 136/62 136/62 Pulse Oximetry Oxygen Delivery Fraction of Inspired Oxygen 02/04/23 12:00 02/04/23 11:00 02/04/23 12:10 Temperature Pulse Rate 59 L 59 L 60 Respiratory Rate 24 H 24 H 24 H Blood Pressure 138/58 L Pulse Oximetry 97 Oxygen Delivery Fraction of Inspired Oxygen 02/04/23 12:44 02/04/23 11:00 02/04/23 13:20 Temperature Pulse Rate 60 59 L 61 Respiratory Rate 24 H 24 H Blood Pressure Pulse Oximetry 98 Oxygen Delivery Mechanical Ventilation Fraction of Inspired Oxygen 70 02/04/23 13:20 02/04/23 13:30 02/04/23 16:05 Temperature Pulse Rate 61 60 56 L Respiratory Rate 24 H 24 H Blood Pressure Pulse Oximetry 99 Oxygen Delivery Mechanical Ventilation Fraction of Inspired Oxygen 70 02/04/23 13:00 02/04/23 15:00 02/04/23 16:30 Temperature Pulse Rate 59 L 59 L 53 L Respiratory Rate Blood Pressure 137/62 139/62 134/57 L Pulse Oximetry Oxygen Delivery Fraction of Inspired Oxygen 02/04/23 16:45 02/04/23 14:45 02/04/23 16:45 Temperature Pulse Rate 54
--- NOTE | 2023-02-05 09:53 | P.CDI_ITS ---
CDI Query Clarified Diagnosis Clarified Diagnosis: Elevated BNP on 02/03/23 lab work. CHF noted on the assessment and plan. Documented LE edema. Pt presented with dyspnea. Pt takes Furosemide as a home medication. Please specify type and acuity of heart failure if known. * Acute * Chronic * Acute on Chronic * Unknown * Systolic * Diastolic * Combined Systolic and Diastolic * Unknown <Fartun Kramer RN - Last Filed: 02/05/23 09:58> Provider Comments Patient with grade 1 diastolic dysfunction most likely has acute on chronic diastolic congestive heart failure <Davis Thompson MD - Last Filed: 02/16/23 15:18>
--- NOTE | 2023-02-05 11:26 | PCNFU ---
Nutrition Follow-Up Complete: Inadequate Oral Intake as related to mechanical vent and as evidenced by NPO. goal: Meet estimated nutritional needs Patient is progressing towards goal. We will continue current goal. Pt current nutrition is Vital AF 1.2 at 50 ml/hr Last recorded weight is 97.5 kg. Bowel Motility:No BM reported. Labs Reviewed:Glu 131, BUN 22, Na 130, Alb 3.4 Meds Noted:Versed, Fentanyl, Levophed, Rocephin, Vancomycin Skin: WNL Additional Notes: Patient remains on mechanical vent and tube feedings of Vital AF 1.2 at 50 ml/hr and tolerating per nursing. Tube feedings providing 1320 kcals/82 gms protein/886 ml water. Meeting 88% of kcal needs at 14 kcal/kg. 100% protein needs. Flush 30 ml q 4 hours. Hematology consult. Agree with diet orders. Will monitor in ICU rounds and reassess every Saturday and Saturday.
--- NOTE | 2023-02-05 13:14 | PM.PNCARD ---
Progress Note: A&P Assessment and Plan (1) Acute kidney injury: Code(s): N17.9 - Acute kidney failure, unspecified Status: Acute (2) Shock: Code(s): R57.9 - Shock, unspecified Status: Acute (3) Acute and chronic respiratory failure with hypoxia: Code(s): J96.21 - Acute and chronic respiratory failure with hypoxia Status: Acute (4) Multifocal pneumonia: Code(s): J18.9 - Pneumonia, unspecified organism Status: Acute (5) Ventricular tachycardia: Code(s): I47.20 - Ventricular tachycardia, unspecified Status: Acute (6) Paroxysmal atrial fibrillation: Code(s): I48.0 - Paroxysmal atrial fibrillation Status: Acute (7) Elevated troponin: Code(s): R77.8 - Other specified abnormalities of plasma proteins Status: Acute Plan NSVT in the setting of shock, multifocal PNA, acute hypoxic respiratory failure requiring mechanical ventilation. Amiodarone drip discontinued due to concerns for bradycardia. Continue to monitor on telemetry. Keep electrolytes optimized. Echocardiogram shows LVEF 55-60% with regional wall motion abnormalities, mild-moderate TR. Elevated troponin of 5 in the setting of shock, respiratory failure, multifocal PNA. On Heparin drip already for DVT. Continue with Heparin drip. Continue with ASA daily. When patient recovers from all this, can consider ischemic evaluation in the future. Subjective Date/time seen: 02/05/23 13:14 Interval history: Reason for visit: NSVT HPI: We are consulted for NSVT. This is an 82-year-old female with a history of COPD, restrictive lung disease, MEGAN, paroxysmal atrial fibrillation, hypertension, HLD, temporal arteritis, hypothyroidism who presented from her assisted living facility for shortness of breath. Patient is currently intubated, therefore unable to provide any history. History obtained from the patient's chart. Patient noted to be hypoxic in the ER, and did not tolerate BIPAP, therefore, she was intubated. Noted to have runs of NSVT while in the ER, for which she was started on Amidoarone drip. Chest CT shows left lower lobe mass and patchy bilateral airspace opacities concerning for multifocal PNA. EKG did show ventricular bigeminy. Telemetry while in the ICU without any significant arrhythmias. Amiodarone drip was discontinued due to bradycardia. Patient currently in sinus rhythm. Date of service 02/05/2023: Patient remains critically ill. Remains on mechanical ventilation. Telemetry with few PVCs, otherwise no significant arrhythmias. No episodes of NSVT. Family has made patient DNR. Review of Systems Review of Systems: ROS unobtainable: Yes unobtainable due to endotracheal tube and unobtainable due to medical condition Exam Const: General: no acute distress HENMT: Other: OETT in place Eyes: General: appearance normal, both eyes and all related structures Sclera: sclerae normal Resp: Other: Intubated and on mechanical ventilation. Decreased breath sounds. Cardio: Rate: regular rate Rhythm: regular rhythm Heart sounds: no murmurs GI: GI Palp: Yes Soft to palpation and No Tenderness to palpation present (GI) Skin: General skin exam: normal color Neuro: Other: Sedated Extrem: General: edema Psych: Other: Sedated Objective Data Vital Signs Vital Signs: Vital Signs - 24 hr 02/04/23 13:20 02/04/23 13:20 02/04/23 13:30 Temperature Pulse Rate 61 61 60 Respiratory Rate 24 H 24 H Blood Pressure Pulse Oximetry 98 Oxygen Delivery Mechanical Ventilation Fraction of Inspired Oxygen 70 02/04/23 16:05 02/04/23 15:00 02/04/23 16:30 Temperature Pulse Rate 56 L 59 L 53 L Respiratory Rate Blood Pressure 139/62 134/57 L Pulse Oximetry 99 Oxygen Delivery Mechanical Ventilation Fraction of Inspired Oxygen 70 02/04/23 16:45 02/04/23 14:45 02/04/23 16:45 Temperature Pulse Rate 54 L 60 54 L Respiratory Rate 24 H 24 H Blood Press
[2023-02-05 14:28] LABS: Partial Thromboplastin Time 73.7 SECONDS (22.3-36.8)
[2023-02-05] MEDS: MIDAZOLAM 100MG/NS 100ML(*CRX) 100 MG/100 ML BAG IV CONT (14:40)
--- NOTE | 2023-02-05 15:29 | PM.IMPN ---
Progress Note: A&P Assessment and Plan (1) Acute and chronic respiratory failure with hypoxia: Code(s): J96.21 - Acute and chronic respiratory failure with hypoxia Status: Acute Assessment and Plan: The patient was hypoxic in the 80s on 5 L and was started on BiPAP in the ED. She became increasingly altered in the ED and decision was made to intubate. Dr. De Los Santos has been consulted for management and his input is appreciated. 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 (2) Ventricular tachycardia: Code(s): I47.20 - Ventricular tachycardia, unspecified Status: Acute Assessment and Plan: Patient had recurrent episodes of ventricular tachycardia in the emergency department. Electrolytes looked good though magnesium was at the low end of normal and she was given 2 g of magnesium sulfate. She has also been started on amiodarone drip. Cardiology has been consulted and their input is greatly appreciated. Echocardiogram ordered for a.m.. (3) Multifocal pneumonia: Code(s): J18.9 - Pneumonia, unspecified organism Status: Acute Assessment and Plan: CT shows multifocal pneumonia and she has been started on broad-spectrum antibiotics to include doxycycline, ceftriaxone, and vancomycin. Sputum to be attempted for culture. Check urinary antigens. (4) Normocytic anemia: Code(s): D64.9 - Anemia, unspecified Status: Acute Assessment and Plan: Check iron studies as well as B12 and folates. (5) Paroxysmal atrial fibrillation: Code(s): I48.0 - Paroxysmal atrial fibrillation Status: Acute Assessment and Plan: Currently on amiodarone drip for ventricular tachycardia. (6) Hypothyroidism: Code(s): E03.9 - Hypothyroidism, unspecified Status: Acute Assessment and Plan: Continue levothyroxine. Check TSH. (7) Temporal arteritis: Code(s): M31.6 - Other giant cell arteritis Status: Chronic Assessment and Plan: She is on prednisone 9 mg daily. Currently on Solu-Medrol for bronchospasm. Hold leflunomide for now. (8) Chronic obstructive pulmonary disease: Code(s): J44.9 - Chronic obstructive pulmonary disease, unspecified Status: Acute Assessment and Plan: She is wheezing on exam and has been started on scheduled bronchodilators and Solu-Medrol. (9) Essential (primary) hypertension: Code(s): I10 - Essential (primary) hypertension Status: Acute Assessment and Plan: Blood pressures have been stable. Monitor closely while NPO. Subjective Date/time seen: 02/05/23 15:29 HPI-Narrative: This is an 82-year-old female with COPD, obstructive sleep apnea, paroxysmal atrial fibrillation, hypertension, dyslipidemia, temporal arteritis, and hypothyroidism who presented to the emergency department via EMS from her assisted living facility for evaluation of shortness of breath. At the time my evaluation she is sedated on mechanical ventilation and at a majority of the following is obtained via a review of her electronic medical records as well as discussions with her daughter who is at bedside. The patient has 3 children and at least 1 of them speaks with her every week. Daughter indicates that she has had issues with worsening shortness of breath the last several months and she has been seeing pulmonology as an outpatient. Pulmonary function testing done on 11/30/20
--- NOTE | 2023-02-05 18:28 | ECG_ITS ---
Measurements Intervals [place] Rate: 134 P: [place]: 0 QRS: -17 QRSD: 73 T: 60 QT: 269 QTc: 402 Interpretive Statements ATRIAL FIBRILLATION WITH RAPID VENTRICULAR RESPONSE LOW QRS VOLTAGE IN PRECORDIAL LEADS ANTEROSEPTAL INFARCT, AGE INDETERMINATE INFERIOR INFARCT, AGE INDETERMINATE BORDERLINE ST-T WAVE ABNORMALITY- LAT/HIGH LAT LEADS BASELINE ARTIFACT- V5 ABNORMAL ECG COMPARED TO ECG 02/03/2023 15:14:27 ATRIAL FIBRILLATION NOW PRESENT Electronically Signed On 02-05-2023 20:40:03 [employer]IDENCE LEASING [employer]ENT by Gael Rincon D.O.
[2023-02-05] MEDS: AMIODARONE 360 MG/D5W 200 ML 360 MG/200 ML BAG 33.33 MG IV CONT (18:44)
[2023-02-05 20:37] LABS: Partial Thromboplastin Time 90.6 SECONDS (22.3-36.8)
[2023-02-05] MEDS: NOREPINEPHRINE 8 MG/D5W 250 ML 8 MG/250 ML BAG 3.75 MG IV CONT (22:12)
[2023-02-06] VITALS (42 sets, daily range): BP systolic 100–140; BP diastolic 53–95; PULSE 61–130; RESP 11–30; TEMP 36.6–37.4; O2SAT 93–100
[2023-02-06] MEDS: AMIODARONE 360 MG/D5W 200 ML 360 MG/200 ML BAG 16.67 MG IV CONT (00:25)
[2023-02-06] MEDS: IPRATROPIUM BR 0.02% INH SOLN 0.5 MG/2.5 ML VIAL INHALATION ×4 (02:00→20:02)
[2023-02-06] MEDS: ALBUTEROL SULFATE NEB 2.5 MG/3 ML INH INHALATION ×4 (02:00→20:02)
[2023-02-06 04:12] LABS: Hematocrit 27.7 % (37.0-47.0); Hemoglobin 8.1 g/dL (12.0-15.0); Mean Corpuscular HGB Conc 29.2 g/dl (32-36); Mean Corpuscular Hemoglobin 25.8 pg (26-34); Mean Corpuscular Volume 88.2 fl (80-100); Mean Platelet Volume 11.8 fl (7.4-10.4); Platelet Count Result 145 k/mm3 (150-375); Red Blood Count 3.14 M/mm3 (4.2-5.4); White Blood Count 37.1 K/mm3 (4.5-10.0)
[2023-02-06 04:20] LABS: Alanine Aminotransferase 20 U/L (6-35); Albumin Level 3.2 g/dL (3.5-5.1); Alkaline Phosphatase 106 U/L (38-126); Anion Gap 3 mmol/L (8-16); Aspartate Amino Transferase 40 U/L (14-36); Bilirubin,Total 0.6 mg/dL (0.2-1.3); Blood Urea Nitrogen 31 mg/dL (7-17); Calcium 8.2 mg/dL (8.4-10.2); Carbon Dioxide 29 mmol/L (22-30); Chloride 100 mmol/L (98-107); Estimated CRCL calculation 50 ml/min; Estimated Glomerular Filt Rate 60; Glucose 112 mg/dL (65-110); Magnesium 2.2 mg/dL (1.6-2.3); Potassium 4.2 mmol/L (3.4-5.0); Sodium 132 mmol/L (137-145)
[2023-02-06 04:23] LABS: Partial Thromboplastin Time 78.8 SECONDS (22.3-36.8)
[2023-02-06 05:51] LABS: Base Excess ABG -1.5 mEq/l (+/-2.0); Carboxyhemoglobin 0.2 % THb (0-2.0); Fractional Inspired Oxygen 35 %; HCO3 ABG 24.1 mEq/l (22.0-26.0); Methemoglobin ABG 0.1 %THb (0-1.5); Oxygen Content ABG 12.2 %vol (16.0-22.0); Oxyhemoglobin 93.8 % THb (90.0-100.0); PCO2 ABG 44.9 mmHg (35.0-45.0); PO2 ABG 78.4 mmHg (80.0-100.0); PO2 FiO2 Ratio Arterial Blood 2.24 %; Reduced Hemoglobin 5.9 %THb (0-5.0); Total Hemoglobin 9.2 g/dL (12.0-18.0); pH ABG 7.348 (7.350-7.450)
[2023-02-06 05:53] LABS: Device VENTILATOR; Modified Allen's Test Unable to perform; Site Drawn RIGHT RADIAL
[2023-02-06 05:54] LABS: Arterial Blood Gas PEEP 10 cmH2O; Arterial Blood Gas Tidal Volume 380 ml; Arterial Blood Gas Vent Mode CMV; Arterial Blood Gas Ventilator rate 24 /MIN
[2023-02-06] MEDS: CENTRAL LINE FLUSH 10 ML IV PUSH ×3 (06:15→21:01)
[2023-02-06] MEDS: LEVOTHYROXINE SODIUM 75 MCG TABLET FEED TUBE (06:15)
--- NOTE | 2023-02-06 08:17 | PC.NURSE ---
Patient converted to normal sinus rhythm at 07, Dr. Almonte advised. No EKG ordered at this time, per Dr. Almonte.
--- NOTE | 2023-02-06 08:21 | WPDINTPN ---
Progress Note: A&P Assessment and Plan (1) Acute kidney injury: Code(s): N17.9 - Acute kidney failure, unspecified Status: Acute (2) Shock: Code(s): R57.9 - Shock, unspecified Status: Acute (3) Congestive heart failure: Code(s): I50.9 - Heart failure, unspecified Status: Acute (4) Acute hypoxemic respiratory failure: Code(s): J96.01 - Acute respiratory failure with hypoxia Status: Acute (5) Multifocal pneumonia: Code(s): J18.9 - Pneumonia, unspecified organism Status: Acute (6) Ventricular tachycardia: Code(s): I47.20 - Ventricular tachycardia, unspecified Status: Acute (7) Obstructive sleep apnea on CPAP: Code(s): G47.33 - Obstructive sleep apnea (adult) (pediatric); Z99.89 - Dependence on other enabling machines and devices Status: Acute Plan Neuro: - Continue fentanyl and Versed gtts for sedation. RASS goal -2. Cardiovascular: - Remains on small dose of Levophed. Wean for MAP 65. - DVT: on heparin gtt. - NSTEMI: may be demand ischemia, but does have WMA on echo. On heparin gtt, Cardiology is following. - NSVT: no further issues. Remains off of amiodarone gtt, started on PT amio by Cardiology. Pulmonary: - Acute hypoxemic respiratory failure: remains intubated, switched to ASV mode today, plan SAT/SBT later today. GI: - Continue TF. Renal: - No acute issues. ID: - Pneumonia: continue empiric vanc/Rocephin/doxy for now. Follow cultures. Heme/Onc: - Hyperleukocytosis: with left shift. ?CML - will consult Heme/Onc for their opinion. Less likely given lower WBC count today. Steroids may also be playing a role. Endocrine: - Hypothyroidism: on levothyroxine. MSK/skin: - No acute issues. DVT ppx: heparin gtt GI ppx: PPI Time Spent With Patient Time: Critical care time: 45 minutes. Subjective Date/time seen: 02/06/23 08:21 24h events: No acute events noted. Pt remains on mechanical ventilation. Review of Systems Review of Systems: ROS unobtainable: Yes unobtainable due to endotracheal tube Exam Narrative: morbidly obese Patient is comfortable, NAD HEENT: ET tube in place LUNGS: normal respiratory effort CV: RRR ABD: soft, NT Lower extremities: 1+ edema BUE and BLE SKIN: nonjaundiced Neuro: on vent and sedated Objective Data Vital Signs Vital Signs: Vital Signs - 24 hr 02/05/23 10:58 02/05/23 12:00 02/05/23 12:00 Temperature 98.4 F Pulse Rate 81 80 79 Respiratory Rate 24 H 23 H Blood Pressure 106/55 L Pulse Oximetry 96 96 96 Oxygen Delivery Mechanical Ventilation Mechanical Ventilation Fraction of Inspired Oxygen 40 40 02/05/23 12:00 02/05/23 13:53 02/05/23 14:00 Temperature Pulse Rate 81 94 Respiratory Rate 23 H Blood Pressure Pulse Oximetry 96 Oxygen Delivery Mechanical Ventilation Fraction of Inspired Oxygen 40 40 02/05/23 14:01 02/05/23 14:40 02/05/23 10:00 Temperature Pulse Rate 89 99 78 Respiratory Rate 22 H 24 H Blood Pressure Pulse Oximetry Oxygen Delivery Fraction of Inspired Oxygen 02/05/23 12:00 02/05/23 16:00 02/05/23 16:00 Temperature Pulse Rate 79 79 Respiratory Rate 23 H Blood Pressure Pulse Oximetry 96 Oxygen Delivery Mechanical Ventilation Fraction of Inspired Oxygen 40 40 02/05/23 16:00 02/05/23 16:00 02/05/23 14:00 Temperature 98 F Pulse Rate 81 81 79 Respiratory Rate 24 H Blood Pressure 126/64 Pulse Oximetry 96 Oxygen Delivery Fraction of Inspired Oxygen 02/05/23 14:00 02/05/23 10:00 02/05/23 18:00 Temperature 98.4 F Pulse Rate 93 85 88 Respiratory Rate 24 H 24 H Blood Pressure 128/60 98/48 L Pulse Oximetry 100 97 Oxygen Delivery Fraction of Inspired Oxygen 02/05/23 17:38 02/05/23 11:00 02/05/23 13:00 Temperature Pulse Rate 75 81 81 Respiratory Rate 23 H 23 H Blood Pressure 95/51 L 103/55 L Pulse Oximetry 97 96 96 Oxygen Delivery Mechanical V
[2023-02-06] MEDS: HEPARIN SOD/D5W 100 UNITS/ML 25,000 UNITS/250 ML BAG 9 UNITS IV CONT ×2 (08:43→18:26)
[2023-02-06] MEDS: DOXYCYCLINE 100 MG/NS 100 ML 100 MG/100 ML BAG IVPB ×2 (08:44→21:01)
[2023-02-06] MEDS: PANTOPRAZOLE SODIUM IV 40 MG VIAL IV PUSH (08:46)
[2023-02-06] MEDS: methylPREDNISolone SOD SUCC 125 MG VIAL 60 MG IV PUSH (08:46)
[2023-02-06] MEDS: MINERAL OIL/WHITE PETROLATUM OINTMENT 1 APPLIC EACH EYE ×2 (08:46→21:01)
[2023-02-06] MEDS: ASPIRIN 325 MG TABLET PO (08:46)
--- NOTE | 2023-02-06 09:20 | PM.PNCARD ---
Progress Note: A&P Assessment and Plan (1) Acute kidney injury: Code(s): N17.9 - Acute kidney failure, unspecified Status: Acute (2) Shock: Code(s): R57.9 - Shock, unspecified Status: Acute (3) Acute and chronic respiratory failure with hypoxia: Code(s): J96.21 - Acute and chronic respiratory failure with hypoxia Status: Acute (4) Multifocal pneumonia: Code(s): J18.9 - Pneumonia, unspecified organism Status: Acute (5) Ventricular tachycardia: Code(s): I47.20 - Ventricular tachycardia, unspecified Status: Acute (6) Paroxysmal atrial fibrillation: Code(s): I48.0 - Paroxysmal atrial fibrillation Status: Acute (7) Elevated troponin: Code(s): R77.8 - Other specified abnormalities of plasma proteins Status: Acute Plan NSVT in the setting of shock, multifocal PNA, acute hypoxic respiratory failure requiring mechanical ventilation. Amiodarone drip discontinued initially due to concerns for bradycardia. Echocardiogram shows LVEF 55-60% with regional wall motion abnormalities, mild-moderate TR. Elevated troponin of 5 in the setting of shock, respiratory failure, multifocal PNA. On Heparin drip already for DVT. Continue with Heparin drip. Continue with ASA daily. When patient recovers from all this, can consider ischemic evaluation in the future. I decreased dose of ASA from 325mg to 81mg. No further episodes of NSVT, however, patient went into atrial fibrillation with RVR. Restarted Amiodarone drip with conversion to sinus rhythm. No concerns for bradycardia at this time. Will stop Amiodarone drip and start oral Amiodarone as patient in sinus rhythm. Subjective Date/time seen: 02/06/23 09:20 Interval history: Reason for visit: NSVT HPI: We are consulted for NSVT. This is an 82-year-old female with a history of COPD, restrictive lung disease, MEGAN, paroxysmal atrial fibrillation, hypertension, HLD, temporal arteritis, hypothyroidism who presented from her assisted living facility for shortness of breath. Patient is currently intubated, therefore unable to provide any history. History obtained from the patient's chart. Patient noted to be hypoxic in the ER, and did not tolerate BIPAP, therefore, she was intubated. Noted to have runs of NSVT while in the ER, for which she was started on Amidoarone drip. Chest CT shows left lower lobe mass and patchy bilateral airspace opacities concerning for multifocal PNA. EKG did show ventricular bigeminy. Telemetry while in the ICU without any significant arrhythmias. Amiodarone drip was discontinued due to bradycardia. Patient currently in sinus rhythm. Date of service 02/05/2023: Patient remains critically ill. Remains on mechanical ventilation. Telemetry with few PVCs, otherwise no significant arrhythmias. No episodes of NSVT. Family has made patient DNR. Date of service 02/06/2023: Patient went into AFIB with RVR yesterday with HR as high as 150s. Started on Amiodarone drip. Converted to sinus rhythm this morning. Remains intubated and on Levophed. Review of Systems Review of Systems: ROS unobtainable: Yes unobtainable due to endotracheal tube and unobtainable due to medical condition Exam Const: General: no acute distress HENMT: Other: OETT in place Eyes: General: appearance normal, both eyes and all related structures Sclera: sclerae normal Resp: Other: Intubated and on mechanical ventilation. Decreased breath sounds. Cardio: Rate: regular rate Rhythm: regular rhythm Heart sounds: no murmurs GI: GI Palp: Yes Soft to palpation and No Tenderness to palpation present (GI) Skin: General skin exam: normal color Neuro: Other: Sedated Psych: Other: Sedated Objective Data Vital Signs Vital Signs: Vital Signs - 24 hr 02/05/23 10:58 02/05/23 12:00 02/05/23 12:00 Temperature 36.9 C Pulse Rate 81 80 79 Respiratory Rate 24 H 23 H Blood Pressure 106/55 L Pulse Oximetry 96 96 96 O
[2023-02-06 10:38] LABS: Alveolar/Arterial O2 Gradient 126.3 mmHg; Base Excess ABG -0.4 mEq/l (+/-2.0); Carboxyhemoglobin 0.4 % THb (0-2.0); Fractional Inspired Oxygen 35 %; HCO3 ABG 25.4 mEq/l (22.0-26.0); Methemoglobin ABG 0.2 %THb (0-1.5); Oxygen Content ABG 11.9 %vol (16.0-22.0); Oxygen Saturation ABG 92.7 % (95.0-100.0); Oxyhemoglobin 91.1 % THb (90.0-100.0); PCO2 ABG 47.1 mmHg (35.0-45.0); PO2 ABG 68.5 mmHg (80.0-100.0); PO2 FiO2 Ratio Arterial Blood 1.96 %; Reduced Hemoglobin 8.3 %THb (0-5.0); Total Hemoglobin 9.2 g/dL (12.0-18.0); pH ABG 7.349 (7.350-7.450)
[2023-02-06 10:39] LABS: Device VENTILATOR; Modified Allen's Test Pass; Site Drawn RIGHT RADIAL
[2023-02-06 10:40] LABS: Arterial Blood Gas Minute Volume 8.1 LPM; Arterial Blood Gas PEEP 8 cmH2O; Arterial Blood Gas Vent Mode ASV
--- NOTE | 2023-02-06 11:01 | PCFNICU ---
ICU Rounding Note: Pt current nutrition is Vital AF 1.2 at 50 ml/hr Last recorded weight is 97.6 kg. Bowel Motility:No Bm reported. Labs Reviewed:Glu 112, BUN 31, Na 132, Alb 3.2, Hct 27.7,Hgb 8.1 Meds Noted:Heparin, Protonix, Lasix, Fentanyl, Versed, Levophed, Vancomycin Skin: WNL Additional Notes: Patient remains on mechanical vent and tube feedings of Vital AF 1.2 at 50 ml/hr. Nursing noted residual of 150 ml. Tube feedings continue at 50ml/hr. Flush 30 ml q 4 hours. Plans for breathing trial today. Agree with diet orders. Following daily in ICU rounds. Will reassess every Saturday and Saturday.
[2023-02-06] MEDS: AMIODARONE HCL 200 MG TABLET 400 MG PO (11:18)
[2023-02-06] MEDS: FUROSEMIDE INJ 40 MG/4 ML VIAL IV PUSH (11:18)
[2023-02-06 11:56] LABS: Glucose Point of Care 132 mg/dl (65-105)
--- NOTE | 2023-02-06 12:38 | PM.IMPN ---
Progress Note: A&P Assessment and Plan (1) Acute kidney injury: Code(s): N17.9 - Acute kidney failure, unspecified Status: Acute (2) Shock: Code(s): R57.9 - Shock, unspecified Status: Acute (3) Congestive heart failure: Code(s): I50.9 - Heart failure, unspecified Status: Acute (4) Acute hypoxemic respiratory failure: Code(s): J96.01 - Acute respiratory failure with hypoxia Status: Acute (5) Multifocal pneumonia: Code(s): J18.9 - Pneumonia, unspecified organism Status: Acute (6) Ventricular tachycardia: Code(s): I47.20 - Ventricular tachycardia, unspecified Status: Acute (7) Obstructive sleep apnea on CPAP: Code(s): G47.33 - Obstructive sleep apnea (adult) (pediatric); Z99.89 - Dependence on other enabling machines and devices Status: Acute Plan Neuro: - Continue fentanyl and Versed gtts for sedation. RASS goal -2. Cardiovascular: - Remains on small dose of Levophed. Wean for MAP 65. - DVT: on heparin gtt. - NSTEMI: may be demand ischemia, but does have WMA on echo. On heparin gtt, Cardiology is following. - NSVT: no further issues. Remains off of amiodarone gtt, started on PT amio by Cardiology. Pulmonary: - Acute hypoxemic respiratory failure: remains intubated, switched to ASV mode today, plan SAT/SBT later today. GI: - Continue TF. Renal: - No acute issues. ID: - Pneumonia: continue empiric vanc/Rocephin/doxy for now. Follow cultures. Heme/Onc: - Hyperleukocytosis: with left shift. ?CML - will consult Heme/Onc for their opinion. Less likely given lower WBC count today. Steroids may also be playing a role. Endocrine: - Hypothyroidism: on levothyroxine. MSK/skin: - No acute issues. DVT ppx: heparin gtt GI ppx: PPI Subjective Date/time seen: 02/06/23 12:38 Sedated and intubated Exam Narrative: morbidly obese Patient is comfortable, NAD HEENT: ET tube in place LUNGS: normal respiratory effort CV: RRR ABD: soft, NT Lower extremities: 1+ edema BUE and BLE SKIN: nonjaundiced Neuro: on vent and sedated Objective Data Vital Signs Vital Signs: Vital Signs - 24 hr 02/05/23 13:53 02/05/23 14:00 02/05/23 14:01 Temperature Pulse Rate 81 94 89 Respiratory Rate 23 H 22 H Blood Pressure Pulse Oximetry 96 Oxygen Delivery Mechanical Ventilation Fraction of Inspired Oxygen 40 02/05/23 14:40 02/05/23 16:00 02/05/23 16:00 Temperature Pulse Rate 99 79 Respiratory Rate 24 H 23 H Blood Pressure Pulse Oximetry 96 Oxygen Delivery Mechanical Ventilation Fraction of Inspired Oxygen 40 40 02/05/23 16:00 02/05/23 16:00 02/05/23 14:00 Temperature 98 F Pulse Rate 81 81 79 Respiratory Rate 24 H Blood Pressure 126/64 Pulse Oximetry 96 Oxygen Delivery Fraction of Inspired Oxygen 02/05/23 14:00 02/05/23 18:00 02/05/23 17:38 Temperature Pulse Rate 93 88 75 Respiratory Rate 24 H Blood Pressure 128/60 Pulse Oximetry 100 97 Oxygen Delivery Mechanical Ventilation Fraction of Inspired Oxygen 40 02/05/23 13:00 02/05/23 15:00 02/05/23 18:44 Temperature Pulse Rate 81 90 148 H Respiratory Rate 23 H 24 H Blood Pressure 103/55 L 122/59 L 118/89 Pulse Oximetry 96 95 Oxygen Delivery Fraction of Inspired Oxygen 02/05/23 18:51 02/05/23 20:00 02/05/23 20:00 Temperature 99 F Pulse Rate 154 H 128 H 128 H Respiratory Rate 24 H 24 H Blood Pressure 115/68 106/71 Pulse Oximetry 96 98 Oxygen Delivery Fraction of Inspired Oxygen 02/05/23 20:00 02/05/23 20:00 02/05/23 20:15 Temperature Pulse Rate 128 H 122 H Respiratory Rate 24 H 28 H Blood Pressure Pulse Oximetry 96 Oxygen Delivery Mechanical Ventilation Fraction of Inspired Oxygen 40 40 02/05/23 20:24 02/05/23 20:15 02/05/23 22:00 Temperature 99.1 F Pulse Rate 126 H 129 H 119 H Respiratory Rate 24 H 24 H Blood Pressure 100/65 Pulse Oximetry 96 97 Oxyg
[2023-02-06] MEDS: FENTANYL 2,500MCG/NS250ML(*CRX 2,500 MCG/250 ML BAG 7.5 MCG IV CONT (18:20)
[2023-02-06] MEDS: MIDAZOLAM 100MG/NS 100ML(*CRX) 100 MG/100 ML BAG IV CONT (18:21)
--- NOTE | 2023-02-06 19:13 | PDONCCN ---
HPI - Date of Consult Date/Time: 02/06/23 19:13 Requesting Physician: Gurmeet Mckeon MD Primary Care Provider: Gal Gomez MD - Consult Narrative Reason for consult: Leukocytosis and normocytic anemia. Narrative: Nidia Lang is a 82 year old female with history of COPD, sleep apnea, atrial fibrillation and hypertension brought into the ER why EMS with shortness of breath. She was put on ventilator. CT chest showed left lower lobe mass 7.4 x 5.3 cm with bilateral airspace opacities consistent with multifocal pneumonia. Doppler study showed DVT involving right posterior tibial and peroneal vein. She remains intubated and currently being treated for pneumonia and septic shock. Her labs showed elevated WBC count of 13.5 which has risen to 59.1. She was mildly anemic at 9.5 now dropped down to 8.1. She is currently on Rocephin and doxycycline for pneumonia and sepsis. She is also on Solu-Medrol 60 mg IV daily. She was also seen by Cardiology due to ventricular tachycardia. Troponin was also elevated. She is on heparin drip for DVT. Review of Systems - Review of Systems All systems reviewed & are unremarkable except as noted in HPI and [facility] Medical History: Medical History (Last Reviewed 02/04/23 @ 14:41 by Radha Mack PA-C) Essential (primary) hypertension Gastroesophageal reflux disease Gout Hyperlipidemia Hypothyroidism Obstructive sleep apnea on CPAP Paroxysmal atrial fibrillation Primary osteoarthritis of left knee Strabismus T12 compression fracture Temporal arteritis Surgical History: Surgical History (Last Reviewed 02/04/23 @ 14:42 by Radha Mack PA-C) History of arthroscopy of right knee Onset Date: 2018 History of cataract extraction History of thyroidectomy History of tonsillectomy History of tubal ligation Family History: Family History (Last Reviewed 02/04/23 @ 14:42 by Radha Mack PA-C) Father Acute myocardial infarction Family history of cardiovascular disease Family history of sudden , Onset Age: 46 Family history of elevated blood lipids Family history of coronary artery disease Grandparent Diabetes mellitus Family history of coronary artery disease Family history of malignant neoplasm of breast in first degree relative Mother Family history of glaucoma Hypertension Family history of elevated blood lipids Sibling Hypertension - Social History Social History: Social History (Last Reviewed 02/04/23 @ 14:42 by Radha Mack PA-C) Alcohol Use: Alcohol intake: unknown Drinks per week: 2 Substance Use: Substance use: unknown Others: Spiritual care concerns: No Living Arrangements: Living arrangements: alone Oppucation/Education: Occupation/Education: retired Smoking Status: Smoking status: Never smoker Second hand tobacco smoke exposure: Yes Exam - Vital Signs Vital Signs - 24 hr 02/05/23 20:00 02/05/23 20:00 02/05/23 20:00 Temperature 37.2 C Pulse Rate 128 H 128 H Respiratory Rate 24 H Blood Pressure 106/71 Pulse Oximetry 98 Oxygen Delivery Fraction of Inspired Oxygen 40 02/05/23 20:00 02/05/23 20:15 02/05/23 20:24 Temperature Pulse Rate 128 H 122 H 126 H Respiratory Rate 24 H 28 H 24 H Blood Pressure Pulse Oximetry 96 Oxygen Delivery Mechanical Ventilation Fraction of Inspired Oxygen 40 02/05/23 20:15 02/05/23 22:00 02/05/23 22:00 Temperature 37.3 C Pulse Rate 129 H 119 H 119 H Respiratory Rate 24 H Blood Pressure 100/65 Pulse Oximetry 96 97 Oxygen Delivery Mechanical Ventilation Fraction of Inspired Oxygen 40 02/05/23 22:12 02/05/23 23:52 02/05/23 23:54 Temperature Pulse Rate 119 H 116 H Respiratory Rate Blood Pressure 100/65 Pulse Oximetry Oxygen Delivery Fraction of Inspired Oxygen 40 02/06/23 00:00 02/06/23 00:00 02/06/23 00:25 Temperature 37.2 C P
[2023-02-06 20:14] LABS: Mycoplasma IgM Antibody Titer 500 U/mL (<770)
[2023-02-06 21:49] LABS: Erythrocyte Sedimentation Rate 92 mm/hr (0-20)
[2023-02-06 21:51] LABS: CRP 14.1 mg/dL (<1.0)
[2023-02-07] VITALS (33 sets, daily range): BP systolic 106–156; BP diastolic 50–83; PULSE 62–94; RESP 14–28; TEMP 36.7–37.3; O2SAT 93–98
[2023-02-07] MEDS: ALBUTEROL SULFATE NEB 2.5 MG/3 ML INH INHALATION ×4 (01:19→19:32)
[2023-02-07] MEDS: IPRATROPIUM BR 0.02% INH SOLN 0.5 MG/2.5 ML VIAL INHALATION ×4 (01:19→19:32)
[2023-02-07 05:00] LABS: Carboxyhemoglobin 0.1 % THb (0-2.0); Fractional Inspired Oxygen 35 %; Methemoglobin ABG 0.3 %THb (0-1.5); Oxygen Content ABG 11.9 %vol (16.0-22.0); Oxygen Saturation ABG 97.2 % (95.0-100.0); PCO2 ABG 38.9 mmHg (35.0-45.0); PO2 ABG 89.3 mmHg (80.0-100.0); PO2 FiO2 Ratio Arterial Blood 2.55 %; Reduced Hemoglobin 3.6 %THb (0-5.0); Total Hemoglobin 8.7 g/dL (12.0-18.0)
[2023-02-07 05:02] LABS: Device VENTILATOR; Modified Allen's Test Pass; Site Drawn RIGHT RADIAL
[2023-02-07 05:03] LABS: Arterial Blood Gas PEEP 8 cmH2O; Arterial Blood Gas Tidal Volume 380 ml; Arterial Blood Gas Vent Mode CMV; Arterial Blood Gas Ventilator rate 24 /MIN
[2023-02-07] MEDS: CENTRAL LINE FLUSH 10 ML IV PUSH ×3 (05:28→20:38)
[2023-02-07] MEDS: LEVOTHYROXINE SODIUM 75 MCG TABLET FEED TUBE (05:29)
[2023-02-07 05:32] LABS: Hematocrit 27.1 % (37.0-47.0); Hemoglobin 7.9 g/dL (12.0-15.0); Mean Corpuscular HGB Conc 29.2 g/dl (32-36); Mean Corpuscular Hemoglobin 25.4 pg (26-34); Mean Corpuscular Volume 87.1 fl (80-100); Platelet Count Result 150 k/mm3 (150-375); Red Blood Count 3.11 M/mm3 (4.2-5.4); Red Cell Distribution Width 18.1 % (11.5-14.5); White Blood Count 29.7 K/mm3 (4.5-10.0)
[2023-02-07 05:44] LABS: Partial Thromboplastin Time 57.6 SECONDS (22.3-36.8)
[2023-02-07 05:45] LABS: Alanine Aminotransferase 52 U/L (6-35); Albumin Level 3.5 g/dL (3.5-5.1); Alkaline Phosphatase 128 U/L (38-126); Anion Gap 6 mmol/L (8-16); Aspartate Amino Transferase 90 U/L (14-36); Bilirubin,Total 0.5 mg/dL (0.2-1.3); Blood Urea Nitrogen 41 mg/dL (7-17); Calcium 8.8 mg/dL (8.4-10.2); Carbon Dioxide 30 mmol/L (22-30); Chloride 95 mmol/L (98-107); Estimated CRCL calculation 51 ml/min; Estimated Glomerular Filt Rate 60; Glucose 114 mg/dL (65-110); Magnesium 2.4 mg/dL (1.6-2.3); Potassium 4.3 mmol/L (3.4-5.0); Sodium 131 mmol/L (137-145)
[2023-02-07] MEDS: HEPARIN SODIUM 5,000 UNITS/ML VIAL 3000 UNITS IV PUSH (05:47)
[2023-02-07] MEDS: AMIODARONE HCL 200 MG TABLET 400 MG PO (07:36)
[2023-02-07] MEDS: DOXYCYCLINE 100 MG/NS 100 ML 100 MG/100 ML BAG IVPB ×2 (07:37→20:37)
[2023-02-07] MEDS: ASPIRIN 81 MG CHEWABLE TABLET PO (07:37)
--- NOTE | 2023-02-07 08:37 | WPDINTPN ---
Progress Note: A&P Assessment and Plan (1) Acute kidney injury: Code(s): N17.9 - Acute kidney failure, unspecified Status: Acute (2) Shock: Code(s): R57.9 - Shock, unspecified Status: Acute (3) Congestive heart failure: Code(s): I50.9 - Heart failure, unspecified Status: Acute (4) Acute hypoxemic respiratory failure: Code(s): J96.01 - Acute respiratory failure with hypoxia Status: Acute (5) Multifocal pneumonia: Code(s): J18.9 - Pneumonia, unspecified organism Status: Acute (6) Ventricular tachycardia: Code(s): I47.20 - Ventricular tachycardia, unspecified Status: Acute (7) Obstructive sleep apnea on CPAP: Code(s): G47.33 - Obstructive sleep apnea (adult) (pediatric); Z99.89 - Dependence on other enabling machines and devices Status: Acute Plan Neuro: - Continue fentanyl, switch Versed to Precedex for sedation. RASS goal 0 to -1. Cardiovascular: - Remains off of Levophed. - DVT: on heparin gtt. - NSTEMI: may be demand ischemia, but does have WMA on echo. On heparin gtt, Cardiology is following. - NSVT: no further issues. Remains off of amiodarone gtt, started on PT amio by Cardiology. Pulmonary: - Acute hypoxemic respiratory failure: remains intubated, switched to ASV mode today, plan SAT/SBT later today. GI: - Continue TF. Renal: - No acute issues. ID: - Pneumonia: continue empiric vanc/Rocephin/doxy for now. Follow cultures. Heme/Onc: - Hyperleukocytosis: with left shift. Likely leukemoid reaction from sepsis, Hematology is following. Steroids may also be playing a role. Endocrine: - Hypothyroidism: on levothyroxine. MSK/skin: - No acute issues. DVT ppx: heparin gtt GI ppx: PPI Time Spent With Patient Time: Critical care time: 35 minutes. Subjective Date/time seen: 02/07/23 08:37 Pt remains on mechanical ventilation. No acute events noted overnight. Review of Systems Review of Systems: ROS unobtainable: Yes unobtainable due to endotracheal tube Exam Narrative: morbidly obese Patient is comfortable, NAD HEENT: ET tube in place LUNGS: normal respiratory effort CV: RRR ABD: soft, NT Lower extremities: 1+ edema BUE and BLE SKIN: nonjaundiced Neuro: on vent and sedated Objective Data Vital Signs Vital Signs: Vital Signs - 24 hr 02/06/23 08:39 02/06/23 08:39 02/06/23 08:41 Temperature Pulse Rate 88 88 88 Respiratory Rate 30 H 26 H Blood Pressure 110/53 L Pulse Oximetry Oxygen Delivery Fraction of Inspired Oxygen 02/06/23 08:45 02/06/23 09:20 02/06/23 10:00 Temperature Pulse Rate 88 102 H Respiratory Rate Blood Pressure 110/53 L 140/66 Pulse Oximetry Oxygen Delivery Fraction of Inspired Oxygen 35 02/06/23 10:01 02/06/23 10:03 02/06/23 10:00 Temperature Pulse Rate 102 H 102 H 95 Respiratory Rate 26 H 15 Blood Pressure Pulse Oximetry Oxygen Delivery Fraction of Inspired Oxygen 02/06/23 10:00 02/06/23 10:00 02/06/23 11:18 Temperature 98.8 F 98.8 F Pulse Rate 95 95 95 Respiratory Rate 12 12 Blood Pressure 131/66 131/66 Pulse Oximetry 94 93 Oxygen Delivery Fraction of Inspired Oxygen 02/06/23 11:19 02/06/23 12:05 02/06/23 12:00 Temperature 99 F Pulse Rate 95 78 101 H Respiratory Rate 12 Blood Pressure 114/95 H 119/62 136/77 Pulse Oximetry 100 Oxygen Delivery Fraction of Inspired Oxygen 02/06/23 09:57 02/06/23 10:51 02/06/23 12:00 Temperature Pulse Rate 93 92 82 Respiratory Rate Blood Pressure Pulse Oximetry 95 95 Oxygen Delivery Mechanical Ventilation Mechanical Ventilation Fraction of Inspired Oxygen 35 35 02/06/23 12:00 02/06/23 13:06 02/06/23 13:08 Temperature Pulse Rate 91 91 Respiratory Rate 12 12 Blood Pressure Pulse Oximetry Oxygen Delivery Fraction of Inspired Oxygen 35 02/06/23 12:00 02/06/23 13:11 02/06/23 13:11 Temperature Puls
[2023-02-07] MEDS: methylPREDNISolone SOD SUCC 125 MG VIAL 60 MG IV PUSH (09:05)
[2023-02-07] MEDS: PANTOPRAZOLE SODIUM IV 40 MG VIAL IV PUSH (09:05)
[2023-02-07] MEDS: MINERAL OIL/WHITE PETROLATUM OINTMENT 1 APPLIC EACH EYE ×2 (09:05→20:38)
--- NOTE | 2023-02-07 09:18 | PM.PNCARD ---
Progress Note: A&P Assessment and Plan (1) Acute kidney injury: Code(s): N17.9 - Acute kidney failure, unspecified Status: Acute (2) Shock: Code(s): R57.9 - Shock, unspecified Status: Acute (3) Acute and chronic respiratory failure with hypoxia: Code(s): J96.21 - Acute and chronic respiratory failure with hypoxia Status: Acute (4) Multifocal pneumonia: Code(s): J18.9 - Pneumonia, unspecified organism Status: Acute (5) Ventricular tachycardia: Code(s): I47.20 - Ventricular tachycardia, unspecified Status: Acute (6) Paroxysmal atrial fibrillation: Code(s): I48.0 - Paroxysmal atrial fibrillation Status: Acute (7) Elevated troponin: Code(s): R77.8 - Other specified abnormalities of plasma proteins Status: Acute Plan NSVT in the setting of shock, multifocal PNA, acute hypoxic respiratory failure requiring mechanical ventilation. Amiodarone drip discontinued initially due to concerns for bradycardia. Echocardiogram shows LVEF 55-60% with regional wall motion abnormalities, mild-moderate TR. Elevated troponin of 5 in the setting of shock, respiratory failure, multifocal PNA. On Heparin drip already for DVT. Continue with Heparin drip. Continue with low dose ASA daily. Eventual ischemia evaluation as an outpatient when she has recovered. She remains in sinus rhythm. Continue oral amiodarone. Reduce to 200mg daily at time of discharge for maintenance dose Cardiology will sign off at this point. Please do not hesitate to contact us with any questions. Subjective Date/time seen: 02/07/23 09:18 Interval history: Reason for visit: NSVT HPI: We are consulted for NSVT. This is an 82-year-old female with a history of COPD, restrictive lung disease, MEGAN, paroxysmal atrial fibrillation, hypertension, HLD, temporal arteritis, hypothyroidism who presented from her assisted living facility for shortness of breath. Patient is currently intubated, therefore unable to provide any history. History obtained from the patient's chart. Patient noted to be hypoxic in the ER, and did not tolerate BIPAP, therefore, she was intubated. Noted to have runs of NSVT while in the ER, for which she was started on Amidoarone drip. Chest CT shows left lower lobe mass and patchy bilateral airspace opacities concerning for multifocal PNA. EKG did show ventricular bigeminy. Telemetry while in the ICU without any significant arrhythmias. Amiodarone drip was discontinued due to bradycardia. Patient currently in sinus rhythm. Date of service 02/05/2023: Patient remains critically ill. Remains on mechanical ventilation. Telemetry with few PVCs, otherwise no significant arrhythmias. No episodes of NSVT. Family has made patient DNR. Date of service 02/06/2023: Patient went into AFIB with RVR yesterday with HR as high as 150s. Started on Amiodarone drip. Converted to sinus rhythm this morning. Remains intubated and on Levophed. Date of service 02/07/2023: Off pressors today. Remains in sinus rhythm, no ectopy on telemetry review. Intubated and sedated. Son at the bedside. Review of Systems Review of Systems: ROS unobtainable: Yes unobtainable due to endotracheal tube and unobtainable due to medical condition Exam Const: General: no acute distress HENMT: Other: OETT in place Eyes: General: appearance normal, both eyes and all related structures Sclera: sclerae normal Resp: Auscultation: rhonchi Other: Intubated and on mechanical ventilation. Decreased breath sounds. Cardio: Rate: regular rate Rhythm: regular rhythm Heart sounds: no murmurs GI: GI Palp: Yes Soft to palpation Urinary Catheter: Urinary Catheter: patent and draining Skin: General skin exam: normal color Neuro: Other: Sedated Extrem: General: edema Other: Extremities warm and well perfused. Distal pulses intact Psych: Other: Sedated Objective Data Vital Signs Vital Signs: Vital Signs
[2023-02-07 09:29] LABS: Vancomycin Trough 19.4 ug/mL (10.0-20.0)
[2023-02-07] MEDS: dexmedeTOMIDine 400 MCG/100 ML 400 MCG/100 ML BAG 5.01 MCG IV CONT (11:06)
[2023-02-07] MEDS: FUROSEMIDE INJ 40 MG/4 ML VIAL IV PUSH (11:06)
--- NOTE | 2023-02-07 11:34 | PCFNICU ---
ICU Rounding Note: Pt current nutrition is NPO, tube feeing: Vital AF 1.2 @ 50ml/hr. Nutrition recommendation: Continue with current plan of care. Last recorded weight is 100.2 kg. Bowel Motility: No BM, to start on miralax today Labs Reviewed: Hgb:7.9, HCT:27.1, NA:131, BUN:41 Meds Noted:Heparin, protonix, lasix, fentanyl, versed, levophed, vancomycin, solumedrol Skin: WNL Additional Notes: Pt continues on mechanical ventilation. Tube feedings running at goal rate, tolerating. Agree with diet order, Following daily in ICU rounds. Will reassess every Saturday and Saturday..
[2023-02-07 12:02] LABS: Glucose Point of Care 165 mg/dl (65-105)
[2023-02-07 12:02] LABS: Partial Thromboplastin Time 104.7 SECONDS (22.3-36.8)
[2023-02-07] MEDS: polyethylene glycoL 3350 17 GM POWD.PACK PO (13:05)
[2023-02-07 18:05] LABS: Partial Thromboplastin Time 84.2 SECONDS (22.3-36.8)
[2023-02-07] MEDS: HEPARIN SOD/D5W 100 UNITS/ML 25,000 UNITS/250 ML BAG 10 UNITS IV CONT (19:50)
[2023-02-07 21:23] LABS: Pneumococcal Antigen Urine Not Detected (Not Detected)
[2023-02-08] VITALS (36 sets, daily range): BP systolic 129–157; BP diastolic 52–92; PULSE 69–115; RESP 16–33; TEMP 37.1–37.6; O2SAT 93–97
[2023-02-08] MEDS: ALBUTEROL SULFATE NEB 2.5 MG/3 ML INH INHALATION ×4 (02:09→20:14)
[2023-02-08] MEDS: IPRATROPIUM BR 0.02% INH SOLN 0.5 MG/2.5 ML VIAL INHALATION ×4 (02:09→20:14)
[2023-02-08] MEDS: dexmedeTOMIDine 400 MCG/100 ML 400 MCG/100 ML BAG 5.01 MCG IV CONT (04:32)
[2023-02-08 05:01] LABS: Hemoglobin 7.4 g/dL (12.0-15.0); Mean Corpuscular HGB Conc 29.6 g/dl (32-36); Mean Corpuscular Hemoglobin 25.1 pg (26-34); Mean Corpuscular Volume 84.7 fl (80-100); Mean Platelet Volume 11.3 fl (7.4-10.4); Platelet Count Result 163 k/mm3 (150-375); Red Blood Count 2.95 M/mm3 (4.2-5.4); Red Cell Distribution Width 18.1 % (11.5-14.5); White Blood Count 44.3 K/mm3 (4.5-10.0)
[2023-02-08 05:15] LABS: Alanine Aminotransferase 70 U/L (6-35); Albumin Level 3.3 g/dL (3.5-5.1); Alkaline Phosphatase 123 U/L (38-126); Anion Gap 4 mmol/L (8-16); Aspartate Amino Transferase 69 U/L (14-36); Bilirubin,Total 0.6 mg/dL (0.2-1.3); Blood Urea Nitrogen 48 mg/dL (7-17); Calcium 8.8 mg/dL (8.4-10.2); Carbon Dioxide 32 mmol/L (22-30); Chloride 100 mmol/L (98-107); Estimated CRCL calculation 51 ml/min; Estimated Glomerular Filt Rate 60; Glucose 106 mg/dL (65-110); Magnesium 2.2 mg/dL (1.6-2.3); Potassium 4.5 mmol/L (3.4-5.0); Sodium 136 mmol/L (137-145)
[2023-02-08 05:15] LABS: Alveolar/Arterial O2 Gradient 155.9 mmHg; Base Excess ABG 4.6 mEq/l (+/-2.0); Carboxyhemoglobin 0.3 % THb (0-2.0); Fractional Inspired Oxygen 40 %; HCO3 ABG 28.4 mEq/l (22.0-26.0); Methemoglobin ABG 0.3 %THb (0-1.5); Oxygen Content ABG 12.3 %vol (16.0-22.0); Oxyhemoglobin 95.4 % THb (90.0-100.0); PCO2 ABG 38.7 mmHg (35.0-45.0); PO2 ABG 84.8 mmHg (80.0-100.0); PO2 FiO2 Ratio Arterial Blood 2.12 %; Total Hemoglobin 9.1 g/dL (12.0-18.0); pH ABG 7.483 (7.350-7.450)
[2023-02-08 05:16] LABS: Device VENTILATOR; Modified Allen's Test Pass; Site Drawn RIGHT RADIAL
[2023-02-08 05:17] LABS: Arterial Blood Gas PEEP 5 cmH2O; Arterial Blood Gas Vent Mode ASV
[2023-02-08] MEDS: CENTRAL LINE FLUSH 10 ML IV PUSH ×3 (05:42→21:12)
[2023-02-08] MEDS: LEVOTHYROXINE SODIUM 75 MCG TABLET FEED TUBE (05:42)
[2023-02-08 05:49] LABS: Partial Thromboplastin Time 66.9 SECONDS (22.3-36.8)
[2023-02-08] MEDS: HEPARIN SODIUM 5,000 UNITS/ML VIAL 3000 UNITS IV PUSH ×2 (05:57→21:10)
--- NOTE | 2023-02-08 06:48 | PCRCNOTE ---
At 0540 pt.'s vent mode was changed from ASV to CMV due to increase in pt pt heart rate up to 155 and an increase in pt.'s resp rate up to 34. Previous CMV settings were initiated. Vt - 380, RR - 24, Peep 5, 40%. Bloody secretions were also noted this evening coming from pt.'s ETT.
[2023-02-08] MEDS: ASPIRIN 81 MG CHEWABLE TABLET PO (07:53)
[2023-02-08] MEDS: AMIODARONE HCL 200 MG TABLET 400 MG PO (07:53)
[2023-02-08] MEDS: DOXYCYCLINE 100 MG/NS 100 ML 100 MG/100 ML BAG IVPB (07:53)
[2023-02-08] MEDS: MINERAL OIL/WHITE PETROLATUM OINTMENT 1 APPLIC EACH EYE ×2 (08:56→21:12)
[2023-02-08] MEDS: PANTOPRAZOLE SODIUM IV 40 MG VIAL IV PUSH (08:56)
[2023-02-08] MEDS: methylPREDNISolone SOD SUCC 125 MG VIAL 60 MG IV PUSH (08:56)
--- NOTE | 2023-02-08 09:02 | WPDINTPN ---
Progress Note: A&P Assessment and Plan (1) Acute kidney injury: Code(s): N17.9 - Acute kidney failure, unspecified Status: Acute (2) Shock: Code(s): R57.9 - Shock, unspecified Status: Acute (3) Congestive heart failure: Code(s): I50.9 - Heart failure, unspecified Status: Acute (4) Acute hypoxemic respiratory failure: Code(s): J96.01 - Acute respiratory failure with hypoxia Status: Acute (5) Multifocal pneumonia: Code(s): J18.9 - Pneumonia, unspecified organism Status: Acute (6) Ventricular tachycardia: Code(s): I47.20 - Ventricular tachycardia, unspecified Status: Acute (7) Obstructive sleep apnea on CPAP: Code(s): G47.33 - Obstructive sleep apnea (adult) (pediatric); Z99.89 - Dependence on other enabling machines and devices Status: Acute Plan Neuro: - Continue fentanyl and Precedex for analgosedation. RASS goal 0 to -1. Versed stopped 02/07. Still encephalopathic but exam is nonfocal. Likely slow metabolism of Versed. Consider CT head if not more awake tomorrow. Cardiovascular: - Remains off of Levophed. - DVT: on heparin gtt. - NSTEMI: may be demand ischemia, but does have WMA on echo. On heparin gtt, Cardiology is following. Possible cath if improves clinically. - NSVT: no further issues. Remains off of amiodarone gtt, started on PT amio by Cardiology. Pulmonary: - Acute hypoxemic respiratory failure: remains intubated, switched to ASV mode today but became labored and placed back on AC. Will start scheduled diuresis (CXR appears more volume overloaded today), SAT/SBT in AM. Mental status is also a limiting factor to extubation. GI: - Continue TF. Renal: - No acute issues. ID: - Pneumonia: continue empiric vanc/Rocephin/doxy x7 total days. Follow cultures. Heme/Onc: - Hyperleukocytosis: with left shift. Likely leukemoid reaction from sepsis, Hematology is following. Steroids may also be playing a role. Endocrine: - Hypothyroidism: on levothyroxine. MSK/skin: - No acute issues. DVT ppx: heparin gtt GI ppx: PPI Time Spent With Patient Time: Critical care time: 40 minutes. Subjective Date/time seen: 02/08/23 09:02 24h events: Pt placed on ASV 100% this AM and had fully spontaneous breathing with Pi ~10, but became labored with abdominal breathing and was placed back on AC. On Precedex and fentanyl, not following commands. Stopped Versed yesterday AM. Review of Systems Review of Systems: ROS unobtainable: Yes unobtainable due to endotracheal tube Exam Narrative: morbidly obese Patient is comfortable, NAD HEENT: ET tube in place LUNGS: coarse bilaterally CV: RRR ABD: soft, NT Lower extremities: 1+ edema BUE and BLE SKIN: nonjaundiced Neuro: on vent and sedated, withdraws all extremities to pain, PERRL Objective Data Vital Signs Vital Signs: Vital Signs - 24 hr 02/07/23 09:56 02/07/23 10:00 02/07/23 10:00 Temperature 98.1 F Pulse Rate 94 81 85 Respiratory Rate 24 H 18 Blood Pressure 156/69 H Pulse Oximetry 93 Oxygen Delivery Fraction of Inspired Oxygen 02/07/23 11:06 02/07/23 11:26 02/07/23 12:00 Temperature Pulse Rate 92 92 92 Respiratory Rate 22 H Blood Pressure Pulse Oximetry 93 Oxygen Delivery Mechanical Ventilation Fraction of Inspired Oxygen 35 02/07/23 12:00 02/07/23 12:00 02/07/23 12:00 Temperature 98.5 F Pulse Rate 92 92 Respiratory Rate 18 18 Blood Pressure 123/61 Pulse Oximetry 94 94 Oxygen Delivery Mechanical Ventilation Fraction of Inspired Oxygen 35 35 02/07/23 13:51 02/07/23 13:54 02/07/23 13:57 Temperature Pulse Rate 92 79 79 Respiratory Rate 23 H 17 Blood Pressure Pulse Oximetry 95 Oxygen Delivery Mechanical Ventilation Fraction of Inspired Oxygen 35 02/07/23 14:00 02/07/23 14:00 02/07/23 14:56 Temperature 99.1 F Pulse Rate 81 80 79 Respiratory Rate 15 Blood Pressure 117/55 L Pulse Oximetry 9
[2023-02-08] MEDS: FENTANYL 2,500MCG/NS250ML(*CRX 2,500 MCG/250 ML BAG IV CONT (10:21)
[2023-02-08] MEDS: FUROSEMIDE INJ 100 MG/10 ML VIAL 80 MG IV PUSH ×2 (11:22→18:05)
--- NOTE | 2023-02-08 11:40 | PCNFU ---
Nutrition Follow-Up Complete: Inadequate Oral Intake as related to mechanical vent and as evidenced by NPO. Goal: Meet estimated nutritional needs Patient will continue current goal. Pt current nutrition is Vitlal AF 1.2 at 50 ml/hr. Last recorded weight is 97.8 kg. Bowel Motility:No BM reported Labs Reviewed:BUN 48, Na 136, Hct 25.0,Hgb 7.4 Meds Noted:Heparin, Protonix, Lasix, Precedex, Miralax,Vancomycin Skin:BUN 48, Na 136, Hct 25.0,Hgb 7.4 Additional Notes: Patient remains on mechanical vent and tube feedings of Vital AF 1.2 at 50 ml/hr and tolerating per nursing. Tube feeding is providing 1320 kcals/82 gms protein/886 ml water. Tube feedings meeting 100% of patients caloric needs at 14 kcal/kg and 100% protein needs. Flush 30 ml q 4 hours. Agree with diet orders. Will monitor during ICU rounds and reassess every Saturday and Saturday.
[2023-02-08] MEDS: polyethylene glycoL 3350 17 GM POWD.PACK PO (12:08)
[2023-02-08 12:35] LABS: Partial Thromboplastin Time 137.3 SECONDS (22.3-36.8)
[2023-02-08] MEDS: dexmedeTOMIDine 400 MCG/100 ML 400 MCG/100 ML BAG 12.53 MCG IV CONT ×2 (13:58→22:14)
[2023-02-08 20:23] LABS: Partial Thromboplastin Time 66.5 SECONDS (22.3-36.8)
[2023-02-08 22:37] LABS: Vancomycin Trough 27.9 ug/mL (10.0-20.0)
[2023-02-09] VITALS (117 sets, daily range): BP systolic 65–155; BP diastolic 41–101; PULSE 74–118; RESP 22–38; TEMP 37.2–38.4; O2SAT 90–98
[2023-02-09] MEDS: HEPARIN SOD/D5W 100 UNITS/ML 25,000 UNITS/250 ML BAG 10 UNITS IV CONT (00:38)
[2023-02-09] MEDS: ALBUTEROL SULFATE NEB 2.5 MG/3 ML INH INHALATION ×4 (02:17→20:20)
[2023-02-09] MEDS: IPRATROPIUM BR 0.02% INH SOLN 0.5 MG/2.5 ML VIAL INHALATION ×4 (02:17→20:20)
[2023-02-09 03:32] LABS: Hematocrit 27.5 % (37.0-47.0); Hemoglobin 8.2 g/dL (12.0-15.0); Mean Corpuscular HGB Conc 29.8 g/dl (32-36); Mean Corpuscular Hemoglobin 25.8 pg (26-34); Mean Corpuscular Volume 86.5 fl (80-100); Mean Platelet Volume 11.1 fl (7.4-10.4); Platelet Count Result 208 k/mm3 (150-375); Red Blood Count 3.18 M/mm3 (4.2-5.4); Red Cell Distribution Width 18.3 % (11.5-14.5)
[2023-02-09 03:34] LABS: White Blood Count 66.8 K/mm3 (4.5-10.0)
[2023-02-09 03:44] LABS: Alanine Aminotransferase 76 U/L (6-35); Albumin Level 3.6 g/dL (3.5-5.1); Alkaline Phosphatase 129 U/L (38-126); Anion Gap 7 mmol/L (8-16); Aspartate Amino Transferase 55 U/L (14-36); Bilirubin,Total 0.7 mg/dL (0.2-1.3); Blood Urea Nitrogen 53 mg/dL (7-17); Calcium 9.3 mg/dL (8.4-10.2); Carbon Dioxide 34 mmol/L (22-30); Chloride 91 mmol/L (98-107); Estimated CRCL calculation 50 ml/min; Estimated Glomerular Filt Rate 60; Glucose 111 mg/dL (65-110); Magnesium 1.9 mg/dL (1.6-2.3); Sodium 132 mmol/L (137-145)
[2023-02-09 03:46] LABS: Partial Thromboplastin Time 104.6 SECONDS (22.3-36.8)
[2023-02-09] MEDS: dexmedeTOMIDine 400 MCG/100 ML 400 MCG/100 ML BAG 12.53 MCG IV CONT ×2 (06:16→12:36)
[2023-02-09] MEDS: CENTRAL LINE FLUSH 10 ML IV PUSH ×3 (06:18→20:53)
[2023-02-09] MEDS: LEVOTHYROXINE SODIUM 75 MCG TABLET FEED TUBE (06:18)
[2023-02-09 06:19] LABS: Legionella pneumophila Ag Ur Not Detected (Not Detected)
[2023-02-09 06:45] LABS: Alveolar/Arterial O2 Gradient 167.9 mmHg; Base Excess ABG 6.9 mEq/l (+/-2.0); Fractional Inspired Oxygen 40 %; HCO3 ABG 30.4 mEq/l (22.0-26.0); Methemoglobin ABG 0.1 %THb (0-1.5); Oxygen Content ABG 12.5 %vol (16.0-22.0); Oxygen Saturation ABG 95.8 % (95.0-100.0); Oxyhemoglobin 93.2 % THb (90.0-100.0); PCO2 ABG 39.1 mmHg (35.0-45.0); PO2 ABG 72.3 mmHg (80.0-100.0); PO2 FiO2 Ratio Arterial Blood 1.81 %; Reduced Hemoglobin 5.7 %THb (0-5.0); Total Hemoglobin 9.5 g/dL (12.0-18.0)
[2023-02-09 06:48] LABS: pH ABG 7.509 (7.350-7.450)
[2023-02-09 06:49] LABS: Arterial Blood Gas PEEP 5 cmH2O; Arterial Blood Gas Tidal Volume 380 ml; Arterial Blood Gas Vent Mode CMV; Arterial Blood Gas Ventilator rate 12 /MIN; Device VENTILATOR; Modified Allen's Test Pass; Site Drawn LEFT RADIAL
[2023-02-09] MEDS: FUROSEMIDE INJ 100 MG/10 ML VIAL 80 MG IV PUSH (08:04)
[2023-02-09] MEDS: ASPIRIN 81 MG CHEWABLE TABLET PO (08:05)
[2023-02-09] MEDS: MINERAL OIL/WHITE PETROLATUM OINTMENT 1 APPLIC EACH EYE ×2 (08:05→20:53)
[2023-02-09] MEDS: AMIODARONE HCL 200 MG TABLET 400 MG PO (08:05)
[2023-02-09] MEDS: PANTOPRAZOLE SODIUM IV 40 MG VIAL IV PUSH (08:05)
[2023-02-09] MEDS: methylPREDNISolone SOD SUCC 40 MG VIAL IV PUSH (08:05)
[2023-02-09 09:24] LABS: Partial Thromboplastin Time 80.5 SECONDS (22.3-36.8)
--- NOTE | 2023-02-09 09:42 | WPDINTPN ---
Progress Note: A&P Assessment and Plan (1) Acute and chronic respiratory failure with hypoxia: Code(s): J96.21 - Acute and chronic respiratory failure with hypoxia Status: Acute Assessment and Plan: PFTs 11/22 - ? Restrictive pattern? on spirometry.? Severely reduced lung diffusion capacity. Uninterpretable lung volumes. 12/24 nuclear pulmonary perfusion scan was nondiagnostic with intermittent probability 02/[address] with contrast Left lower lobe mass and patchy bilateral airspace opacities of the lungs. Given the relatively short interval between comparison examinations, findings are most consistent with multifocal pneumonia. Chest x-ray reviewed 1. Diffuse bilateral lung disease most likely multifocal pneumonia with differential including pulmonary edema with some improvement in the left mid and lower lung zones. Acute on chronic multifactorial Respiratory failure secondary to COPD, restrictive lung disease, congestive heart failure, left lower lung mass, community-acquired pneumonia Continue full mechanical ventilation support to prevent hypoxemia/hypercarbia and end organ damage. She failed weaning trial today with high RSBI Continue steroids diuretics Her sputum culture grew MRSA Continue vancomycin and Rocephin She has completed a course of azithromycin defer further workup for lung mass depending on her improvement of pneumonia (2) Multifocal pneumonia: Code(s): J18.9 - Pneumonia, unspecified organism Status: Acute Assessment and Plan: see above (3) Obstructive sleep apnea on CPAP: Code(s): G47.33 - Obstructive sleep apnea (adult) (pediatric); Z99.89 - Dependence on other enabling machines and devices Status: Acute Assessment and Plan: see above (4) Chronic obstructive pulmonary disease: Code(s): J44.9 - Chronic obstructive pulmonary disease, unspecified Status: Acute Assessment and Plan: see above (5) Restrictive lung disease: Code(s): J98.4 - Other disorders of lung Status: Acute Assessment and Plan: see above (6) Decreased diffusion capacity: Code(s): R94.2 - Abnormal results of pulmonary function studies Status: Acute Assessment and Plan: see above (7) Ventricular tachycardia: Code(s): I47.20 - Ventricular tachycardia, unspecified Status: Acute Assessment and Plan: Cardiology following Patient on p.o. amiodarone (8) Congestive heart failure: Code(s): I50.9 - Heart failure, unspecified Status: Acute Assessment and Plan: Echo Summary ? 1. Left ventricular chamber dimension is normal. ? 2. There is mildly increased left ventricular wall thickness. ? 3. Left ventricular systolic function is normal, estimated at 55-60%. ? 4. There is hypokinesis of the mid inferoseptum, mid inferior, mid anterior and mid anteroseptal barba. ? 5. The left ventricular diastolic function is grade I diastolic dysfunction. ? 6. Global longitudinal strain is abnormal at -12 %. ? 7. Right ventricular systolic function is normal. ? 8. Left atrial chamber dimension is mildly enlarged. ? 9. Right atrial chamber dimension is mildly enlarged. ? 10. The mitral valve annulus is moderately calcified. ? 11. There is mild to moderate tricuspid valve regurgitation. (9) Shock: Code(s): R57.9 - Shock, unspecified Status: Acute Assessment and Plan: Off Levophed now (10) Acute kidney injury: Code(s): N17.9 - Acute kidney failure, unspecified Status: Acute Assessment and Plan: Improved (11) DVT (deep venous thrombosis): Code(s): I82.409 - Acute embolism and thrombosis of unspecified deep veins of unspecified lower extremity Status: Acute Assessment and Plan: ?Deep vein thrombosis involving the right posterior tibial and peroneal veins. Continue heparin infusion (12) Leukocytosis: Code(s): D72.829 - Elevated white blood ce
--- NOTE | 2023-02-09 10:53 | PM.IMPN ---
Progress Note: A&P Assessment and Plan (1) Acute and chronic respiratory failure with hypoxia: Code(s): J96.21 - Acute and chronic respiratory failure with hypoxia Status: Acute Assessment and Plan: Acute on chronic multifactorial Respiratory failure secondary to COPD, restrictive lung disease, congestive heart failure, left lower lung mass, community-acquired pneumonia Continue full mechanical ventilation support Continue steroids diuretics Her sputum culture grew MRSA Continue vancomycin and Rocephin She has completed a course of azithromycin (2) Multifocal pneumonia: Code(s): J18.9 - Pneumonia, unspecified organism Status: Acute Assessment and Plan: see above (3) Obstructive sleep apnea on CPAP: Code(s): G47.33 - Obstructive sleep apnea (adult) (pediatric); Z99.89 - Dependence on other enabling machines and devices Status: Acute Assessment and Plan: see above (4) Chronic obstructive pulmonary disease: Code(s): J44.9 - Chronic obstructive pulmonary disease, unspecified Status: Acute Assessment and Plan: see above (5) Restrictive lung disease: Code(s): J98.4 - Other disorders of lung Status: Acute Assessment and Plan: see above (6) Decreased diffusion capacity: Code(s): R94.2 - Abnormal results of pulmonary function studies Status: Acute Assessment and Plan: see above (7) Ventricular tachycardia: Code(s): I47.20 - Ventricular tachycardia, unspecified Status: Acute Assessment and Plan: Cardiology following Patient on p.o. amiodarone (8) Congestive heart failure: Code(s): I50.9 - Heart failure, unspecified Status: Acute Assessment and Plan: Echo Summary ? 1. Left ventricular chamber dimension is normal. ? 2. There is mildly increased left ventricular wall thickness. ? 3. Left ventricular systolic function is normal, estimated at 55-60%. ? 4. There is hypokinesis of the mid inferoseptum, mid inferior, mid anterior and mid anteroseptal barba. ? 5. The left ventricular diastolic function is grade I diastolic dysfunction. ? 6. Global longitudinal strain is abnormal at -12 %. ? 7. Right ventricular systolic function is normal. ? 8. Left atrial chamber dimension is mildly enlarged. ? 9. Right atrial chamber dimension is mildly enlarged. ? 10. The mitral valve annulus is moderately calcified. ? 11. There is mild to moderate tricuspid valve regurgitation. (9) Shock: Code(s): R57.9 - Shock, unspecified Status: Acute Assessment and Plan: Off Levophed now (10) Acute kidney injury: Code(s): N17.9 - Acute kidney failure, unspecified Status: Acute Assessment and Plan: Improved (11) DVT (deep venous thrombosis): Code(s): I82.409 - Acute embolism and thrombosis of unspecified deep veins of unspecified lower extremity Status: Acute Assessment and Plan: ?Deep vein thrombosis involving the right posterior tibial and peroneal veins. Continue heparin infusion (12) Leukocytosis: Code(s): D72.829 - Elevated white blood cell count, unspecified Status: Acute Assessment and Plan: Likely leukemoid reaction from sepsis, Hematology is following. Steroids may also be playing a role. (13) Anemia: Code(s): D64.9 - Anemia, unspecified Status: Acute Assessment and Plan: Patient has a multifactorial anemia including iron deficiency Started on iron infusion by Hematology Plan DVT prophylaxis -heparin drip Stress ulcer prophylaxis - PPI Nutrition - start Tube Feeds Code Status - Full Code Total Critical Care Time - 32 minutes Due to a high probability of clinically significant, life threatening deterioration, the patient required my highest level of preparedness to intervene emergently and I personally spent this critical care time directly and personally managing the patien
[2023-02-09] MEDS: ACETAMINOPHEN ELIXIR 325 MG/10.15 ML UDC 650 MG FEED TUBE ×2 (12:36→17:26)
[2023-02-09] MEDS: NOREPINEPHRINE 8 MG/D5W 250 ML 8 MG/250 ML BAG 9.38 MG IV CONT (16:27)
[2023-02-09] MEDS: dexmedeTOMIDine 400 MCG/100 ML 400 MCG/100 ML BAG 17.54 MCG IV CONT (22:04)
[2023-02-10] VITALS (65 sets, daily range): BP systolic 33–168; BP diastolic 12–102; PULSE 0–129; RESP 27–47; TEMP 38–38.7; O2SAT 0–100
[2023-02-10] MEDS: IPRATROPIUM BR 0.02% INH SOLN 0.5 MG/2.5 ML VIAL INHALATION ×2 (01:59→07:10)
[2023-02-10] MEDS: ALBUTEROL SULFATE NEB 2.5 MG/3 ML INH INHALATION ×2 (01:59→07:10)
--- NOTE | 2023-02-10 03:09 | PC.NURSE ---
Daylight Savings Time For Daylight Savings Time Ending in the Fall - Clocks are moved back. For Daylight Savings Time Beginning in the Spring - Clocks are moved ahead. For [facility], the time of change occurs at 0200 hrs. Time is taken from the fire observer. This entry on the patient's chart recognizes the change in time reflected during documentation. Example: 2 entries for vital signs may be charted for 0200 hrs.
[2023-02-10] MEDS: ACETAMINOPHEN ELIXIR 325 MG/10.15 ML UDC 650 MG FEED TUBE (03:54)
[2023-02-10] MEDS: polyethylene glycoL 3350 17 GM POWD.PACK PO (03:55)
[2023-02-10] MEDS: HEPARIN SOD/D5W 100 UNITS/ML 25,000 UNITS/250 ML BAG 10 UNITS IV CONT (03:57)
[2023-02-10] MEDS: dexmedeTOMIDine 400 MCG/100 ML 400 MCG/100 ML BAG 20.04 MCG IV CONT (04:30)
[2023-02-10 05:55] LABS: Alveolar/Arterial O2 Gradient 121.7 mmHg; Carboxyhemoglobin 0.2 % THb (0-2.0); Fractional Inspired Oxygen 30 %; HCO3 ABG 25.4 mEq/l (22.0-26.0); Methemoglobin ABG 0.2 %THb (0-1.5); Oxygen Content ABG 11.8 %vol (16.0-22.0); Oxygen Saturation ABG 88.9 % (95.0-100.0); PO2 ABG 51.1 mmHg (80.0-100.0); Reduced Hemoglobin 16.7 %THb (0-5.0); Total Hemoglobin 10.1 g/dL (12.0-18.0)
[2023-02-10 05:59] LABS: Modified Allen's Test Pass; Oxyhemoglobin 82.9 % THb (90.0-100.0); Site Drawn LEFT RADIAL
[2023-02-10 06:00] LABS: Arterial Blood Gas PEEP 5 cmH2O; Arterial Blood Gas Tidal Volume 380 ml; Arterial Blood Gas Vent Mode CMV; Arterial Blood Gas Ventilator rate 24 /MIN; Device VENTILATOR
[2023-02-10 06:03] LABS: pH ABG 7.478 (7.350-7.450)
[2023-02-10] MEDS: LEVOTHYROXINE SODIUM 75 MCG TABLET FEED TUBE (06:26)
[2023-02-10] MEDS: CENTRAL LINE FLUSH 10 ML IV PUSH (06:26)
[2023-02-10 06:30] LABS: Alveolar/Arterial O2 Gradient 121.2 mmHg; Carboxyhemoglobin 0.3 % THb (0-2.0); Fractional Inspired Oxygen 30 %; HCO3 ABG 24.2 mEq/l (22.0-26.0); Methemoglobin ABG 0.5 %THb (0-1.5); Oxygen Saturation ABG 91.1 % (95.0-100.0); PCO2 ABG 32.4 mmHg (35.0-45.0); PO2 ABG 54.6 mmHg (80.0-100.0); PO2 FiO2 Ratio Arterial Blood 1.82 %; Reduced Hemoglobin 13.2 %THb (0-5.0); pH ABG 7.492 (7.350-7.450)
[2023-02-10 06:31] LABS: Total Hemoglobin 7.4 g/dL (12.0-18.0)
[2023-02-10 06:32] LABS: Arterial Blood Gas PEEP 5 cmH2O; Arterial Blood Gas Vent Mode CMV; Arterial Blood Gas Ventilator rate 24 /MIN; Device VENTILATOR; Modified Allen's Test Pass; Site Drawn LEFT RADIAL
[2023-02-10 06:33] LABS: Arterial Blood Gas Tidal Volume 380 ml
[2023-02-10 06:53] LABS: Hematocrit 21.3 % (37.0-47.0); Mean Corpuscular HGB Conc 29.1 g/dl (32-36); Mean Corpuscular Hemoglobin 25.8 pg (26-34); Mean Corpuscular Volume 88.8 fl (80-100); Mean Platelet Volume 11.4 fl (7.4-10.4); Platelet Count Result 235 k/mm3 (150-375); Red Cell Distribution Width 18.7 % (11.5-14.5)
[2023-02-10 07:05] LABS: Hemoglobin 6.2 g/dL (12.0-15.0); White Blood Count 148.6 K/mm3 (4.5-10.0)
[2023-02-10 07:10] LABS: Alanine Aminotransferase 65 U/L (6-35); Albumin Level 3.1 g/dL (3.5-5.1); Alkaline Phosphatase 107 U/L (38-126); Anion Gap 12 mmol/L (8-16); Aspartate Amino Transferase 65 U/L (14-36); Bilirubin,Total 0.8 mg/dL (0.2-1.3); Blood Urea Nitrogen 72 mg/dL (7-17); Calcium 8.1 mg/dL (8.4-10.2); Carbon Dioxide 29 mmol/L (22-30); Chloride 88 mmol/L (98-107); Estimated CRCL calculation 23 ml/min; Estimated Glomerular Filt Rate 24; Glucose 135 mg/dL (65-110); Magnesium 1.9 mg/dL (1.6-2.3); Potassium 4.1 mmol/L (3.4-5.0); Sodium 129 mmol/L (137-145)
[2023-02-10] MEDS: NOREPINEPHRINE 8 MG/D5W 250 ML 8 MG/250 ML BAG 46.88 MG IV CONT (07:24)
[2023-02-10] MEDS: MIDAZOLAM HCL (*CRX) 2 MG/2 ML VIAL IV PUSH (08:12)
[2023-02-10] MEDS: PANTOPRAZOLE SODIUM IV 40 MG VIAL IV PUSH (08:12)
[2023-02-10] MEDS: ALBUMIN HUMAN 5% 25 GM/500 ML BTL IV CONT (08:13)
[2023-02-10] MEDS: LACTATED RINGERS 500 ML 100 ML IV CONT (08:15)
[2023-02-10] MEDS: VASOPRESSIN INJ 100 UNITS in DEXTROSE 5% 95 ML IV CONT (08:17)
--- NOTE | 2023-02-10 09:07 | WPDINTPN ---
Progress Note: A&P Assessment and Plan (1) Acute and chronic respiratory failure with hypoxia: Code(s): J96.21 - Acute and chronic respiratory failure with hypoxia Status: Acute (2) Multifocal pneumonia: Code(s): J18.9 - Pneumonia, unspecified organism Status: Acute (3) Obstructive sleep apnea on CPAP: Code(s): G47.33 - Obstructive sleep apnea (adult) (pediatric); Z99.89 - Dependence on other enabling machines and devices Status: Acute (4) Chronic obstructive pulmonary disease: Code(s): J44.9 - Chronic obstructive pulmonary disease, unspecified Status: Acute (5) Restrictive lung disease: Code(s): J98.4 - Other disorders of lung Status: Acute (6) Decreased diffusion capacity: Code(s): R94.2 - Abnormal results of pulmonary function studies Status: Acute (7) Ventricular tachycardia: Code(s): I47.20 - Ventricular tachycardia, unspecified Status: Acute (8) Congestive heart failure: Code(s): I50.9 - Heart failure, unspecified Status: Acute Assessment and Plan: Echo Summary ? 1. Left ventricular chamber dimension is normal. ? 2. There is mildly increased left ventricular wall thickness. ? 3. Left ventricular systolic function is normal, estimated at 55-60%. ? 4. There is hypokinesis of the mid inferoseptum, mid inferior, mid anterior and mid anteroseptal barba. ? 5. The left ventricular diastolic function is grade I diastolic dysfunction. ? 6. Global longitudinal strain is abnormal at -12 %. ? 7. Right ventricular systolic function is normal. ? 8. Left atrial chamber dimension is mildly enlarged. ? 9. Right atrial chamber dimension is mildly enlarged. ? 10. The mitral valve annulus is moderately calcified. ? 11. There is mild to moderate tricuspid valve regurgitation. (9) Shock: Code(s): R57.9 - Shock, unspecified Status: Acute Assessment and Plan: Off Levophed now (10) Acute kidney injury: Code(s): N17.9 - Acute kidney failure, unspecified Status: Acute (11) DVT (deep venous thrombosis): Code(s): I82.409 - Acute embolism and thrombosis of unspecified deep veins of unspecified lower extremity Status: Acute (12) Leukocytosis: Code(s): D72.829 - Elevated white blood cell count, unspecified Status: Acute (13) Anemia: Code(s): D64.9 - Anemia, unspecified Status: Acute Plan Overnight patient deteriorated with increased vasopressor requirement decreased urine output. Hemoglobin this morning up to 6.2 with increase in WBC count to 148K. Her creatinine had increased to 2.0. She was on 25 mics of Levophed this morning. I reviewed patient's lab imaging and examined the patient this morning. I discontinued Precedex and heparin infusion, ordered 2 units of PRBC, change her Protonix to IV q.12 hours, checked her OG tube for any bloody suction order stool Hemoccult. I added vasopressin for shock. Ordered IV fluid bolus and albumin bolus for shock. I sent her down for stat CT chest abdomen pelvis evaluate for any hematoma Her blood pressure continued to deteriorate and we had to add epinephrine. Her CT scan of abdomen confirmed retroperitoneal hemorrhage. I ordered 25 mg of protamine to reverse heparin. Patient's nurse had called and notified patient's family about the turn of events when she called to obtain consent for blood transfusion. Patient's 2 sons and daughter arrived at bedside and I updated them with events overnight including shock, drop in hemoglobin, acute kidney injury and findings of CT scan of retroperitoneal hematoma. I updated them with our current treatment plan vasopressors, continued mechanical ventilation, transfusion of PRBC and protamine to try to reverse the effect of heparin. I also discussed patient's prognosis which is poor overall. They told me that they do not think the patient would want to continue suffering on a mechanical ventilati
[2023-02-10] MEDS: MORPHINE SULFATE INJ (*CRX) 10 MG/ML AMP 5 MG IV PUSH (09:19)
[2023-02-10] MEDS: LORazepam INJ (*CRX) 2 MG/ML VIAL IV PUSH (09:20)
[2023-02-10] MEDS: ATROPINE SULFATE 1% OPHTH SOLN 5 ML BOTTLE SUBLINGUAL (09:25)
[2023-02-10] MEDS: MORPHINE SULFATE (*CRX) 2 MG/ML INJ 4 MG IV PUSH (10:05)
--- NOTE | 2023-02-10 11:52 | PC.NURSE ---
1054-Patient asystole on monitor assessment with LAZARO Nazario confirmed no responses, reflexes, or heart tones initiated. Family at bedside. 1136-Spoke to Frankie at [facility] , stated patient was not a candidate for donation, and body can be released.
--- NOTE | 2023-02-10 12:05 | PM.DDS ---
Discharge Summary Date and Time Date of : 02/10/23 Time of : 10:54 Provider Pronounced By: Karolina WILLIS and Tyron WILLIS Probable Cause of Probable Cause of : Sepsis, pneumonia Summary Hospital Course: Patient was admitted for sepsis multifocal pneumonia in [place]. Patient was admitted ICU on ventilatory support. Patient's condition deteriorated and pussy subsequently . Additional Data Confirmation of as documented by pronouncing clinician: Pupillary Reflex, Palpable Pulses, Response to Stimuli, Heart Tones and Breath Sounds Name of Provider Notified: Srinivasan Time Provider Notified: 11:00 Provider Requests Autopsy: No Family Requests Autopsy: No [employer] Notified: Yes Date [facility] Notified of : 02/10/23 Time [facility] Notified of : 11:20
== END 2023-02-10 10:54 | disposition expired | DRG 870 ==
LOC: ANHED 19:12 → ANHICU 20:24
PROVIDERS: Internal Medicine; Internal Medicine Critical Care Medicine; Internal Medicine Hematology & Oncology; Physician Assistant; Admitting Provider Hospitalist; Emergency Provider Physician Assistant; PCP Family Medicine; Visit Provider Chiropractor
DX: A41.9 Sepsis, unspecified organism (principal); J18.9 Pneumonia, unspecified organism; J96.21 Acute and chronic respiratory failure with hypoxia; I21.A1 Myocardial infarction type 2; I47.20 Ventricular tachycardia, unspecified; J44.0 Chronic obstructive pulmonary disease with (acute) lower respiratory infection; I50.30 Unspecified diastolic (congestive) heart failure; R57.9 Shock, unspecified; N17.9 Acute kidney failure, unspecified; I82.451 Acute embolism and thrombosis of right peroneal vein; I82.441 Acute embolism and thrombosis of right tibial vein; G47.33 Obstructive sleep apnea (adult) (pediatric); J98.4 Other disorders of lung; I11.0 Hypertensive heart disease with heart failure; D50.9 Iron deficiency anemia, unspecified; I48.0 Paroxysmal atrial fibrillation; E03.9 Hypothyroidism, unspecified; M31.6 Other giant cell arteritis; Z20.822 Contact with and (suspected) exposure to COVID-19; Z79.899 Other long term (current) drug therapy
CPT/HCPCS: 31500; 36415; 36430; 36600; 70450; 71045; 71250; 71260; 74176; 80053; 80202; 81003; 82375; 82550; 82570; 82607; 82728; 82746; 82805; 82948; 83050; 83540; 83550; 83605; 83735; 83880; 84145; 84300; 84443; 84484; 85025; 85027; 85055; 85610; 85652; 85730; 86140; 86738; 86850; 86900; 86901; 86923; 87040; 87070; 87077; 87081; 87186; 87205; 87449; 87636; 87899; 93005; 93970; 94003; 94640; 96365; 96366; 96367; 96375; 96376; 99291; A9270; C1751; C8929; C9113; J0282; J0330; J0696; J1644; J1650; J1756; J1940; J2060; J2250; J2270; J2920; J2930; J3010; J3370; J3475; J7030; J7040; J7120; P9016; P9045; Q9967